=== PATIENT | female | born 1945 | race Caucasian/White ===

== ENCOUNTER 2019-12-12 15:01 | Emergency (ER) | payer MEDICARE, SELFPAY ==
--- NOTE | ~2019-12-12 | XR_ITS ---
EXAMINATION: XR chest 2V EXAM DATE: 12/12/2019 15:33 INDICATION: Cough and shortness of breath. TECHNIQUE: Frontal and lateral projections of the chest obtained and reviewed. Comparison is made to prior examination from 01/14/2016. FINDINGS: The lungs are clear. There are no pleural effusions. The cardiomediastinal silhouette is within normal limits. There is no pneumothorax suspected. The bones and soft tissues are unremarkab le. IMPRESSION: No acute cardiopulmonary findings. Reviewed, dictated and finalized at location A. ICIAN HELPER
--- NOTE | 2019-12-12 15:02 | ED.GENADULT ---
HPI - General Adult General Chief complaint: Upper Respiratory Infection Stated complaint: difficulty breathing Time Seen by Provider: 12/12/19 15:18 Source: patient Mode of arrival: ambulatory Limitations: no limitations History of Present Illness HPI narrative: 74-year-old female patient presents to the [facility] with complaints of shortness of breath that started today. Patient states that she has been sick for the last 3 weeks. Never ran a fever or had body aches or chills but states that she did have some nausea and vomiting. Patient states she has been feeling weak and tired. Patient thought she might of had the flu. Patient states she did get a flu shot this year. Patient denies taking anything for her symptoms. Patient states she presents today with complaints of shortness of breath that started today and a cough. Patient denies running any fevers. Patient states she has not followed up with her primary doctor since her symptoms began. Related Data Home Medications Medication Instructions Recorded Confirmed levothyroxine 50 mcg tablet 50 mcg PO DAILY 08/12/19 lithium carbonate 300 mg capsule 300 mg PO BID 08/12/19 lorazepam 1 mg tablet 1 mg PO DAILY PRN 08/12/19 omeprazole 40 mg capsule,delayed 40 mg PO DAILY 08/12/19 release trazodone 150 mg tablet 150 mg PO .COMPLEX tablet 08/12/19 Allergies Allergy/AdvReac Type Severity Reaction Status Date / Time carbamazepine Allergy Unknown Nausea Verified 11/23/19 11:41 codeine Allergy Unknown sensitive Verified 11/23/19 11:41 divalproex sodium [Depakote] Allergy Unknown manic Verified 11/23/19 11:41 gemfibrozil Allergy Unknown Nausea Verified 11/23/19 11:41 lovastatin Allergy Unknown Unknown Verified 11/23/19 11:41 morphine Allergy Unknown Unknown Verified 11/23/19 11:41 oxycodone Allergy Unknown Unknown Verified 11/23/19 11:41 phenazopyridine Allergy Unknown Nausea Verified 11/23/19 11:41 prednisone Allergy Unknown manic Verified 11/23/19 11:41 risperidone Allergy Unknown NOt right Verified 11/23/19 11:41 rosuvastatin Allergy Unknown Unknown Verified 11/23/19 11:41 Sulfa (Sulfonamide Allergy Unknown ITCHING Verified 11/23/19 11:41 Antibiotics) topiramate Allergy Unknown Nausea Verified 11/23/19 11:41 Review of Systems Review of Systems: Narrative: CONSTITUTIONAL: Denies fever, chills, or sweats. EYES: Denies visual changes, redness, or discharge. ENT: Denies rhinorrhea, congestion, sore throat, or otalgia. CARDIOVASCULAR: Denies chest pain, palpitations, or edema. RESPIRATORY: Positive cough with dyspnea. GASTROINTESTINAL: Denies abdominal pain, nausea, vomiting, or diarrhea. GENITOURINARY: Denies dysuria or hematuria. SKIN: Denies rash or itching. MUSCULOSKELETAL: Denies back pain, joint pain, or myalgia. NEUROLOGIC: Denies headache, numbness, or weakness. PSYCHIATRIC: Denies anxiety or depression. PMFSH Family History Family History Mother Family history of Alzheimer's disease Patient's mother is Father Patient's father is Other Depression Family history of cardiovascular disease Family history of malignant neoplasm of breast in first degree relative Social History Social History Smoking status: Former smoker Smoking end date: 10/07/75 Alcohol intake: never Comments At the time of my signature I agree with nursing past medical history, surgical, social, and family history. There is no relevant family history pertinent to the presenting complaint. Exam Narrative: Exam Narrative: GENERAL: Well-appearing, well-nourished, and in no acute distress. HEAD: Normocephalic, atraumatic. No tenderness noted to frontal and maxillary sinuses on palpation EYES: PERRLA and EOMI. ENT: Nares clear, no rhinorrhea or epistaxis. Mucous membranes moist. Posterior pharynx with no erythema, tonsil enlarge
[2019-12-12 15:03] VITALS: BP 125/69; PULSE 122; RESP 20; TEMP 36.5; O2SAT 98
--- NOTE | 2019-12-12 15:23 | ECG_ITS ---
Measurements Intervals [place] Rate: 106 P: 48 [place]: 152 QRS: 13 QRSD: 80 T: 64 QT: 326 QTc: 434 Interpretive Statements SINUS TACHYCARDIA INCOMPLETE RIGHT BUNDLE BRANCH BLOCK BASELINE ARTIFACT- I, III, AVL, V1 ABNORMAL ECG Electronically Signed On 12-16-2019 11:03:05 CDT by Seamus Ross D.O.
== END 2019-12-12 16:00 | disposition left against medical advice (07) ==
PROVIDERS: Emergency Provider Nurse Practitioner Family; PCP Family Medicine
DX: R06.02 Shortness of breath (principal); R00.0 Tachycardia, unspecified
CPT/HCPCS: 71046; 93005; 99213; G0463

== ENCOUNTER 2019-12-15 12:39 | Outpatient (CLI) | payer MEDICARE, SELFPAY ==
--- NOTE | ~2019-12-15 | CT_ITS ---
EXAMINATION: CTA chest PE protocol DATE: 12/15/2019 13:23 INDICATION: Dyspnea TECHNIQUE: Computed tomography angiography (CTA) of the chest was performed with 100 mL Omnipaque-350 intravenous contrast timed to evaluate the pulmonary arteries. Coronal maximum intensity projection 3D-reconstructions were created by the technologist. Automated exposure control and iterative reconst ruction technique were employed. Exam dose: 324.55 mGy-cm total exam DLP. COMPARISON: 12/11/2021 view chest FINDINGS: No CT evidence of pulmonary embolism; diagnostic contrast enhancement of the pulmonary adonay clark. No evidence of thoracic aortic aneurysm or dissection. No hilar or mediastinal mass lesion or lymphadenopathy. Normal heart size. No pericardial or pleural effusion. There is mild discoid atelectasis or scarring in the lower lobes. No pulmonary consolidation or suspi cious pulmonary mass lesion. Small sliding hiatal hernia. IMPRESSION: No evidence of pulmonary embolism Reviewed, dictated and finalized at [facility]. Reviewed, dictated and finalized at location B.
[2019-12-15 13:13] LABS: Estimated Glomerular Filt Rate > 60
== END 2019-12-15 12:40 | disposition home or self-care (01) ==
PROVIDERS: PCP Family Medicine; Visit Provider Family Medicine
DX: R06.00 Dyspnea, unspecified (principal); R07.9 Chest pain, unspecified
CPT/HCPCS: 36415; 71275; Q9967

== ENCOUNTER 2020-12-08 12:52 | Outpatient (CLI) | payer MEDICARE, SELFPAY ==
[2020-12-08 14:12] LABS: Lithium 0.7 mmol/L (0.6-1.2)
== END 2020-12-08 12:53 | disposition home or self-care (01) ==
PROVIDERS: Anesthesiology; PCP Family Medicine; Visit Provider Urology
DX: Z01.818 Encounter for other preprocedural examination (principal); F31.9 Bipolar disorder, unspecified
CPT/HCPCS: 36415; 80178

== ENCOUNTER 2020-12-09 15:34 | Outpatient (CLI) | payer MEDICARE, SELFPAY | END 2020-12-09 15:35 | disposition home or self-care (01) | LOC: ANHCOVIDVC 15:34 | PROVIDERS: PCP Family Medicine | DX: Z23 Encounter for immunization (principal) | CPT/HCPCS: 0001A; 91300 ==

== ENCOUNTER → 2020-12-13 02:15 | Outpatient (CLI) | payer MEDICARE, SELFPAY ==
[2020-12-13 22:46] LABS: SARS-CoV-2 RNA PCR Negative
== END ==
PROVIDERS: Family Provider Family Medicine; PCP Family Medicine; Visit Provider Urology
DX: Z01.812 Encounter for preprocedural laboratory examination (principal); Z20.822 Contact with and (suspected) exposure to COVID-19
CPT/HCPCS: C9803; U0003; U0005

== ENCOUNTER 2020-12-16 01:11 | Day surgery (SDC) | payer MEDICARE, SELFPAY ==
[2020-12-05 13:14] VITALS: BMI 30.9
--- NOTE | 2020-12-10 09:45 | PM.IMHP ---
H&P: HPI History of Present Illness Date/Time: 12/10/20 09:45 Chief Complaint: stress incontinence, cystocele Narrative: Rachelle Trinidad is a 75 year old female with stress incontinence and a cystocele Review of Systems Review of Systems: All systems reviewed & are unremarkable except as noted in HPI and below PMFSH Past Medical History Medical History (Updated 12/10/20 @ 09:49 by Barrington Claros MD) Obesity (BMI 30.0-34.9) Stress incontinence in female Family History Family History Mother Family history of Alzheimer's disease Patient's mother is Father Patient's father is Other Depression Family history of cardiovascular disease Family history of malignant neoplasm of breast in first degree relative Social History Social History Smoking packs per day: 1 Smoking cigarettes per day: 20.0 Years smoked: 5 Smoking pack-years: 5.00 Tobacco type: cigarettes Smoking end date: 10/07/75 Additional smoking assessment comments: QUIT 1976 Alcohol intake: never Substance use: never Substance use type: does not use Spiritual care concerns: No Meds Home Medications and Allergies Home Medications Medication Instructions Recorded Confirmed Type lorazepam 1 mg tablet 1 mg PO DAILY PRN 08/12/19 12/05/20 History omeprazole 40 mg capsule,delayed 40 mg PO DAILY #90 cap 12/14/19 12/05/20 Rx release lithium carbonate 300 mg capsule 300 mg PO BID #180 cap 05/02/20 12/05/20 Rx levothyroxine 50 mcg tablet See Rx Instructions .ROUTE 10/03/20 12/05/20 Rx .COMPLEX #90 tablet clonazepam 2 mg tablet 2 mg PO Q12H #180 tablet 11/04/20 12/05/20 Rx trazodone 150 mg tablet See Rx Instructions .ROUTE 11/07/20 12/05/20 Rx .COMPLEX #90 tablet valacyclovir [Valtrex] 1,000 mg PO DAILY 12/05/20 12/05/20 History duloxetine 60 mg capsule,delayed See Rx Instructions .ROUTE 12/09/20 Rx release .COMPLEX #180 capsule Allergies Allergy/AdvReac Type Severity Reaction Status Date / Time carbamazepine Allergy Unknown Nausea Verified 12/05/20 14:16 codeine Allergy Unknown sensitive Verified 12/05/20 14:16 divalproex sodium [Depakote] Allergy Unknown manic Verified 12/05/20 14:16 gemfibrozil Allergy Unknown Nausea Verified 12/05/20 14:16 lovastatin Allergy Unknown Joint Pain Verified 12/05/20 14:16 morphine Allergy Unknown Itching Verified 12/05/20 14:16 oxycodone Allergy Unknown Dizziness Verified 12/05/20 14:16 phenazopyridine Allergy Unknown Nausea Verified 12/05/20 14:16 prednisone Allergy Unknown manic Verified 12/05/20 14:16 risperidone Allergy Unknown NOt right Verified 12/05/20 14:16 rosuvastatin Allergy Unknown Joint Pain Verified 12/05/20 14:16 Sulfa (Sulfonamide Allergy Unknown ITCHING Verified 12/05/20 14:16 Antibiotics) topiramate Allergy Unknown Nausea Verified 12/05/20 14:16 Exam Const: General: cooperative and healthy appearing HENMT: Head: normal to inspection Ears: hearing grossly normal bilaterally Face and sinus: normal facial exam Eyes: General: appearance normal, both eyes and all related structures Resp: Effort & Inspection: normal respiratory effort and able to speak in complete sentences : Bimanual Exam- Adnexa, other: cystocele Back/Spine/Pelvis: Back: no CVA tenderness Skin: General skin exam: normal color Neuro: General: patient oriented x3 Extrem: General: normal to inspection Assessment and Plan Assessment and plan (1) JOELLE (stress urinary incontinence, female): Code(s): N39.3 - Stress incontinence (female) (male) Status: Acute Assessment and Plan: urethral sling (2) Cystocele: Qualifiers: Cystocele location: midline Qualified Code(s): N81.11 - Cystocele, midline Status: Acute Assessment and Plan: cystocele repair
[2020-12-16] VITALS (11 sets, daily range): BP systolic 93–128; BP diastolic 47–74; PULSE 75–84; RESP 12–18; TEMP 36.1–36.5; O2SAT 92–100
[2020-12-16] MEDS: LACTATED RINGERS 1,000 ML 30 ML IV CONT ×2 (07:00→09:13)
--- NOTE | 2020-12-16 07:17 | WPDHPUPDATE1 ---
History and Physical Update Update Date/Time: 12/16/20 07:17 History and Physical has been reviewed, including an updated exam of the patient. There are NO changes in the patient's condition. Risks, benefits, and alternatives have been discussed and questions answered. Patient agrees to proceed with procedure.
--- NOTE | 2020-12-16 07:23 | WPDANESEPPF ---
Anes - Initial Pre Proc Eval Procedure: Operation Date: 12/16/20 08:15 Proposed Procedures p Cystocele Repair - Barrington Claros MD s Urethral Sling - Barrington Claros MD Date/Time: 12/16/20 07:23 Surgeon: Barrington Claros MD Pre Op Diagnosis: cystocele, stress incontinence Patient Data Age: 75 Gender: F Height: 1.63 m Weight: 81.81 kg Allergies Allergy/AdvReac Type Severity Reaction Status Date / Time carbamazepine Allergy Unknown Nausea Verified 12/05/20 14:16 codeine Allergy Unknown sensitive Verified 12/05/20 14:16 divalproex sodium [Depakote] Allergy Unknown manic Verified 12/05/20 14:16 gemfibrozil Allergy Unknown Nausea Verified 12/05/20 14:16 lovastatin Allergy Unknown Joint Pain Verified 12/05/20 14:16 morphine Allergy Unknown Itching Verified 12/05/20 14:16 oxycodone Allergy Unknown Dizziness Verified 12/05/20 14:16 phenazopyridine Allergy Unknown Nausea Verified 12/05/20 14:16 prednisone Allergy Unknown manic Verified 12/05/20 14:16 risperidone Allergy Unknown NOt right Verified 12/05/20 14:16 rosuvastatin Allergy Unknown Joint Pain Verified 12/05/20 14:16 Sulfa (Sulfonamide Allergy Unknown ITCHING Verified 12/05/20 14:16 Antibiotics) topiramate Allergy Unknown Nausea Verified 12/05/20 14:16 Home Medications Medication Instructions Recorded Confirmed Type lorazepam 1 mg tablet 1 mg PO DAILY PRN 08/12/19 12/05/20 History omeprazole 40 mg capsule,delayed 40 mg PO DAILY #90 cap 12/14/19 12/05/20 Rx release lithium carbonate 300 mg capsule 300 mg PO BID #180 cap 05/02/20 12/05/20 Rx levothyroxine 50 mcg tablet See Rx Instructions .ROUTE 10/03/20 12/05/20 Rx .COMPLEX #90 tablet clonazepam 2 mg tablet 2 mg PO Q12H #180 tablet 11/04/20 12/05/20 Rx trazodone 150 mg tablet See Rx Instructions .ROUTE 11/07/20 12/05/20 Rx .COMPLEX #90 tablet valacyclovir [Valtrex] 1,000 mg PO DAILY 12/05/20 12/05/20 History duloxetine 60 mg capsule,delayed See Rx Instructions .ROUTE 12/09/20 Rx release .COMPLEX #180 capsule ECG: Date of Service: 12/12/19 Procedure(s): CA 12 lead EKG Accession Number(s): [id number] cc: ~ Measurements Intervals [place] Rate: 106 P: 48 [place]: 152 QRS: 13 QRSD: 80 T: 64 QT: 326 QTc: 434 Interpretive Statements SINUS TACHYCARDIA INCOMPLETE RIGHT BUNDLE BRANCH BLOCK BASELINE ARTIFACT- I, III, AVL, V1 ABNORMAL ECG Electronically Signed On 12-16-2019 11:03:05 CDT by Seamus Ross D.O. Dictated By: Seamus Ross DO 12/12/19 1525 Patient hx anesthesia problems: none Family hx anesthesia problems: none PMFSH Past Medical History Medical History (Updated 12/16/20 @ 07:26 by Edenilson Carroll MD) Bipolar disorder with psychotic features Hypertension Hypothyroidism (acquired) Obesity (BMI 30.0-34.9) Obsessive compulsive personality disorder Stress incontinence in female Family History Family History Mother Family history of Alzheimer's disease Patient's mother is Father Patient's father is Other Depression Family history of cardiovascular disease Family history of malignant neoplasm of breast in first degree relative Social History Social History Smoking packs per day: 1 Smoking cigarettes per day: 20.0 Years smoked: 5 Smoking pack-years: 5.00 Tobacco type: cigarettes Smoking end date: 10/07/75 Additional smoking assessment comments: QUIT 1975 Alcohol intake: never Substance use: never Substance use type: does not use Living arrangements: alone Spiritual care concerns: No An
[2020-12-16] MEDS: ceFAZolin 2 GM/D5W 50 ML 2 GM/50 ML BAG IVPB (08:18)
[2020-12-16] MEDS: BUPIVACAINE/EPINEPHRINE 0.25% 50 ML VIAL 10 ML INFILTRATE (08:44)
[2020-12-16] MEDS: KETOROLAC 15 MG/ML VIAL (*BKC) IV PUSH ×2 (08:52→21:04)
--- NOTE | 2020-12-16 09:10 | P.OP_ITS ---
Procedure Note - Detailed Date of procedure: 12/16/20 Pre-op diagnosis: cystocele, stress incontinence Cystocele Stress incontinence Post-op diagnosis: same Procedure performed: Cystocele repair/anterior colporrhaphy Urethral sling Cystoscopy Description of procedure: She understood the risks of bleeding, infection, damage to surrounding organs, dyspareunia, postoperative stress incontinence, and recurrence of prolapse, mesh exposure, obstructive voiding requiring secondary procedure. She agrees to proceed. She has correctly identified and informed consent was obtained and she was brought to the operating room. She was given general anesthesia. She was placed in the dorsal thigh position. She was prepped and draped in sterile fashion. Given appropriate perioperative antibiotics. A time-out was bright lzacano. I placed a Vital catheter. I placed a [place] retractor. I infiltrated the subcutaneous tissues of the anterior vaginal wall with local mixed with injectable saline. I made a midline vaginal incision. I dissected out laterally dissecting the mucosa off the underlying fascial structures. I dissected towards the vaginal apex as well. I then performed a standard cystocele repair with plicating sutures of 0 Vicryl. This reduced the cystocele. I then trimmed excess vaginal mucosa. I closed the vaginal closed with a running 2 0 Vicryl suture. I then marked on the inner thigh incisions. I anesthetized the skin and made those incisions. I anesthetized the anterior vaginal wall over the mid urethra. I made a 1 cm incision. I dissected out laterally. I took great care not to injure the urethra or the vaginal wall. I passed the trocars 1st on the left than on the right. I did this from the thigh incision towards the vaginal incision. The sling was connected to the trocars a nd brought out through the thigh incision. I tensioned the sling appropriately. I cut and and removed the plastic sheaths. I then closed the incision with 2 0 Vicryl. There was excellent hemostasis. I then performed cystoscopy. The bladder is examined. There is no surgical artifact or injury. Both ureteral orifices were seen to excrete clear yellow urine. At the conclusion she was awakened and transferred to the PACU in stable condition. Sponge count is correct x2. Implants: None Anesthesia: GETA Surgeon: Barrington Claros MD Drains: No Packing: No Pathology: none sent Complications: No immediate complications Condition: stable Disposition: PACU
--- NOTE | 2020-12-16 10:05 | SUR.PHASEI ---
1000 sbar faxed floor notified
[2020-12-16] MEDS: KCL 20 MEQ/D5/0.45% SOD CHL 1,000 ML 100 ML IV CONT (11:48)
[2020-12-16] MEDS: clonazePAM (*CRX) 0.5 MG TABLET 2 MG PO ×2 (11:51→21:54)
[2020-12-16] MEDS: DULoxetine HCL 60 MG CAPSULE.DR PO ×2 (11:52→21:54)
[2020-12-16] MEDS: DOCUSATE SODIUM 100 MG CAPSULE PO (11:52)
[2020-12-16] MEDS: PANTOPRAZOLE 40 MG TABLET PO (11:53)
[2020-12-16] MEDS: ACETAMINOPHEN 325 MG TABLET 650 MG PO ×3 (12:00→21:54)
--- NOTE | 2020-12-16 12:17 | PC.NURSE ---
1141 Called Pharmacy to send up Valtrex and [place] Carbonate. Stated it will be sent.
--- NOTE | 2020-12-16 12:18 | OBPPTRN ---
Patient transferred to post room #288 via bed @ 1047. Oriented to unit, room, information board, and security measures. Patient verbalizes understanding.
--- NOTE | 2020-12-16 12:57 | PC.NURSE ---
1255 left for Pharmacy to send up Valtrex and [place] Carbonate meds.
[2020-12-16] MEDS: LITHIUM CARBONATE 300 MG CAPSULE PO (16:13)
--- NOTE | 2020-12-16 16:20 | PC.NURSE ---
1535 Pharmacy only sent 1 500mg pill of Valtrex pt takes 2. Will hold till tomorrow.
[2020-12-16] MEDS: traZODone HCL 50 MG TABLET PO (21:54)
[2020-12-17 04:00] VITALS: BP 126/68; PULSE 91; RESP 16; TEMP 36.6; O2SAT 97
[2020-12-17] MEDS: ACETAMINOPHEN 325 MG TABLET 650 MG PO (05:11)
[2020-12-17] MEDS: LEVOTHYROXINE SODIUM 50 MCG TABLET PO (05:12)
[2020-12-17 08:00] VITALS: BP 120/67; PULSE 91; RESP 18; TEMP 36.7; O2SAT 100
[2020-12-17] MEDS: clonazePAM (*CRX) 0.5 MG TABLET 2 MG PO (09:16)
[2020-12-17] MEDS: valACYclovir HCL 500 MG TABLET 1000 MG PO (09:17)
[2020-12-17] MEDS: DULoxetine HCL 60 MG CAPSULE.DR PO (09:17)
[2020-12-17] MEDS: LITHIUM CARBONATE 300 MG CAPSULE PO (09:17)
[2020-12-17] MEDS: PANTOPRAZOLE 40 MG TABLET PO (09:17)
[2020-12-17] MEDS: DOCUSATE SODIUM 100 MG CAPSULE PO (09:17)
--- NOTE | 2020-12-17 09:55 | PC.NURSE ---
Patient states she drove herself here and will drive herself home. I advised against her driving herself home but she states she does not have anyone to come get her. I took her out to her car in a wheelchair, she stood up and was stable on her feet. She got in the car and drove off.
== END 2020-12-17 09:55 | disposition home or self-care (01) ==
LOC: ANHSURGERY 08:05 → ANHOB2 11:05
PROVIDERS: Family Provider Family Medicine; PCP Family Medicine; Visit Provider Urology
PROC: (CPT 57240; principal; 2020-12-16 08:15)
PROC: (CPT 57288; 2020-12-16 08:15)
DX: N81.11 Cystocele, midline (principal); N39.3 Stress incontinence (female) (male); F31.89 Other bipolar disorder; I10 Essential (primary) hypertension; E03.9 Hypothyroidism, unspecified; Z87.891 Personal history of nicotine dependence; E66.9 Obesity, unspecified; Z68.31 Body mass index [BMI] 31.0-31.9, adult
CPT/HCPCS: 57288; 57240; 99199; A9270; C1771; J0131; J0690; J1885; J2250; J2405; J2704; J3010; J3480; J7030; J7120

== ENCOUNTER 2020-12-30 15:27 | Outpatient (CLI) | payer MEDICARE, SELFPAY | END 2020-12-30 15:28 | disposition home or self-care (01) | LOC: ANHCOVIDVC 15:27 | PROVIDERS: PCP Family Medicine | DX: Z23 Encounter for immunization (principal) | CPT/HCPCS: 0002A; 91300 ==

== ENCOUNTER 2021-03-19 06:23 | Inpatient (IN) | payer MEDICARE, SELFPAY ==
[2021-03-19] VITALS (24 sets, daily range): BP systolic 122–171; BP diastolic 56–78; PULSE 64–112; RESP 17–30; TEMP 36.6–36.8; O2SAT 91–98; BMI 29.0
--- NOTE | ~2021-03-19 | CT_ITS ---
EXAMINATION: CT brain wo con EXAM DATE: 03/19/2021 07:58 INDICATION: Altered level of consciousness and confusion. TECHNIQUE: Spiral CT of the head was performed without contrast. Axial, coronal and sagittal images were reviewed. The dose-length product (DLP) for this examination was 605.33 mGy-cm. The exposure w as tailored according to patient size, and iterative reconstruction (ASIR) was used as additional dos e reduction technique. Comparison is made to prior examination from 01/23/2017. FINDINGS: Mild cerebral atrophy. There is no acute intraparenchymal hemorrhage. No evidence of intra parenchymal brain mass lesion. No evidence of acute infarction. There is no mass effect or midline shift. The ventricles are normal in size. There are no extra-axial collections. There are no acute calvarial fractures. Patient has had bilateral ocular lens surgery. Bilateral carotid siphon arteria l sclerosis. Soft tissue is unremarkable. The visualized sinuses and mastoid air cells are well aera gracie. IMPRESSION: 1. No acute intracranial findings. Reviewed, dictated and finalized at location A.
--- NOTE | ~2021-03-19 | US_ITS ---
US abdomen limited INDICATION: Elevated liver function tests PROCEDURE: Realtime right upper abdominal ultrasound. COMPARISON: No prior studies for comparison. FINDINGS: The pancreas is normal without focal mass or pancreatic ductal dilation. Liver echotexture is normal without focal mass or intrahepatic biliary dilatation. There is normal directional flow i n the portal vein. The gallbladder is normal without stones, gallbladder wall thickening or pericholecystic fluid. Comm on bile duct measures 6 mm. No sonographic Pfeiffer's sign. IMPRESSION: 1: Unremarkable limited abdominal ultrasound. Reviewed, dictated and finalized at location A.
--- NOTE | ~2021-03-19 | XR_ITS ---
EXAMINATION: XR chest 1V portable EXAM DATE: 03/19/2021 09:25 INDICATION: Altered mental status, bruising all over. TECHNIQUE: Portable AP frontal chest x-ray was obtained. Comparison is made to prior examination from 12/12/2019. FINDINGS: The lungs are clear. There are no pleural effusions. Cardiomediastinal silhouette is norm al. There is no pneumothorax suspected. The bones and soft tissues are unremarkable. IMPRESSION: No acute cardiopulmonary findings. Reviewed, dictated and finalized at location A.
--- NOTE | 2021-03-19 06:37 | ECG_ITS ---
Measurements Intervals [place] Rate: 100 P: 23 IN: 144 QRS: -12 QRSD: 102 T: 20 QT: 366 QTc: 472 Interpretive Statements SINUS TACHYCARDIA BASELINE ARTIFACT- I, III, AVR, AVL, AVF, V1-V6 BORDERLINE ECG Electronically Signed On 03-19-2021 7:36:06 CDT by Seamus Ross D.O.
[2021-03-19 06:58] LABS: Basophils Absolute Auto 0.1 K/mm3 (0.0-0.1); Basophils Percent Auto 0.7 % (0.2-1.2); Eosinophils Percent Auto 0.3 % (0-4.4); Hematocrit 40.4 % (37.0-47.0); Hemoglobin 13.1 g/dL (12.0-15.0); Immature Granulocyte Absolute 0.07 K/mm3 (0.00-0.031); Immature Granulocyte Percent A 0.5 % (0-0.5); Lymphocytes Absolute Auto 1.14 K/mm3 (0.9-3.2); Lymphocytes Percent Auto 8.4 % (18.3-44.2); Mean Corpuscular HGB Conc 32.4 g/dl (32-36); Mean Corpuscular Hemoglobin 29.6 pg (26-34); Mean Corpuscular Volume 91.4 fl (80-100); Mean Platelet Volume 9.2 fl (7.4-10.4); Monocytes Absolute Auto 1.1 K/mm3 (0.1-0.6); Neutrophils Absolute Auto 11.1 K/mm3 (1.3-6.7); Neutrophils Percent Auto 82.1 % (45.5-73.1); Platelet Count Result 300 k/mm3 (150-375); Red Blood Count 4.42 M/mm3 (4.2-5.4); Red Cell Distribution Width 14.2 % (11.5-14.5); White Blood Count 13.6 K/mm3 (4.5-10.0)
[2021-03-19 07:28] LABS: Add Urine Microscopic? YES; Appearance Urine Clear (Clear); Bacteria Urine Trace /hpf; Bilirubin Urine Negative (Negative); Blood Urine 3+ (Negative); Color Urine Amber (Yellow); Glucose Urine UA Negative (Negative); Ketones Urine Trace mg/dL (Negative); Leukocyte Esterase Ur Negative LEU/UL (Negative); Mucus Urine Few /lpf; Nitrate Urine Negative (Negative); Protein Urine 3+ mg/dL (Negative); Specific Grav Ur 1.026 (1.001-1.035); Squamous Epithelial Cell Urine Rare /hpf (Few); Urobilinogen Urine Negative mg/dL (<2.0)
[2021-03-19 07:29] LABS: Alanine Aminotransferase 165 U/L (4-35); Albumin Level 4.3 g/dL (3.5-5.1); Alkaline Phosphatase 111 U/L (38-126); Anion Gap 9 mmol/L (8-16); Bilirubin,Total 1.1 mg/dL (0.2-1.3); Blood Urea Nitrogen 20 mg/dL (7-17); Calcium 10.1 mg/dL (8.4-10.2); Carbon Dioxide 24 mmol/L (22-30); Chloride 107 mmol/L (98-107); Estimated CRCL calculation 263 ml/min; Estimated Glomerular Filt Rate > 60; Glucose 123 mg/dL (65-105); Potassium 3.8 mmol/L (3.4-5.0); Sodium 140 mmol/L (137-145)
[2021-03-19 07:34] LABS: Magnesium 2.2 mg/dL (1.6-2.3)
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
[2021-03-19 07:38] LABS: Partial Thromboplastin Time 27.9 SECONDS (22.3-36.8)
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
[2021-03-19] MEDS: SODIUM CHLORIDE 0.9% IV 1,000 ML 999 ML IV CONT (07:45)
[2021-03-19] MEDS: SODIUM CHLORIDE 0.9% IV 1,000 ML 999 ML (07:46)
[2021-03-19 07:48] LABS: Troponin I 0.071 ng/mL (0.000-0.034)
[2021-03-19 08:17] LABS: Creatine Kinase > 16000 U/L (30-135)
[2021-03-19 08:18] LABS: Aspartate Amino Transferase 756 U/L (14-36)
[2021-03-19 09:06] LABS: Lithium 0.8 mmol/L (0.6-1.2)
[2021-03-19] MEDS: SODIUM CHLORIDE 0.9% IV 1,000 ML 200 ML IV CONT (09:09)
[2021-03-19 10:52] LABS: Troponin I 0.068 ng/mL (0.000-0.034)
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
--- NOTE | 2021-03-19 13:46 | PC.NURSE ---
This patient, Rachelle Trinidad, was admitted to IMU Room 231-01 at 1155. Patient/family oriented to hospital policies and general routines including ID bracelet, bed and alarms, visiting hours, pain management, procedures, bathroom and other care routines, personal items, smoking policy, room service/diet, and visiting hours. Information on how to activate the Rapid Response Team has been discussed. Patient/Family are encouraged to report perceived risks to care and to ask questions if they do not understand what they are told or what they should do.
[2021-03-19 14:23] LABS: Troponin I 0.061 ng/mL (0.000-0.034)
--- NOTE | 2021-03-19 16:07 | ADMGEN ---
This patient, Rachelle Trinidad, was admitted to IMU Room 231-01. Patient/family oriented to hospital policies and general routines including ID bracelet, bed and alarms, visiting hours, pain management, procedures, bathroom and other care routines, personal items, smoking policy, room service/diet, and visiting hours. Information on how to activate the Rapid Response Team has been discussed. Patient/Family are encouraged to report perceived risks to care and to ask questions if they do not understand what they are told or what they should do.
[2021-03-19 16:28] LABS: Anion Gap 6 mmol/L (8-16); Blood Urea Nitrogen 14 mg/dL (7-17); Carbon Dioxide 22 mmol/L (22-30); Chloride 113 mmol/L (98-107); Estimated CRCL calculation 61 ml/min; Estimated Glomerular Filt Rate > 60; Glucose 110 mg/dL (65-105); Potassium 3.7 mmol/L (3.4-5.0); Sodium 141 mmol/L (137-145)
[2021-03-19 16:56] LABS: Creatine Kinase > 16000 U/L (30-135)
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
[2021-03-19] MEDS: ACETAMINOPHEN 325 MG TABLET 650 MG PO (20:43)
[2021-03-19] MEDS: LACTATED RINGERS 1,000 ML 125 ML IV CONT (20:43)
[2021-03-19] MEDS: clonazePAM (*CRX) 0.5 MG TABLET 2 MG PO (20:43)
[2021-03-19] MEDS: lamoTRIgine 100 MG TABLET PO (20:44)
[2021-03-19] MEDS: lamoTRIgine 25 MG TABLET 50 MG PO (20:44)
[2021-03-19] MEDS: traZODone HCL 50 MG TABLET 150 MG PO (20:45)
[2021-03-19] MEDS: DULoxetine HCL 60 MG CAPSULE.DR PO (20:46)
[2021-03-19] MEDS: LITHIUM CARBONATE 300 MG CAPSULE PO (20:46)
[2021-03-19] MEDS: PANTOPRAZOLE 40 MG TABLET PO (20:46)
[2021-03-19 21:46] LABS: Creatine Kinase > 16000 U/L (30-135)
[2021-03-20] VITALS (14 sets, daily range): BP systolic 111–164; BP diastolic 52–77; PULSE 53–101; RESP 16–20; TEMP 36.2–36.7; O2SAT 96–100
[2021-03-20] MEDS: LACTATED RINGERS 1,000 ML 125 ML IV CONT ×3 (04:30→20:11)
[2021-03-20 05:35] LABS: Hematocrit 37.6 % (37.0-47.0); Hemoglobin 11.5 g/dL (12.0-15.0); Mean Corpuscular HGB Conc 30.6 g/dl (32-36); Mean Corpuscular Hemoglobin 29.6 pg (26-34); Mean Corpuscular Volume 96.9 fl (80-100); Mean Platelet Volume 9.3 fl (7.4-10.4); Platelet Count Result 227 k/mm3 (150-375); Red Blood Count 3.88 M/mm3 (4.2-5.4); Red Cell Distribution Width 14.6 % (11.5-14.5); White Blood Count 8.4 K/mm3 (4.5-10.0)
[2021-03-20 05:56] LABS: Alanine Aminotransferase 186 U/L (4-35); Albumin Level 3.5 g/dL (3.5-5.1); Alkaline Phosphatase 83 U/L (38-126); Anion Gap 6 mmol/L (8-16); Bilirubin,Total 0.8 mg/dL (0.2-1.3); Blood Urea Nitrogen 8 mg/dL (7-17); Calcium 9.3 mg/dL (8.4-10.2); Carbon Dioxide 26 mmol/L (22-30); Chloride 112 mmol/L (98-107); Estimated CRCL calculation 61 ml/min; Estimated Glomerular Filt Rate > 60; Glucose 112 mg/dL (65-105); Magnesium 2.1 mg/dL (1.6-2.3); Potassium 3.4 mmol/L (3.4-5.0); Sodium 144 mmol/L (137-145)
[2021-03-20 06:20] LABS: Aspartate Amino Transferase 780 U/L (14-36)
[2021-03-20 06:24] LABS: Creatine Kinase > 16000 U/L (30-135)
[2021-03-20] MEDS: LEVOTHYROXINE SODIUM 50 MCG TABLET PO (06:28)
[2021-03-20] MEDS: lamoTRIgine 25 MG TABLET 50 MG PO ×2 (09:30→20:10)
[2021-03-20] MEDS: LITHIUM CARBONATE 300 MG CAPSULE PO ×2 (09:30→20:11)
[2021-03-20] MEDS: PANTOPRAZOLE 40 MG TABLET PO ×2 (09:30→20:10)
[2021-03-20] MEDS: lamoTRIgine 100 MG TABLET PO ×2 (09:30→20:11)
[2021-03-20] MEDS: valACYclovir HCL 500 MG TABLET 1000 MG PO (09:31)
[2021-03-20] MEDS: DULoxetine HCL 60 MG CAPSULE.DR PO ×2 (09:32→20:10)
[2021-03-20] MEDS: clonazePAM (*CRX) 0.5 MG TABLET 2 MG PO ×2 (09:35→20:10)
[2021-03-20 11:06] LABS: Creatine Kinase > 16000 U/L (30-135)
[2021-03-20 11:42] LABS: Hepatitis B Surface Antigen Negative (Negative)
[2021-03-20 11:48] LABS: HAV RESULT Negative (Negative); Hepatitis B Core IgM Result Negative (Negative)
[2021-03-20 12:00] LABS: Hepatitis C Virus Antibody Negative (Negative)
[2021-03-20] MEDS: TOLNAFTATE 1% POWDER 45 GM BTL 1 APPLIC TOPICAL ×2 (12:52→20:10)
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
[2021-03-20] MEDS: traZODone HCL 50 MG TABLET 150 MG PO (20:10)
--- NOTE | 2021-03-20 20:21 | PC.NURSE ---
When I entered pts room she was irrate with me saying that I called her an evil person when I said tim. During my assessment pt was paranoid and convinced we were talking about her w her preacher. She states he is in the hallway and she hears us talking to him. There is no visitors here and none were here when I arrived at work. Currently I was able calm pt down with Taya De León. She doesn't want a bath but she let us change her bed and get her something to eat. Her mood seems improved at the moment.
[2021-03-21] VITALS (17 sets, daily range): BP systolic 134–155; BP diastolic 57–89; PULSE 80–110; RESP 12–20; TEMP 36.4–36.6; O2SAT 95–100
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
--- NOTE | 2021-03-21 01:18 | PC.NURSE ---
Pt has been yelling when investigated further pt believes there are people in the room with her she is talking to
[2021-03-21 05:07] LABS: Hematocrit 32.9 % (37.0-47.0); Hemoglobin 10.5 g/dL (12.0-15.0); Mean Corpuscular HGB Conc 31.9 g/dl (32-36); Mean Corpuscular Hemoglobin 29.7 pg (26-34); Mean Corpuscular Volume 92.9 fl (80-100); Mean Platelet Volume 9.1 fl (7.4-10.4); Platelet Count Result 204 k/mm3 (150-375); Red Blood Count 3.54 M/mm3 (4.2-5.4); Red Cell Distribution Width 14.4 % (11.5-14.5); White Blood Count 5.7 K/mm3 (4.5-10.0)
[2021-03-21 05:21] LABS: Alanine Aminotransferase 174 U/L (4-35); Albumin Level 3.2 g/dL (3.5-5.1); Alkaline Phosphatase 75 U/L (38-126); Anion Gap 6 mmol/L (8-16); Aspartate Amino Transferase 568 U/L (14-36); Bilirubin,Total 0.5 mg/dL (0.2-1.3); Blood Urea Nitrogen 6 mg/dL (7-17); Calcium 9.1 mg/dL (8.4-10.2); Carbon Dioxide 27 mmol/L (22-30); Chloride 110 mmol/L (98-107); Estimated CRCL calculation 61 ml/min; Estimated Glomerular Filt Rate > 60; Glucose 117 mg/dL (65-105); Potassium 3.4 mmol/L (3.4-5.0); Sodium 143 mmol/L (137-145)
[2021-03-21] MEDS: LACTATED RINGERS 1,000 ML 125 ML IV CONT ×2 (06:02→14:51)
[2021-03-21] MEDS: LEVOTHYROXINE SODIUM 50 MCG TABLET PO (06:02)
[2021-03-21 06:39] LABS: Creatine Kinase > 16000 U/L (30-135)
[2021-03-21] MEDS: LITHIUM CARBONATE 300 MG CAPSULE PO ×2 (09:13→20:23)
[2021-03-21] MEDS: valACYclovir HCL 500 MG TABLET 1000 MG PO (09:13)
[2021-03-21] MEDS: lamoTRIgine 25 MG TABLET 50 MG PO ×2 (09:13→20:23)
[2021-03-21] MEDS: PANTOPRAZOLE 40 MG TABLET PO ×2 (09:14→20:23)
[2021-03-21] MEDS: DULoxetine HCL 60 MG CAPSULE.DR PO ×2 (09:14→20:25)
[2021-03-21] MEDS: lamoTRIgine 100 MG TABLET PO ×2 (09:14→20:23)
[2021-03-21] MEDS: clonazePAM (*CRX) 0.5 MG TABLET 2 MG PO ×2 (09:16→20:26)
[2021-03-21] MEDS: TOLNAFTATE 1% POWDER 45 GM BTL 1 APPLIC TOPICAL ×2 (11:11→20:22)
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
[2021-03-21 16:23] LABS: Amphetamine Screen Urine Negative (Negative); Barbiturate Screen Urine Negative (Negative); Benzodiazepines Screen Urine Negative (Negative); Cannabinoid Screen Urine Negative (Negative); Cocaine Screen Urine Negative (Negative); Methadone Screen Urine Negative (Negative); Opiate Screen Urine Negative (Negative); Phencyclidine Screen Urine Negative (Negative)
[2021-03-21] MEDS: SODIUM BICARBONATE 8.4% 150 MEQ in WATER, STERILE FOR INJECTION 950 ML IV CONT (16:35)
[2021-03-21] MEDS: traZODone HCL 50 MG TABLET 150 MG PO (20:23)
[2021-03-22] VITALS (12 sets, daily range): BP systolic 141–153; BP diastolic 68–100; PULSE 89–108; RESP 20–22; TEMP 36.4–36.9; O2SAT 93–97
[2021-03-22 05:09] LABS: Hematocrit 39.9 % (37.0-47.0); Hemoglobin 12.6 g/dL (12.0-15.0); Mean Corpuscular HGB Conc 31.6 g/dl (32-36); Mean Corpuscular Hemoglobin 30.4 pg (26-34); Mean Corpuscular Volume 96.4 fl (80-100); Mean Platelet Volume 9.1 fl (7.4-10.4); Platelet Count Result 249 k/mm3 (150-375); Red Blood Count 4.14 M/mm3 (4.2-5.4); Red Cell Distribution Width 14.7 % (11.5-14.5); White Blood Count 5.8 K/mm3 (4.5-10.0)
[2021-03-22 05:39] LABS: Alanine Aminotransferase 189 U/L (4-35); Albumin Level 3.9 g/dL (3.5-5.1); Alkaline Phosphatase 78 U/L (38-126); Anion Gap 8 mmol/L (8-16); Aspartate Amino Transferase 522 U/L (14-36); Bilirubin,Total 0.7 mg/dL (0.2-1.3); Blood Urea Nitrogen 5 mg/dL (7-17); Calcium 9.4 mg/dL (8.4-10.2); Carbon Dioxide 32 mmol/L (22-30); Chloride 104 mmol/L (98-107); Estimated CRCL calculation 70 ml/min; Estimated Glomerular Filt Rate > 60; Glucose 107 mg/dL (65-105); Potassium 3.7 mmol/L (3.4-5.0); Sodium 144 mmol/L (137-145)
[2021-03-22 06:10] LABS: Creatine Kinase 11410 U/L (30-135)
[2021-03-22] MEDS: SODIUM BICARBONATE 8.4% 150 MEQ in WATER, STERILE FOR INJECTION 950 ML IV CONT ×3 (06:13→18:15)
[2021-03-22] MEDS: LEVOTHYROXINE SODIUM 50 MCG TABLET PO (06:13)
--- NOTE | 2021-03-22 08:46 | PCPTNOTE ---
The patient treatment was not able to be completed on 03-22-2021 due to patient refused. Patient stated Because people are lying to me. Patient appears confused this date. Therapist encouraged patient for therapy participation however patient continued to refuse. Will plan to continue treatment per plan of care.
[2021-03-22 09:07] LABS: Glucose Point of Care 128 mg/dl (65-105)
[2021-03-22] MEDS: ENOXAPARIN 40 MG/0.4 ML SYRINGE SUB-Q (09:33)
[2021-03-22] MEDS: lamoTRIgine 100 MG TABLET PO ×2 (09:34→20:53)
[2021-03-22] MEDS: valACYclovir HCL 500 MG TABLET 1000 MG PO (09:34)
[2021-03-22] MEDS: PANTOPRAZOLE 40 MG TABLET PO ×2 (09:34→20:52)
[2021-03-22] MEDS: LITHIUM CARBONATE 300 MG CAPSULE PO ×2 (09:34→20:52)
[2021-03-22] MEDS: TOLNAFTATE 1% POWDER 45 GM BTL 1 APPLIC TOPICAL ×2 (09:34→20:52)
[2021-03-22] MEDS: DULoxetine HCL 60 MG CAPSULE.DR PO ×2 (09:34→20:53)
[2021-03-22] MEDS: lamoTRIgine 25 MG TABLET 50 MG PO ×2 (09:34→20:53)
[2021-03-22] MEDS: clonazePAM (*CRX) 0.5 MG TABLET 2 MG PO ×2 (09:47→20:51)
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
[2021-03-22 18:33] LABS: Glucose Point of Care 105 mg/dl (65-105)
[2021-03-22] MEDS: ACETAMINOPHEN 325 MG TABLET 650 MG PO (20:51)
[2021-03-22] MEDS: traZODone HCL 50 MG TABLET 150 MG PO (20:52)
[2021-03-23] VITALS (11 sets, daily range): BP systolic 132–179; BP diastolic 58–86; PULSE 83–107; RESP 12–20; TEMP 36.4–37.1; O2SAT 94–98
--- NOTE | 2021-03-23 02:23 | PC.NURSE ---
Pt mentation waxes and wanes. Can sometimes answer questions appropriately but most often not. Pt continues to call out intermittently for family members as well as parroting names she hears on the television. Pt began calling out for Biden after seeing a news segment. Pt confusion and agitaion worsens when she is retaining. Pt most often unable to use beside commode due to weakness and inability to follow commands. Pt does not seem to comprehend the bed boyle as an alternative.
[2021-03-23 05:09] LABS: Hematocrit 34.7 % (37.0-47.0); Hemoglobin 10.8 g/dL (12.0-15.0); Mean Corpuscular HGB Conc 31.1 g/dl (32-36); Mean Corpuscular Hemoglobin 29.7 pg (26-34); Mean Corpuscular Volume 95.3 fl (80-100); Mean Platelet Volume 8.7 fl (7.4-10.4); Platelet Count Result 202 k/mm3 (150-375); Red Blood Count 3.64 M/mm3 (4.2-5.4); Red Cell Distribution Width 14.7 % (11.5-14.5); White Blood Count 4.9 K/mm3 (4.5-10.0)
[2021-03-23 05:35] LABS: Alanine Aminotransferase 135 U/L (4-35); Albumin Level 3.1 g/dL (3.5-5.1); Alkaline Phosphatase 59 U/L (38-126); Anion Gap 3 mmol/L (8-16); Aspartate Amino Transferase 241 U/L (14-36); Bilirubin,Total 0.5 mg/dL (0.2-1.3); Blood Urea Nitrogen 5 mg/dL (7-17); Calcium 8.5 mg/dL (8.4-10.2); Carbon Dioxide 38 mmol/L (22-30); Chloride 100 mmol/L (98-107); Creatine Kinase 2881 U/L (30-135); Estimated CRCL calculation 70 ml/min; Estimated Glomerular Filt Rate > 60; Glucose 102 mg/dL (65-105); Sodium 141 mmol/L (137-145)
[2021-03-23] MEDS: SODIUM BICARBONATE 8.4% 150 MEQ in WATER, STERILE FOR INJECTION 950 ML IV CONT ×2 (06:01→08:24)
[2021-03-23] MEDS: LEVOTHYROXINE SODIUM 50 MCG TABLET PO (06:03)
[2021-03-23 07:52] LABS: Glucose Point of Care 105 mg/dl (65-105)
[2021-03-23] MEDS: ENOXAPARIN 40 MG/0.4 ML SYRINGE SUB-Q (08:26)
[2021-03-23] MEDS: TOLNAFTATE 1% POWDER 45 GM BTL 1 APPLIC TOPICAL (08:26)
[2021-03-23] MEDS: valACYclovir HCL 500 MG TABLET 1000 MG PO (08:26)
[2021-03-23] MEDS: SODIUM CHLORIDE 0.9% IV 1,000 ML 75 ML IV CONT (12:33)
--- NOTE | 2021-03-23 12:47 | PCPTNOTE ---
RN reports that pt is very aggressive and combative at this time. RN requests that PT hold therapy session until pt is more appropriate.
[2021-03-23] MEDS: OLANZapine 10 MG INJ VIAL 2.5 MG IM (13:09)
[2021-03-23] MEDS: WATER, STERILE FOR INJECTION 10 ML VIAL XX (13:09)
--- NOTE | 2021-03-23 13:13 | PCOTNOTE ---
Attempted to see patient twice this date, however RN advised not to see due to patient being combative. Pt given sedative this pm.
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
--- NOTE | 2021-03-23 22:06 | PC.NURSE ---
This patient, Rachelle Trinidad, was transferred to room 333 on 03/23/21 at 2132. Personal belongings sent with patient. Report given to KATI Conde. Appropriate documentation sent with patient.
[2021-03-24] VITALS (9 sets, daily range): BP systolic 114–139; BP diastolic 46–71; PULSE 55–104; RESP 14–24; TEMP 36.2–37.2; O2SAT 95–97
[2021-03-24] MEDS: OLANZapine 10 MG INJ VIAL 2.5 MG IM (05:02)
[2021-03-24] MEDS: OLANZapine 10 MG INJ VIAL 5 MG IM (06:48)
[2021-03-24 07:01] LABS: Hematocrit 36.9 % (37.0-47.0); Hemoglobin 11.9 g/dL (12.0-15.0); Mean Corpuscular HGB Conc 32.2 g/dl (32-36); Mean Corpuscular Hemoglobin 29.8 pg (26-34); Mean Corpuscular Volume 92.5 fl (80-100); Mean Platelet Volume 8.7 fl (7.4-10.4); Platelet Count Result 225 k/mm3 (150-375); Red Blood Count 3.99 M/mm3 (4.2-5.4); Red Cell Distribution Width 14.6 % (11.5-14.5); White Blood Count 7.3 K/mm3 (4.5-10.0)
[2021-03-24 07:10] LABS: Alanine Aminotransferase 133 U/L (4-35); Albumin Level 3.6 g/dL (3.5-5.1); Alkaline Phosphatase 86 U/L (38-126); Anion Gap 6 mmol/L (8-16); Aspartate Amino Transferase 180 U/L (14-36); Bilirubin,Total 0.6 mg/dL (0.2-1.3); Blood Urea Nitrogen 7 mg/dL (7-17); Calcium 9.1 mg/dL (8.4-10.2); Carbon Dioxide 30 mmol/L (22-30); Chloride 104 mmol/L (98-107); Estimated CRCL calculation 62 ml/min; Estimated Glomerular Filt Rate > 60; Glucose 113 mg/dL (65-105); Potassium 3.2 mmol/L (3.4-5.0); Sodium 140 mmol/L (137-145)
[2021-03-24 07:19] LABS: Creatine Kinase 2598 U/L (30-135)
[2021-03-24] MEDS: DULoxetine HCL 60 MG CAPSULE.DR PO ×2 (12:30→20:00)
[2021-03-24] MEDS: clonazePAM (*CRX) 0.5 MG TABLET 2 MG PO ×2 (12:31→19:58)
[2021-03-24] MEDS: lamoTRIgine 100 MG TABLET PO ×2 (12:31→19:59)
[2021-03-24] MEDS: LITHIUM CARBONATE 300 MG CAPSULE PO ×2 (12:31→20:16)
[2021-03-24] MEDS: lamoTRIgine 25 MG TABLET 50 MG PO ×2 (12:32→19:59)
[2021-03-24] MEDS: valACYclovir HCL 500 MG TABLET 1000 MG PO (12:32)
[2021-03-24] MEDS: PANTOPRAZOLE 40 MG TABLET PO ×2 (12:32→20:00)
[2021-03-24] MEDS: ENOXAPARIN 40 MG/0.4 ML SYRINGE SUB-Q (12:33)
[2021-03-24 13:18] LABS: Add Urine Microscopic? YES; Appearance Urine Cloudy (Clear); Bilirubin Urine Negative (Negative); Blood Urine 1+ (Negative); Color Urine Yellow (Yellow); Glucose Urine UA Negative (Negative); Ketones Urine Negative (Negative); Leukocyte Esterase Ur 3+ LEU/UL (Negative); Nitrate Urine Negative (Negative); Protein Urine 1+ mg/dL (Negative); RBC Urine 0-2 /hpf (0-2); Specific Grav Ur 1.006 (1.001-1.035); Squamous Epithelial Cell Urine Occasional /hpf (Few); Urobilinogen Urine Negative mg/dL (<2.0); WBC Urine >75 /hpf
[2021-03-24] MEDS: OLANZapine 2.5 MG TABLET PO (19:59)
[2021-03-24] MEDS: traZODone HCL 50 MG TABLET 150 MG PO (20:00)
[2021-03-24] MEDS: TOLNAFTATE 1% POWDER 45 GM BTL 1 APPLIC TOPICAL (20:38)
[2021-03-25] VITALS: BP 131/49; PULSE 93; PULSE 96; RESP 27; O2SAT 96
[2021-03-25 04:00] VITALS: BP 103/45; PULSE 85; PULSE 88; RESP 18; TEMP 37.5; O2SAT 96
[2021-03-25 04:27] LABS: Hematocrit 36.3 % (37.0-47.0); Hemoglobin 11.2 g/dL (12.0-15.0); Mean Corpuscular HGB Conc 30.9 g/dl (32-36); Mean Corpuscular Hemoglobin 29.6 pg (26-34); Mean Corpuscular Volume 95.8 fl (80-100); Mean Platelet Volume 8.7 fl (7.4-10.4); Platelet Count Result 189 k/mm3 (150-375); Red Blood Count 3.79 M/mm3 (4.2-5.4); White Blood Count 6.4 K/mm3 (4.5-10.0)
[2021-03-25 04:40] LABS: Alanine Aminotransferase 111 U/L (4-35); Albumin Level 3.2 g/dL (3.5-5.1); Alkaline Phosphatase 73 U/L (38-126); Anion Gap 6 mmol/L (8-16); Aspartate Amino Transferase 116 U/L (14-36); Bilirubin,Total 0.4 mg/dL (0.2-1.3); Blood Urea Nitrogen 8 mg/dL (7-17); Carbon Dioxide 26 mmol/L (22-30); Chloride 109 mmol/L (98-107); Creatine Kinase 991 U/L (30-135); Estimated CRCL calculation 60 ml/min; Estimated Glomerular Filt Rate > 60; Glucose 114 mg/dL (65-105); Potassium 3.6 mmol/L (3.4-5.0); Sodium 141 mmol/L (137-145)
[2021-03-25] MEDS: SODIUM CHLORIDE 0.9% IV 1,000 ML 75 ML IV CONT (06:40)
[2021-03-25] MEDS: LEVOTHYROXINE SODIUM 50 MCG TABLET PO (07:01)
[2021-03-25 08:00] VITALS: BP 92/44; PULSE 85; RESP 23; TEMP 36.6; O2SAT 93
--- NOTE | 2021-03-25 09:10 | PM.IMPN ---
Progress Note: A&P Assessment and Plan (1) Altered mental status: Code(s): R41.82 - Altered mental status, unspecified Status: Acute Assessment and Plan: toxic metabolic encephaolpathy likely due to dehydration, rhabdomyolysis, - Pt still confused. - not suicidal or homicidal at this time -continue lamotrigine, lithium, olanzapine, clonazepam, duloxetine (2) Rhabdomyolysis: Code(s): M62.82 - Rhabdomyolysis Status: Acute Assessment and Plan: Adequate urine output, renal function stable -will give additional IV fluids -CK levels trending down -urine output has been adequate -continue to monitor (3) Transaminitis: Code(s): R74.01 - Elevation of levels of liver transaminase levels Status: Acute Assessment and Plan: Improving -right upper quadrant ultrasound was unremarkable -hepatitis panel was negative (4) Bipolar disorder with psychotic features: Code(s): F31.9 - Bipolar disorder, unspecified Status: Acute Assessment and Plan: Continue medications as above (5) DVT prophylaxis: Code(s): Z29.9 - Encounter for prophylactic measures, unspecified Status: Acute Assessment and Plan: Enoxaparin (6) UTI (urinary tract infection): Code(s): N39.0 - Urinary tract infection, site not specified Status: Acute Assessment and Plan: UA reflective of UTI, patient on ceftriaxone -urine cultures pending Additional Plan Code status: Full code -will increase rate of IV fluids to 100 mL/hour Subjective Date/time seen: 03/25/21 09:10 Interval history: 03/25/2021: Pt seen and examined. Pt remains confused, does not know where she is or the year though She knew the President. Denies any chest pain, SOB, N/V. States she is not hungry. Does not know why she is here. Denies any suicidal or homicidal thoughts Review of Systems Review of Systems: All systems reviewed & are unremarkable except as noted in HPI and below ROS unobtainable: Yes unobtainable due to mental status Exam Const: General: comfortable and no acute distress HENMT: Mouth: Yes moist mucous membranes Eyes: Sclera: sclerae normal Pupils: Equal, round and reactive pupils present Neck: Neck: supple Resp: Effort & Inspection: normal respiratory effort Auscultation: clear to auscultation bilaterally Cardio: Rate: regular rate Rhythm: regular rhythm GI: Inspection: non-distended GI Palp: Yes Soft to palpation and No Tenderness to palpation present (GI) Auscultation: normal bowel sounds Urinary Catheter: Urinary Catheter: urine clear Skin: Other: multiple bruises on face, arm, shoulder Neuro: Other: awake, alert, oriented to only knowing the name of the President. Follows simple commands in all extremities Extrem: General: normal to inspection, no edema and no pedal edema Psych: Other: confused Objective Data Vital Signs Vital Signs: Vital Signs - 24 hr 03/24/21 12:00 03/24/21 13:00 03/24/21 14:00 Temperature 97.5 F L 97.1 F L Pulse Rate 96 55 L 100 Respiratory Rate 14 16 Blood Pressure 114/46 L 139/55 L Pulse Oximetry 95 97 03/24/21 16:00 03/24/21 20:00 03/24/21 20:45 Temperature 97.2 F L 98.9 F Pulse Rate 97 93 Respiratory Rate 24 H 24 H Blood Pressure 128/71 127/57 L Pulse Oximetry 96 97 96 03/25/21 00:00 03/25/21 04:00 Temperature 99.5 F Pulse Rate 96 88 Respiratory Rate 27 H 18 Blood Pressure 131/49 L 103/45 L Pulse Oximetry 96 96 Intake/Output Intake/Output: Intake & Output 03/22/21 03/23/21 03/24/21 03/25/21 23:59 23:59 23:59 23:59 Intake Total 2700 2700 1270 Output Total 6750 1800 1600 Balance -4050 900 1270 -1600 Meds/Results Medications: Active Medications Generic Name Dose Route Start Last Admin Trade Name Freq PRN Reason Stop Dose Admin Acetaminophen 650 mg 03/19/21 09:33 03/22/21 20:51 Acetaminophen 325 Mg Tablet PO 650 mg Q4H PRN Administration Mild Pain (1-
[2021-03-25] MEDS: clonazePAM (*CRX) 0.5 MG TABLET 2 MG PO ×2 (09:51→20:27)
[2021-03-25] MEDS: SODIUM CHLORIDE 0.9% IV 1,000 ML 999 ML IV CONT (09:51)
[2021-03-25] MEDS: lamoTRIgine 100 MG TABLET PO ×2 (09:52→20:28)
[2021-03-25] MEDS: lamoTRIgine 25 MG TABLET 50 MG PO ×2 (09:52→20:28)
[2021-03-25] MEDS: TOLNAFTATE 1% POWDER 45 GM BTL 1 APPLIC TOPICAL ×2 (09:52→20:29)
[2021-03-25] MEDS: ENOXAPARIN 40 MG/0.4 ML SYRINGE SUB-Q (09:52)
[2021-03-25] MEDS: valACYclovir HCL 500 MG TABLET 1000 MG PO (09:52)
[2021-03-25] MEDS: LITHIUM CARBONATE 300 MG CAPSULE PO ×2 (09:53→20:28)
[2021-03-25] MEDS: DULoxetine HCL 60 MG CAPSULE.DR PO ×2 (09:53→20:28)
[2021-03-25] MEDS: PANTOPRAZOLE 40 MG TABLET PO ×2 (09:53→20:28)
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
[2021-03-25 16:00] VITALS: BP 140/73; PULSE 113; RESP 22; TEMP 36.4; O2SAT 97
[2021-03-25] MEDS: OLANZapine 2.5 MG TABLET PO (20:27)
[2021-03-25] MEDS: traZODone HCL 50 MG TABLET 150 MG PO (20:28)
[2021-03-25 23:08] VITALS: O2SAT 96
[2021-03-25 23:40] VITALS: BP 142/53; PULSE 96; RESP 22; TEMP 36.6; O2SAT 95
[2021-03-25] MEDS: SODIUM CHLORIDE 0.9% IV 1,000 ML 100 ML IV CONT (23:43)
[2021-03-26 04:15] LABS: Hematocrit 37.7 % (37.0-47.0); Mean Corpuscular HGB Conc 29.2 g/dl (32-36); Mean Corpuscular Hemoglobin 29.8 pg (26-34); Mean Corpuscular Volume 102.2 fl (80-100); Mean Platelet Volume 9.1 fl (7.4-10.4); Platelet Count Result 145 k/mm3 (150-375); Red Blood Count 3.69 M/mm3 (4.2-5.4); Red Cell Distribution Width 15.3 % (11.5-14.5); White Blood Count 4.6 K/mm3 (4.5-10.0)
[2021-03-26 04:24] LABS: Alanine Aminotransferase 80 U/L (4-35); Albumin Level 3.3 g/dL (3.5-5.1); Alkaline Phosphatase 69 U/L (38-126); Anion Gap 6 mmol/L (8-16); Aspartate Amino Transferase 60 U/L (14-36); Bilirubin,Total 0.4 mg/dL (0.2-1.3); Blood Urea Nitrogen 9 mg/dL (7-17); Calcium 8.6 mg/dL (8.4-10.2); Carbon Dioxide 23 mmol/L (22-30); Chloride 109 mmol/L (98-107); Creatine Kinase 683 U/L (30-135); Estimated CRCL calculation 61 ml/min; Estimated Glomerular Filt Rate > 60; Glucose 99 mg/dL (65-105); Potassium 3.8 mmol/L (3.4-5.0); Sodium 138 mmol/L (137-145)
[2021-03-26] MEDS: LEVOTHYROXINE SODIUM 50 MCG TABLET PO (05:46)
[2021-03-26 07:37] VITALS: O2SAT 96
[2021-03-26 08:00] VITALS: BP 124/66; PULSE 100; RESP 22; TEMP 36.6; O2SAT 97
--- NOTE | 2021-03-26 08:28 | PM.IMPN ---
Progress Note: A&P Assessment and Plan (1) Altered mental status: Code(s): R41.82 - Altered mental status, unspecified Status: Acute Assessment and Plan: toxic metabolic encephaolpathy likely due to dehydration, rhabdomyolysis, UTI -more awake this morning and conversant but remains confused and disoriented - not suicidal or homicidal at this time, can discontinue suicidal precautions -continue lamotrigine, lithium, olanzapine, clonazepam, duloxetine (2) Rhabdomyolysis: Code(s): M62.82 - Rhabdomyolysis Status: Acute Assessment and Plan: Adequate urine output, renal function stable -CK levels trending down -urine output has been adequate -continue to monitor - decreased maintenance IV fluids to 75 mL/hour (3) Transaminitis: Code(s): R74.01 - Elevation of levels of liver transaminase levels Status: Acute Assessment and Plan: Improving -right upper quadrant ultrasound was unremarkable -hepatitis panel was negative (4) Bipolar disorder with psychotic features: Code(s): F31.9 - Bipolar disorder, unspecified Status: Acute Assessment and Plan: Continue medications as above (5) DVT prophylaxis: Code(s): Z29.9 - Encounter for prophylactic measures, unspecified Status: Acute Assessment and Plan: Enoxaparin (6) UTI (urinary tract infection): Code(s): N39.0 - Urinary tract infection, site not specified Status: Acute Assessment and Plan: UA reflective of UTI, patient on ceftriaxone -urine cultures pending Additional Plan Code status: Full code -discontinue suicide precautions -okay to transfer to medical floor Subjective Date/time seen: 03/26/21 08:28 Interval history: 03/26/2021: Pt seen and examined for the hospitalist group. Pt remains confused, does not know where she is or the year though She knew the President. Denies any chest pain, SOB, abdominal pain, N/V. States she is not hungry, she states she has phases when she is hungry and when she is not. Renal function is within normal limits, creatinine currently is trending down, LFTs improving. Patient more awake this morning. Denies any suicidal or homicidal thoughts. Review of Systems Review of Systems: All systems reviewed & are unremarkable except as noted in HPI and below ROS unobtainable: Yes unobtainable due to mental status Exam Const: General: comfortable and no acute distress HENMT: Mouth: Yes moist mucous membranes Eyes: Sclera: sclerae normal Pupils: Equal, round and reactive pupils present Neck: Neck: supple Resp: Effort & Inspection: normal respiratory effort Auscultation: clear to auscultation bilaterally Cardio: Rate: regular rate Rhythm: regular rhythm GI: Inspection: non-distended GI Palp: Yes Soft to palpation and No Tenderness to palpation present (GI) Auscultation: normal bowel sounds Urinary Catheter: Urinary Catheter: urine clear Skin: Other: multiple bruises on face, arm, shoulder Neuro: Cranial nerves: Yes Equal, round and reactive pupils present Other: awake, alert, oriented to only knowing the name of the President. Follows simple commands in all extremities Extrem: General: normal to inspection, no edema and no pedal edema Psych: Other: confused Objective Data Vital Signs Vital Signs: Vital Signs - 24 hr 03/25/21 16:00 03/25/21 23:08 03/25/21 23:40 Temperature 97.5 F L 98 F Pulse Rate 113 H 96 Respiratory Rate 22 H 22 H Blood Pressure 140/73 142/53 H Pulse Oximetry 97 96 95 03/26/21 07:37 Temperature Pulse Rate Respiratory Rate Blood Pressure Pulse Oximetry 96 Intake/Output Intake/Output: Intake & Output 03/23/21 03/24/21 03/25/21 03/26/21 23:59 23:59 23:59 23:59 Intake Total 2700 1270 2490 240 Output Total 1800 2200 Balance 900 1270 290 240 Meds/Results Medications: Active Medications Generic Name Dose Route Start Last Admin Trade Name Freq PRN Reason Sto
--- NOTE | 2021-03-26 09:29 | PCOTNOTE ---
Per RN, patient is ok to continue OT treatments at this time. Will complete re-assess today.
[2021-03-26 09:30] VITALS: BMI 10.0
[2021-03-26] MEDS: SODIUM CHLORIDE 0.9% IV 1,000 ML 100 ML IV CONT (09:59)
[2021-03-26] MEDS: valACYclovir HCL 500 MG TABLET 1000 MG PO (10:00)
[2021-03-26] MEDS: ENOXAPARIN 40 MG/0.4 ML SYRINGE SUB-Q (10:00)
[2021-03-26] MEDS: clonazePAM (*CRX) 0.5 MG TABLET 2 MG PO ×2 (10:01→20:10)
[2021-03-26] MEDS: lamoTRIgine 100 MG TABLET PO ×2 (10:04→20:21)
[2021-03-26] MEDS: DULoxetine HCL 60 MG CAPSULE.DR PO ×2 (10:04→20:21)
[2021-03-26] MEDS: lamoTRIgine 25 MG TABLET 50 MG PO ×2 (10:06→20:21)
[2021-03-26] MEDS: LITHIUM CARBONATE 300 MG CAPSULE PO ×2 (10:07→20:21)
[2021-03-26] MEDS: PANTOPRAZOLE 40 MG TABLET PO ×2 (10:07→20:22)
[2021-03-26] MEDS: TOLNAFTATE 1% POWDER 45 GM BTL 1 APPLIC TOPICAL ×2 (10:08→20:20)
[2021-03-26] MEDS: ACETAMINOPHEN 325 MG TABLET 650 MG PO (10:08)
[2021-03-26] MEDS: HALOPERIDOL LACTATE 5 MG/ML VIAL 2 MG IV PUSH (13:21)
[2021-03-26 16:00] VITALS: BP 126/45; PULSE 82; RESP 17; TEMP 36.4; O2SAT 97
[2021-03-26 20:00] VITALS: PULSE 87; RESP 16; O2SAT 96
[2021-03-26] MEDS: traZODone HCL 50 MG TABLET 150 MG PO (20:12)
[2021-03-26] MEDS: OLANZapine 2.5 MG TABLET PO (20:21)
[2021-03-27] VITALS: BP 140/61; PULSE 93; RESP 20; TEMP 36.6; O2SAT 94
[2021-03-27] MEDS: SODIUM CHLORIDE 0.9% IV 1,000 ML 75 ML IV CONT ×2 (01:03→13:07)
[2021-03-27 04:50] LABS: Hematocrit 34.7 % (37.0-47.0); Hemoglobin 11.1 g/dL (12.0-15.0); Mean Corpuscular Hemoglobin 30.2 pg (26-34); Mean Corpuscular Volume 94.3 fl (80-100); Mean Platelet Volume 8.8 fl (7.4-10.4); Platelet Count Result 168 k/mm3 (150-375); Red Blood Count 3.68 M/mm3 (4.2-5.4); Red Cell Distribution Width 14.8 % (11.5-14.5); White Blood Count 4.3 K/mm3 (4.5-10.0)
[2021-03-27 05:01] LABS: Alanine Aminotransferase 65 U/L (4-35); Albumin Level 3.5 g/dL (3.5-5.1); Alkaline Phosphatase 74 U/L (38-126); Anion Gap 7 mmol/L (8-16); Aspartate Amino Transferase 44 U/L (14-36); Bilirubin,Total 0.3 mg/dL (0.2-1.3); Blood Urea Nitrogen 10 mg/dL (7-17); Calcium 8.9 mg/dL (8.4-10.2); Carbon Dioxide 24 mmol/L (22-30); Chloride 110 mmol/L (98-107); Creatine Kinase 436 U/L (30-135); Estimated CRCL calculation 61 ml/min; Estimated Glomerular Filt Rate > 60; Glucose 116 mg/dL (65-105); Potassium 3.5 mmol/L (3.4-5.0); Sodium 141 mmol/L (137-145)
[2021-03-27] MEDS: LEVOTHYROXINE SODIUM 50 MCG TABLET PO (06:04)
[2021-03-27] MEDS: ENOXAPARIN 40 MG/0.4 ML SYRINGE SUB-Q (07:30)
[2021-03-27] MEDS: DULoxetine HCL 60 MG CAPSULE.DR PO ×2 (07:31→21:12)
[2021-03-27] MEDS: PANTOPRAZOLE 40 MG TABLET PO ×2 (07:31→21:13)
[2021-03-27] MEDS: TOLNAFTATE 1% POWDER 45 GM BTL 1 APPLIC TOPICAL ×2 (07:31→20:57)
[2021-03-27] MEDS: valACYclovir HCL 500 MG TABLET 1000 MG PO (07:31)
[2021-03-27] MEDS: lamoTRIgine 25 MG TABLET 50 MG PO ×2 (07:31→21:11)
[2021-03-27] MEDS: lamoTRIgine 100 MG TABLET PO ×2 (07:31→21:12)
[2021-03-27] MEDS: LITHIUM CARBONATE 300 MG CAPSULE PO ×2 (07:31→21:12)
[2021-03-27] MEDS: clonazePAM (*CRX) 0.5 MG TABLET 2 MG PO ×2 (07:52→20:55)
[2021-03-27 08:00] VITALS: BP 138/61; PULSE 96; RESP 18; TEMP 36.6; O2SAT 93
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
[2021-03-27 10:43] VITALS: BMI 29.1
[2021-03-27 16:00] VITALS: BP 136/59; PULSE 94; RESP 23; TEMP 36.9; O2SAT 94
[2021-03-27 20:00] VITALS: PULSE 94; RESP 26; O2SAT 95
[2021-03-27] MEDS: OLANZapine 2.5 MG TABLET PO (21:13)
[2021-03-27] MEDS: traZODone HCL 50 MG TABLET 150 MG PO (21:13)
[2021-03-28] VITALS: BP 149/77; PULSE 92; RESP 22; TEMP 37.2; O2SAT 94
[2021-03-28] MEDS: SODIUM CHLORIDE 0.9% IV 1,000 ML 75 ML IV CONT (03:22)
[2021-03-28 04:55] LABS: Hematocrit 35.6 % (37.0-47.0); Hemoglobin 11.3 g/dL (12.0-15.0); Mean Corpuscular HGB Conc 31.7 g/dl (32-36); Mean Corpuscular Hemoglobin 29.1 pg (26-34); Mean Corpuscular Volume 91.8 fl (80-100); Platelet Count Result 180 k/mm3 (150-375); Red Blood Count 3.88 M/mm3 (4.2-5.4); Red Cell Distribution Width 14.6 % (11.5-14.5); White Blood Count 5.2 K/mm3 (4.5-10.0)
[2021-03-28 05:07] LABS: Alanine Aminotransferase 48 U/L (4-35); Albumin Level 3.4 g/dL (3.5-5.1); Alkaline Phosphatase 75 U/L (38-126); Anion Gap 7 mmol/L (8-16); Aspartate Amino Transferase 33 U/L (14-36); Bilirubin,Total 0.4 mg/dL (0.2-1.3); Blood Urea Nitrogen 9 mg/dL (7-17); Carbon Dioxide 25 mmol/L (22-30); Chloride 106 mmol/L (98-107); Creatine Kinase 196 U/L (30-135); Estimated CRCL calculation 54 ml/min; Estimated Glomerular Filt Rate > 60; Glucose 109 mg/dL (65-105); Potassium 3.2 mmol/L (3.4-5.0); Sodium 138 mmol/L (137-145)
[2021-03-28 05:15] LABS: Lithium 0.3 mmol/L (0.6-1.2)
[2021-03-28] MEDS: LEVOTHYROXINE SODIUM 50 MCG TABLET PO (05:29)
[2021-03-28 08:00] VITALS: BP 109/50; PULSE 84; RESP 22; TEMP 36.8; O2SAT 93
[2021-03-28] MEDS: ENOXAPARIN 40 MG/0.4 ML SYRINGE SUB-Q (09:17)
[2021-03-28] MEDS: TOLNAFTATE 1% POWDER 45 GM BTL 1 APPLIC TOPICAL ×2 (09:17→21:18)
[2021-03-28] MEDS: clonazePAM (*CRX) 0.5 MG TABLET 2 MG PO ×2 (11:34→21:16)
[2021-03-28] MEDS: lamoTRIgine 100 MG TABLET PO ×2 (11:35→21:17)
[2021-03-28] MEDS: DULoxetine HCL 60 MG CAPSULE.DR PO ×2 (11:35→21:16)
[2021-03-28] MEDS: lamoTRIgine 25 MG TABLET 50 MG PO ×2 (11:35→21:16)
[2021-03-28] MEDS: LITHIUM CARBONATE 300 MG CAPSULE PO ×2 (11:36→21:17)
[2021-03-28] MEDS: PANTOPRAZOLE 40 MG TABLET PO ×2 (11:36→21:17)
[2021-03-28] MEDS: valACYclovir HCL 500 MG TABLET 1000 MG PO (11:36)
--- NOTE | 2021-03-28 13:00 | PM.IMPN ---
Progress Note: A&P Assessment and Plan (1) UTI (urinary tract infection): Code(s): N39.0 - Urinary tract infection, site not specified Status: Acute Assessment and Plan: IV Rocephin (2) Rhabdomyolysis: Code(s): M62.82 - Rhabdomyolysis Status: Acute Assessment and Plan: Physical therapy Monitor CK level Monitor renal function and electrolytes Replace potassium and check magnesium (3) Altered mental status: Code(s): R41.82 - Altered mental status, unspecified Status: Acute Assessment and Plan: Monitor mental status Subjective Date/time seen: 03/28/21 13:00 Patient still complains of generalized weakness, no pain, mild confusion. Exam Const: General: cooperative and no acute distress HENMT: Head: normal to inspection Eyes: General: appearance normal, both eyes and all related structures Neck: Neck: normal visual inspection Chest: Chest palpation & inspection: normal inspection of the chest Resp: Effort & Inspection: normal respiratory effort Cardio: Jugular venous distension: no JVD Rate: regular rate GI: Inspection: normal to inspection and non-distended Objective Data Vital Signs Vital Signs: Vital Signs - 24 hr 03/27/21 16:00 03/27/21 20:00 03/28/21 00:00 Temperature 98.5 F 99 F Pulse Rate 94 94 92 Respiratory Rate 23 H 26 H 22 H Blood Pressure 136/59 L 149/77 H Pulse Oximetry 94 95 94 03/28/21 08:00 Temperature 98.2 F Pulse Rate 84 Respiratory Rate 22 H Blood Pressure 109/50 L Pulse Oximetry 93 Intake/Output Intake/Output: Intake & Output 03/25/21 03/26/21 03/27/21 03/28/21 23:59 23:59 23:59 23:59 Intake Total 2490 2770 1200 1250 Output Total 2200 1800 1000 Balance 290 2770 -600 250 Meds/Results Medications: Active Medications Generic Name Dose Route Start Last Admin Trade Name Freq PRN Reason Stop Dose Admin Acetaminophen 650 mg 03/19/21 09:33 03/26/21 10:08 Acetaminophen 325 Mg Tablet PO 650 mg Q4H PRN Administration Mild Pain (1-3) or Fever Clonazepam 2 mg 03/19/21 20:00 03/28/21 11:34 Clonazepam (*Crx) 0.5 Mg Tablet PO 2 mg Q12HR QUITA Administration Duloxetine HCl 60 mg 03/19/21 21:00 03/28/21 11:35 Duloxetine Hcl 60 Mg Capsule.Dr PO 60 mg Q12HR QUITA Administration Enoxaparin Sodium 40 mg 03/22/21 09:00 03/28/21 09:17 Enoxaparin 40 Mg/0.4 Ml Syringe SUB-Q 40 mg DAILY QUITA Administration Sodium Chloride 1,000 mls @ 75 mls/hr 03/23/21 10:55 03/28/21 03:22 Normal Saline Iv IV CONT 75 mls/hr .[id number] QUITA Administration Ceftriaxone Sodium/Dextrose 1 gm in 50 mls @ 100 mls/hr 03/24/21 14:00 03/27/21 14:30 Rocephin 1 Gm/D5w 50 Ml IVPB Infused Q24H QUITA Infusion Lamotrigine 50 mg 03/19/21 21:00 03/28/21 11:35 Lamotrigine 25 Mg Tablet PO 50 mg Q12HR QUITA Administration Lamotrigine 100 mg 03/19/21 21:00 03/28/21 11:35 Lamotrigine 100 Mg Tablet PO 100 mg Q12HR QUITA Administration Levothyroxine Sodium 50 mcg 03/20/21 06:30 03/28/21 05:29 Levothyroxine Sodium 50 Mcg Tablet PO 50 mcg DAILY@0630 QUITA Administration [place] Carbonate 300 mg 03/19/21 21:00 03/28/21 11:36 [place] Carbonate 300 Mg Capsule PO 300 mg Q12HR QUITA Administration Olanzapine 2.5 mg 03/23/21 21:00 03/27/21 21:13 Olanzapine 2.5 Mg Tablet PO 2.5 mg HS QUITA Administration Pantoprazole Sodium 40 mg 03/19/21 21:00 03/28/21 11:36 Pantoprazole 40 Mg Tablet PO 40 mg Q12HR QUITA Administration Tolnaftate 1 applic 03/20/21 11:30 03/28/21 09:17 Tolnaftate 1% Powder 45 Gm Btl TOPICAL 1 applic Q12HR QUITA Administration Trazodone HCl 150 mg 03/19/21 21:00 03/27/21 21:13 Trazodone Hcl 50 Mg Tablet PO 150 mg HS QUITA Administration Valacyclovir HCl 1,000 mg 03/20/21 09:00 03/28/21 11:36 Valacyclovir Hcl 500 Mg Tablet PO 1,000 mg DAILY QUITA Administration Radiology Results: ITS Impression
[2021-03-28] MEDS: KCL 20 MEQ/D5/0.9% SOD CHL 1,000 ML 100 ML IV CONT (14:05)
[2021-03-28 16:00] VITALS: BP 110/46; PULSE 93; RESP 16; TEMP 37.3; O2SAT 93
[2021-03-28] MEDS: traZODone HCL 50 MG TABLET 150 MG PO (21:15)
[2021-03-28] MEDS: OLANZapine 2.5 MG TABLET PO (21:17)
[2021-03-29] VITALS: BP 142/57; PULSE 90; RESP 16; TEMP 36.9; O2SAT 94
[2021-03-29] MEDS: KCL 20 MEQ/D5/0.9% SOD CHL 1,000 ML 100 ML IV CONT (00:32)
[2021-03-29 04:30] LABS: Hematocrit 34.9 % (37.0-47.0); Mean Corpuscular HGB Conc 31.5 g/dl (32-36); Mean Corpuscular Hemoglobin 29.5 pg (26-34); Mean Corpuscular Volume 93.6 fl (80-100); Mean Platelet Volume 9.1 fl (7.4-10.4); Platelet Count Result 164 k/mm3 (150-375); Red Blood Count 3.73 M/mm3 (4.2-5.4); Red Cell Distribution Width 14.7 % (11.5-14.5); White Blood Count 4.3 K/mm3 (4.5-10.0)
[2021-03-29 04:41] LABS: INR 1.1; Prothrombin Time 14.3 Seconds (11.1-14.7)
[2021-03-29 04:42] LABS: Partial Thromboplastin Time 28.1 SECONDS (22.3-36.8)
[2021-03-29 04:44] LABS: Lactic Acid Reflex 1.2 mmol/L (0.7-2.1)
[2021-03-29 05:18] LABS: Alanine Aminotransferase 42 U/L (4-35); Albumin Level 3.3 g/dL (3.5-5.1); Alkaline Phosphatase 73 U/L (38-126); Anion Gap 7 mmol/L (8-16); Aspartate Amino Transferase 38 U/L (14-36); Bilirubin,Total 0.2 mg/dL (0.2-1.3); Blood Urea Nitrogen 7 mg/dL (7-17); Calcium 8.9 mg/dL (8.4-10.2); Carbon Dioxide 22 mmol/L (22-30); Chloride 112 mmol/L (98-107); Creatine Kinase 106 U/L (30-135); Estimated CRCL calculation 70 ml/min; Estimated Glomerular Filt Rate > 60; Glucose 124 mg/dL (65-105); Magnesium 2.1 mg/dL (1.6-2.3); Phosphorus 2.5 mg/dL (2.5-4.5); Potassium 3.7 mmol/L (3.4-5.0); Sodium 141 mmol/L (137-145)
[2021-03-29] MEDS: LEVOTHYROXINE SODIUM 50 MCG TABLET PO (06:03)
[2021-03-29 08:00] VITALS: BP 131/54; PULSE 95; RESP 26; TEMP 36.9; O2SAT 92
[2021-03-29] MEDS: valACYclovir HCL 500 MG TABLET 1000 MG PO (08:58)
[2021-03-29] MEDS: lamoTRIgine 25 MG TABLET 50 MG PO ×2 (08:58→19:43)
[2021-03-29] MEDS: TOLNAFTATE 1% POWDER 45 GM BTL 1 APPLIC TOPICAL ×2 (08:59→19:45)
[2021-03-29] MEDS: LITHIUM CARBONATE 300 MG CAPSULE PO ×2 (08:59→19:43)
[2021-03-29] MEDS: lamoTRIgine 100 MG TABLET PO ×2 (08:59→19:45)
[2021-03-29] MEDS: PANTOPRAZOLE 40 MG TABLET PO ×2 (08:59→19:44)
[2021-03-29] MEDS: ENOXAPARIN 40 MG/0.4 ML SYRINGE SUB-Q (08:59)
[2021-03-29] MEDS: DULoxetine HCL 60 MG CAPSULE.DR PO ×2 (08:59→19:45)
[2021-03-29] MEDS: clonazePAM (*CRX) 0.5 MG TABLET 2 MG PO ×2 (09:01→19:46)
--- NOTE | 2021-03-29 09:09 | PM.IMPN ---
Progress Note: A&P Assessment and Plan (1) Altered mental status: Code(s): R41.82 - Altered mental status, unspecified Status: Acute Assessment and Plan: toxic metabolic encephaolpathy likely due to dehydration, rhabdomyolysis, UTI -more awake this morning and conversant but remains confused and disoriented - not suicidal or homicidal at this time, -patient is medically stable, will have care coordination and crisis management evaluate the patient -continue lamotrigine, lithium, olanzapine, clonazepam, duloxetine (2) Rhabdomyolysis: Code(s): M62.82 - Rhabdomyolysis Status: Acute Assessment and Plan: RESOLVED Adequate urine output, renal function stable and within normal limits -CK levels normalized -urine output has been adequate -continue to monitor -decrease IV fluids to 50 mL/hour (3) Transaminitis: Code(s): R74.01 - Elevation of levels of liver transaminase levels Status: Acute Assessment and Plan: Improving -right upper quadrant ultrasound was unremarkable -hepatitis panel was negative (4) Bipolar disorder with psychotic features: Code(s): F31.9 - Bipolar disorder, unspecified Status: Acute Assessment and Plan: Continue medications as above (5) DVT prophylaxis: Code(s): Z29.9 - Encounter for prophylactic measures, unspecified Status: Acute Assessment and Plan: Enoxaparin (6) UTI (urinary tract infection): Code(s): N39.0 - Urinary tract infection, site not specified Status: Acute Assessment and Plan: UA reflective of UTI, patient on ceftriaxone -urine cultures growing coli, pansensitive, continue ceftriaxone (initiated on 03/24/2021) Additional Plan Code status: Full code -will have crisis management and care coordination evaluate the patient -patient is medically stable -if okay with crisis management patient may be able to go back to the medical floor Subjective Date/time seen: 03/29/21 09:09 Interval history: 03/29/2021: Pt seen and examined for the hospitalist group. Pt is awake, alert, confused, oriented only to the year, does not know where she is or who is the president. Patient denies any suicidal ideation/thoughts. Urine output has been adequate, patient is afebrile, hemodynamically stable. Complains of right lower extremity pain and abdominal pain, states she has irritable bowel syndrome. Patient's creatinine electrolytes are within normal limits, CK levels have normalized Review of Systems Review of Systems: All systems reviewed & are unremarkable except as noted in HPI and below Exam Const: General: comfortable and no acute distress HENMT: Mouth: Yes moist mucous membranes Eyes: Sclera: sclerae normal Pupils: Equal, round and reactive pupils present Neck: Neck: supple Resp: Effort & Inspection: normal respiratory effort Auscultation: clear to auscultation bilaterally Cardio: Rate: regular rate Rhythm: regular rhythm GI: Inspection: non-distended GI Palp: Yes Soft to palpation and No Tenderness to palpation present (GI) Auscultation: normal bowel sounds Urinary Catheter: Urinary Catheter: urine clear Skin: Other: multiple resolving bruises on face, arm, shoulder Neuro: Cranial nerves: Yes Equal, round and reactive pupils present Other: awake, alert, oriented only to the year. Otherwise she is confused Extrem: General: normal to inspection, no edema and no pedal edema Psych: Other: confused, withdrawn affect Objective Data Vital Signs Vital Signs: Vital Signs - 24 hr 03/28/21 16:00 03/29/21 00:00 03/29/21 08:00 Temperature 99.2 F 98.4 F 98.5 F Pulse Rate 93 90 95 Respiratory Rate 16 16 26 H Blood Pressure 110/46 L 142/57 H 131/54 L Pulse Oximetry 93 94 92 Intake/Output Intake/Output: Intake & Output 03/26/21 03/27/21 03/28/21 03/29/21 23:59 23:59 23:59 23:59 Intake Total 2770 1200 2170 1240 Output Total 1800 1500 Balance 2770 -600 670 12
[2021-03-29] MEDS: KCL 20 MEQ/D5/0.9% SOD CHL 1,000 ML 50 ML IV CONT (10:24)
--- NOTE | 2021-03-29 10:27 | PCDIET ---
Nutrition Follow-Up Complete: Nutrition Diagnosis: Inadequate oral intake related to poor appetite as evidenced by patient statements, documented 7% weight loss x 3-4 months and average intake of 30% of meals since admission. Nutrition Goal: Patient to consume 50% of meals/supplements or greater and maintain weight. Goal in progress. Overall intakes less than 50% since less review; however, patient did eat 50% of breakfast and took Ensure Enlive this morning. Patient reports appetite remains poor, but is trying to eat and does like the Ensure Enlive. Recommend continuing Enlive TID with meals. Could also consider change from heart healthy to regular diet to promote intake. Last recorded weight is 76.5 kg which is slightly down from last review. Bowel Motility: No documented BM as of yet. Labs Reviewed: RBC (4.3), Hgb (11.0), Hct (34.9), Glu (124), Cr (0.6), Alb (3.3), Cl (112) Meds Noted: Rocephin, Klonopin, Synthroid, Protonix, D5/NS with 20mEq KCl at 50mL/hr Additional Notes: Left elbow abrasion. Bruising above left eye. No other skin breakdown documented. Will continue to monitor with same goal. Nutrition Monitoring and Evaluation: Follow up every 3 days.
[2021-03-29 16:00] VITALS: BP 137/57; PULSE 99; RESP 26; TEMP 36.8; O2SAT 93
[2021-03-29] MEDS: OLANZapine 2.5 MG TABLET PO (19:44)
[2021-03-29] MEDS: traZODone HCL 50 MG TABLET 150 MG PO (19:44)
[2021-03-29 20:00] VITALS: O2SAT 95
[2021-03-30] VITALS: BP 140/76; PULSE 100; RESP 24; TEMP 37.1; O2SAT 95
[2021-03-30] MEDS: LEVOTHYROXINE SODIUM 50 MCG TABLET PO (05:36)
[2021-03-30] MEDS: KCL 20 MEQ/D5/0.9% SOD CHL 1,000 ML 50 ML IV CONT (05:36)
[2021-03-30 05:41] VITALS: BP 148/82
[2021-03-30 07:50] VITALS: BP 123/72; PULSE 85; RESP 12; TEMP 36.7; O2SAT 94
[2021-03-30] MEDS: valACYclovir HCL 500 MG TABLET 1000 MG PO (09:20)
[2021-03-30] MEDS: lamoTRIgine 25 MG TABLET 50 MG PO (09:20)
[2021-03-30] MEDS: TOLNAFTATE 1% POWDER 45 GM BTL 1 APPLIC TOPICAL (09:20)
[2021-03-30] MEDS: ENOXAPARIN 40 MG/0.4 ML SYRINGE SUB-Q (09:20)
[2021-03-30] MEDS: PANTOPRAZOLE 40 MG TABLET PO (09:20)
[2021-03-30] MEDS: DULoxetine HCL 60 MG CAPSULE.DR PO (09:20)
[2021-03-30] MEDS: lamoTRIgine 100 MG TABLET PO (09:21)
[2021-03-30] MEDS: LITHIUM CARBONATE 300 MG CAPSULE PO (09:21)
[2021-03-30] MEDS: clonazePAM (*CRX) 0.5 MG TABLET 2 MG PO (09:29)
--- NOTE | 2021-03-30 10:37 | PC.NURSE ---
Report called to KATI Reilly at [facility].
--- NOTE | 2021-03-30 11:30 | PC.NURSE ---
Patient agitated,straight cath x1.
--- NOTE | 2021-03-30 12:05 | PM.DS ---
DS: Admitting Diagnosis Admitting Diagnosis Admitting Diagnosis: Altered mental status Rhabdomyolysis DS: Discharge Diagnosis Discharge Diagnosis (1) UTI (urinary tract infection): Code(s): N39.0 - Urinary tract infection, site not specified Status: Acute (2) Rhabdomyolysis: Code(s): M62.82 - Rhabdomyolysis Status: Acute (3) Altered mental status: Code(s): R41.82 - Altered mental status, unspecified Status: Acute (4) Bipolar disorder with psychotic features: Code(s): F31.9 - Bipolar disorder, unspecified Status: Acute DS: Summary Hospital Course Reason for hospitalization: Altered mental status Hospital Course: This is a 75-year-old female who presented to the emergency department via EMS from home for evaluation of altered mental status. She was alert though she is not able to provide me with an accurate history and as such a majority of the following is obtained via a review of her electronic medical records as well as discussions with staff. According to the EMR, her medical history is significant for bipolar disorder with psychotic features, hypertension, and hypothyroidism. The patient was reportedly found lying outside of her apartment building, wearing only a T-shirt. On EMS arrival she was noted to have scattered bruising in different stages on her extremities and face. She tells a bizarre and sometimes contradictory story. Patient had elevated CK level, consistent with rhabdomyolysis, that improved with IV fluids. CT head was unremarkable Patient was treated with IV antibiotic for UTI during this hospitalization. Patient does not have any family available, wild animal caretaker discussed the case with her friends who are taking care of the patient, plan to discharge patient to residential facility and rehab, patient still have generalized weakness, no focal deficit. Patient is stable to be discharged to rehab today. Time Spent with Patient Time attestation: Total time spent providing and/or coordinating discharge services: Time spent: Greater than 30 minutes Discharge Plan Discharge Discharging Clinician: Sebastian Walker Patient Disposition: SNF Activity: as tolerated Diet: regular Stand Alone Forms: General Discharge Information Follow-up/Referrals: Rigo Severino MD [Primary Care Provider] - 1 Week Discharge Medications: New enoxaparin [Lovenox] 40 mg/0.4 mL Syringe 40 mg subcut DAILY 15 Days Qty: 6 RF: 0 tolnaftate 1 % Powder 1 applic topical Q12HR 7 Days RF: 0 Continued duloxetine 60 mg capsule,delayed release(DR/EC) 60 mg PO BID RF: 0 levothyroxine 50 mcg tablet 50 mcg PO DAILY RF: 0 trazodone 150 mg tablet 150 mg PO HS RF: 0 valacyclovir 1 gram tablet 1,000 mg PO DAILY RF: 0 omeprazole 40 mg capsule,delayed release(DR/EC) 40 mg PO DAILY Qty: 90 RF: 3 lithium carbonate 300 mg capsule 300 mg PO BID Qty: 180 RF: 3 clonazepam 2 mg tablet 2 mg PO Q12H Qty: 180 RF: 3 lamotrigine [Lamictal] 150 mg tablet 150 mg PO BID Qty: 180 RF: 0 Date of admission: 03/19/21 10:06 Primary Care Provider: Rigo Severino Admitting Provider: Herbert Padilla Attending physician on admission: Sebastian Walker Condition: Stable Quality VTE Prophylaxis VTE prophylaxis: mechanical ordered
--- NOTE | 2021-03-30 13:50 | PC.NURSE ---
Updated Sheree, INSOLE ROUNDER at SNF about discharge plsn. YESSENIA faxed to facility per die operator request.
== END 2021-03-30 14:36 | DRG 558 ==
LOC: ANHED 06:57 → ANHIMU 18:35 → ANHICU 03-28 07:23 → ANH3MEDSUR 03-31 15:03 → ANHICU 03-31 15:03 → ANHIMU 03-31 15:03
PROVIDERS: Emergency Medicine; Family Medicine; Internal Medicine; Admitting Provider Internal Medicine; Emergency Provider Emergency Medicine; PCP Family Medicine; Visit Provider Physician Assistant
DX: M62.82 Rhabdomyolysis (principal); N39.0 Urinary tract infection, site not specified; R41.82 Altered mental status, unspecified; R45.1 Restlessness and agitation; F31.9 Bipolar disorder, unspecified; F41.8 Other specified anxiety disorders; F60.5 Obsessive-compulsive personality disorder; I10 Essential (primary) hypertension; E03.9 Hypothyroidism, unspecified; K21.9 Gastro-esophageal reflux disease without esophagitis; R74.01 Elevation of levels of liver transaminase levels; R77.8 Other specified abnormalities of plasma proteins; Z79.899 Other long term (current) drug therapy; Z87.891 Personal history of nicotine dependence; Z98.49 Cataract extraction status, unspecified eye
CPT/HCPCS: 36415; 51701; 70450; 71045; 76705; 80048; 80053; 80074; 80178; 80307; 81001; 82550; 82948; 83605; 83735; 84100; 84443; 84484; 85025; 85027; 85610; 85730; 87077; 87086; 87088; 87186; 93005; 96360; 97110; 97161; 97165; 97530; 97535; 99285; A9270; G0378; J0696; J1630; J1650; J3480; J7030; J7120

== ENCOUNTER 2021-04-03 11:43 | Inpatient (IN) | payer MEDICARE, SELFPAY ==
[2021-04-03] VITALS (20 sets, daily range): BP systolic 120–149; BP diastolic 57–97; PULSE 66–118; RESP 10–27; TEMP 35.8–36.6; O2SAT 94–100
--- NOTE | ~2021-04-03 | CT_ITS ---
EXAMINATION: CT brain wo con INDICATION: Altered mental status, hallucinations COMPARISON: None TECHNIQUE: Standard unenhanced head CT. The dose-length product (DLP) was 605.33 mGy-cm. The mA was a djusted according to patient size. Iterative reconstruction technique was employed. FINDINGS: There is no acute intraparenchymal hemorrhage. No evidence of mass lesion. No evidence of a cute infarction. There is mild periventricular and subcortical hypodensity probably related to small vessel ischemic disease. There is mild prominence of the sulci and ventricles related to cerebral atr ophy. Intracranial calcified cerebral atherosclerosis is noted. There are no extra-axial collections. There is no mass effect or midline shift. Changes in the globes are likely from ocular lens surgery. The visualized sinuses and mastoid air cells are well aerated. IMPRESSION: 1. No acute intracranial abnormality. 2. Age related findings. Reviewed, dictated and finalized at location B.
[2021-04-03] MEDS: HALOPERIDOL LACTATE 5 MG/ML VIAL IM (13:06)
--- NOTE | 2021-04-03 13:45 | ED.AMS ---
HPI - Altered Mental Status General Chief Complaint: Altered Mental Status Stated Complaint: refusing meds, agitation Time Seen by Provider: 04/03/21 12:47 Source: EMS and RN notes reviewed Mode of arrival: EMS Limitations: dementia History of Present Illness HPI narrative: This is a 75 year old female with history of bipolar, dementia who presents for the assisted for evaluation of agitation. EMS reports patient was refusing medication and she was agitated so she was sent to ER. Patient was come initially on arrival to ER. She is now refusing to answer questions . Related Data Home Medications Medication Instructions Recorded Confirmed duloxetine 60 mg PO BID 03/19/21 04/03/21 levothyroxine 50 mcg PO DAILY 03/19/21 04/03/21 trazodone 150 mg PO HS 03/19/21 04/03/21 valacyclovir 1,000 mg PO DAILY 03/19/21 04/03/21 Allergies Allergy/AdvReac Type Severity Reaction Status Date / Time codeine Allergy Unknown sensitive Verified 04/03/21 18:54 lovastatin Allergy Unknown Joint Pain Verified 04/03/21 18:54 morphine Allergy Unknown Itching Verified 04/03/21 18:54 risperidone Allergy Unknown NOt right Verified 04/03/21 18:54 rosuvastatin Allergy Unknown Joint Pain Verified 04/03/21 18:54 Sulfa (Sulfonamide Allergy Unknown ITCHING Verified 04/03/21 18:54 Antibiotics) carbamazepine AdvReac Unknown Nausea Verified 04/03/21 18:54 divalproex sodium [Depakote] AdvReac Unknown manic Verified 04/03/21 18:54 gemfibrozil AdvReac Unknown Nausea Verified 04/03/21 18:54 oxycodone AdvReac Unknown Dizziness Verified 04/03/21 18:54 phenazopyridine AdvReac Unknown Nausea Verified 04/03/21 18:54 prednisone AdvReac Unknown manic Verified 04/03/21 18:54 topiramate AdvReac Unknown Nausea Verified 04/03/21 18:54 Review of Systems Review of Systems: ROS unobtainable: Yes unobtainable due to mental status PMFSH Past Medical History Medical History (Updated 04/03/21 @ 21:34 by Juanita Burton MD) Bipolar disorder with psychotic features Chronic anemia Depression with anxiety Gastroesophageal reflux disease Hypertension Hypothyroidism Obsessive compulsive personality disorder Single seizure Stress incontinence in female Surgical History Surgical History History of back surgery History of bunionectomy History of cataract extraction History of hysterectomy History of suburethral sling procedure History of tonsillectomy Family History Family History Mother Family history of Alzheimer's disease Patient's mother is Father Patient's father is Other Depression Family history of cardiovascular disease Family history of malignant neoplasm of breast in first degree relative Social History Social History (Updated 04/03/21 @ 19:50 by Delores Armstrong PA-C) Social History: Surrogate decision maker: ?The Mandaen? or friend Kelly Reich (a fellow synagogue member). Code status: Full code. Smoking packs per day: 1 Smoking cigarettes per day: 20.0 Years smoked: 5 Smoking pack-years: 5.00 Smoking status: Never smoker Tobacco type: cigarettes Second hand tobacco smoke exposure: No Smoking end date: 10/07/75 Alcohol intake: never Substance use: never Substance use type: does not use Additional living arrangements comments: The patient lives in an apartment in [place]. She has no children. 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 Sexual Orientation (if Verbalized by the Patient): . Exam Const: General: alert Other: yelling at staff HENMT: Head: normocephalic and other (old bruising to forehead) Face and sinus: face symmetric Eyes: Pupils: Equal, round and reactive pupils present EOM: EOMs intact bilaterally Resp: Effort & Inspection: normal respiratory effort and no retractions Aus
[2021-04-03 13:53] LABS: Basophils Absolute Auto 0.1 K/mm3 (0.0-0.1); Basophils Percent Auto 1.2 % (0.2-1.2); Eosinophils Absolute Auto 0.2 K/mm3 (0-0.3); Eosinophils Percent Auto 2.7 % (0-4.4); Hematocrit 34.4 % (37.0-47.0); Hemoglobin 11.3 g/dL (12.0-15.0); Immature Granulocyte Absolute 0.03 K/mm3 (0.00-0.031); Immature Granulocyte Percent A 0.5 % (0-0.5); Lymphocytes Absolute Auto 0.67 K/mm3 (0.9-3.2); Lymphocytes Percent Auto 10.1 % (18.3-44.2); Mean Corpuscular HGB Conc 32.8 g/dl (32-36); Mean Corpuscular Hemoglobin 29.3 pg (26-34); Mean Corpuscular Volume 89.1 fl (80-100); Mean Platelet Volume 8.8 fl (7.4-10.4); Monocytes Absolute Auto 0.7 K/mm3 (0.1-0.6); Monocytes Percent Auto 11.2 % (2.6-8.5); Neutrophils Absolute Auto 4.9 K/mm3 (1.3-6.7); Neutrophils Percent Auto 74.3 % (45.5-73.1); Platelet Count Result 409 k/mm3 (150-375); Red Blood Count 3.86 M/mm3 (4.2-5.4); Red Cell Distribution Width 14.6 % (11.5-14.5); White Blood Count 6.6 K/mm3 (4.5-10.0)
[2021-04-03 14:08] LABS: Alanine Aminotransferase 27 U/L (4-35); Albumin Level 4.1 g/dL (3.5-5.1); Alkaline Phosphatase 93 U/L (38-126); Anion Gap 11 mmol/L (8-16); Aspartate Amino Transferase 33 U/L (14-36); Bilirubin,Total 0.5 mg/dL (0.2-1.3); Blood Urea Nitrogen 20 mg/dL (7-17); Calcium 10.1 mg/dL (8.4-10.2); Carbon Dioxide 22 mmol/L (22-30); Chloride 105 mmol/L (98-107); Estimated CRCL calculation 37 ml/min; Estimated Glomerular Filt Rate 44; Glucose 127 mg/dL (65-105); Potassium 3.9 mmol/L (3.4-5.0); Sodium 138 mmol/L (137-145)
[2021-04-03 14:14] LABS: Add Urine Microscopic? YES; Appearance Urine Cloudy (Clear); Bacteria Urine Trace /hpf; Bilirubin Urine 1+ (Negative); Blood Urine Negative (Negative); Color Urine Amber (Yellow); Glucose Urine UA Negative (Negative); Ketones Urine Trace mg/dL (Negative); Leukocyte Esterase Ur 2+ LEU/UL (Negative); Mucus Urine Moderate /lpf; Nitrate Urine Positive (Negative); Protein Urine 2+ mg/dL (Negative); Specific Grav Ur 1.021 (1.001-1.035); Squamous Epithelial Cell Urine Few /hpf (Few); WBC Clumps Urine Present /HPF; WBC Urine >75 /hpf
[2021-04-03 14:35] LABS: Lithium 0.3 mmol/L (0.6-1.2)
[2021-04-03 14:53] LABS: Creatine Kinase 200 U/L (30-135)
[2021-04-03] MEDS: SODIUM CHLORIDE 0.9% IV 1,000 ML 999 ML IV CONT (15:08)
--- NOTE | 2021-04-03 18:45 | ADMGEN ---
This patient, Rachelle Trinidad, was admitted to [facility] Surg Room 333-01. Patient/family oriented to hospital policies and general routines including ID bracelet, bed and alarms, visiting hours, pain management, procedures, bathroom and other care routines, personal items, smoking policy, room service/diet, and visiting hours. Information on how to activate the Rapid Response Team has been discussed. Patient/Family are encouraged to report perceived risks to care and to ask questions if they do not understand what they are told or what they should do.
--- NOTE | 2021-04-03 19:00 | PM.IMHP ---
H&P: HPI History of Present Illness Date/Time: 04/03/21 19:00 Chief Complaint: Altered mental status. Narrative: This is a 75-year-old female with history bipolar disorder with psychotic features, hypertension, and hypothyroidism who presented to the emergency department earlier today via EMS from a local longterm facility for evaluation of altered mental status. The patient is not able to provide me with an accurate history as she is confused, confabulates, and is in fact quite agitated. As such a majority of the following is obtained via a review of her electronic medical records. The patient is known to myself and the hospitalist service with a recent admission on 03/19/2021 at which time she was brought in after she was found down in a confused state. She was admitted for treatment of rhabdomyolysis and it looks like she was treated for a urinary tract infection as well. She was discharged to [facility] for rehab on 03/30/2021. According to the triage note, the patient was agitated this morning and was refusing to take her medications and she was thus sent to the emergency department. It appears as though she once again has urinary tract infection however it is unclear if she is having symptoms though she does admit to some incontinence though that is a chronic finding for the patient. Looking back through her recent stay her urine did grow out E coli which was pansensitive for which she was treated with ceftriaxone for a total of 5 days. At the time my evaluation she tells me that she is fine and she wants to go home to her mother, who is 91 years old and is living alone although I am not certain this is true. She has no complaints aside from having to be in the hospital and she specifically denies fever, chills, sweats, headache, auditory and visual changes, focal weakness, paresthesias, chest pain, shortness of breath, cough, nausea, vomiting, and diarrhea. Review of Systems Review of Systems: Narrative: Twelve systems were reviewed with pertinent positives and negatives as per HPI. Somewhat limited as she is confused and agitated. Except as detailed in the HPI, all other systems were negative. [facility] Past Medical History Medical History (Updated 04/03/21 @ 20:01 by Delores Armstrong PA-C) Bipolar disorder with psychotic features Chronic anemia Depression with anxiety Gastroesophageal reflux disease Hypertension Hypothyroidism Obsessive compulsive personality disorder Single seizure Stress incontinence in female Surgical History Surgical History History of back surgery History of bunionectomy History of cataract extraction History of hysterectomy History of suburethral sling procedure History of tonsillectomy Family History Family History Mother Family history of Alzheimer's disease Patient's mother is Father Patient's father is Other Depression Family history of cardiovascular disease Family history of malignant neoplasm of breast in first degree relative Social History Social History (Updated 04/03/21 @ 19:50 by Delores Armstrong PA-C) Social History: Surrogate decision maker: ?The Religious? or friend Kelly Reich (a fellow cheondoism member). Code status: Full code. Smoking packs per day: 1 Smoking cigarettes per day: 20.0 Years smoked: 5 Smoking pack-years: 5.00 Smoking status: Never smoker Tobacco type: cigarettes Second hand tobacco smoke exposure: No Smoking end date: 10/07/75 Alcohol intake: never Substance use: never Substance use type: does not use Additional living arrangements comments: The patient lives in an apartment in [place]. She has no children. 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 Sexual Orientation (if Verbalized by the Patient): . Meds Ho
[2021-04-03] MEDS: clonazePAM (*CRX) 0.5 MG TABLET 2 MG PO (21:44)
[2021-04-03] MEDS: traZODone HCL 50 MG TABLET 150 MG PO (21:45)
[2021-04-03] MEDS: SODIUM CHLORIDE 0.9% IV 1,000 ML 75 ML IV CONT (22:28)
[2021-04-04] VITALS (9 sets, daily range): BP systolic 130–145; BP diastolic 50–60; PULSE 75–100; RESP 16–18; TEMP 35.9–36.8; O2SAT 94–98
[2021-04-04 06:22] LABS: Basophils Absolute Auto 0.1 K/mm3 (0.0-0.1); Basophils Percent Auto 1.3 % (0.2-1.2); Eosinophils Absolute Auto 0.3 K/mm3 (0-0.3); Eosinophils Percent Auto 5.5 % (0-4.4); Hematocrit 35.4 % (37.0-47.0); Hemoglobin 10.9 g/dL (12.0-15.0); Immature Granulocyte Absolute 0.02 K/mm3 (0.00-0.031); Immature Granulocyte Percent A 0.4 % (0-0.5); Lymphocytes Percent Auto 17.1 % (18.3-44.2); Mean Corpuscular HGB Conc 30.8 g/dl (32-36); Mean Corpuscular Hemoglobin 28.5 pg (26-34); Mean Corpuscular Volume 92.4 fl (80-100); Mean Platelet Volume 8.9 fl (7.4-10.4); Monocytes Absolute Auto 0.6 K/mm3 (0.1-0.6); Monocytes Percent Auto 11.7 % (2.6-8.5); Platelet Count Result 367 k/mm3 (150-375); Red Blood Count 3.83 M/mm3 (4.2-5.4); Red Cell Distribution Width 15.1 % (11.5-14.5); White Blood Count 4.7 K/mm3 (4.5-10.0)
[2021-04-04 06:42] LABS: Anion Gap 7 mmol/L (8-16); Blood Urea Nitrogen 12 mg/dL (7-17); Calcium 9.1 mg/dL (8.4-10.2); Carbon Dioxide 24 mmol/L (22-30); Chloride 111 mmol/L (98-107); Estimated CRCL calculation 69 ml/min; Estimated Glomerular Filt Rate > 60; Glucose 110 mg/dL (65-105); Magnesium 2.2 mg/dL (1.6-2.3); Potassium 3.5 mmol/L (3.4-5.0); Sodium 142 mmol/L (137-145)
[2021-04-04 08:42] LABS: Lithium < 0.2 mmol/L (0.6-1.2)
[2021-04-04] MEDS: clonazePAM (*CRX) 0.5 MG TABLET 2 MG PO (10:02)
[2021-04-04] MEDS: TOLNAFTATE 1% POWDER 45 GM BTL 1 APPLIC TOPICAL ×2 (10:03→22:02)
[2021-04-04] MEDS: valACYclovir HCL 500 MG TABLET 1000 MG PO (10:04)
[2021-04-04] MEDS: DULoxetine HCL 60 MG CAPSULE.DR PO ×2 (10:04→17:10)
[2021-04-04] MEDS: lamoTRIgine 100 MG, lamoTRIgine 50 MG 150 MG PO ×2 (10:04→22:01)
[2021-04-04] MEDS: PANTOPRAZOLE 40 MG TABLET PO ×2 (10:05→22:01)
[2021-04-04] MEDS: LITHIUM CARBONATE 300 MG CAPSULE PO ×2 (10:05→17:10)
[2021-04-04] MEDS: SODIUM CHLORIDE 0.9% IV 1,000 ML 75 ML IV CONT (10:33)
--- NOTE | 2021-04-04 12:01 | PM.IMPN ---
Progress Note: A&P Assessment and Plan (1) Altered mental status: Code(s): R41.82 - Altered mental status, unspecified Status: Acute Assessment and Plan: will continue with IV antibiotics and monitor culture. (2) Bipolar disorder with psychotic features: Code(s): F31.9 - Bipolar disorder, unspecified Status: Acute Assessment and Plan: As detailed above I think we should look at transferring to a facility where a geriatric psychiatrist can evaluate her. Check Lamictal and lithium levels. (3) Abnormal urinalysis: Code(s): R82.90 - Unspecified abnormal findings in urine Status: Acute Assessment and Plan: While the patient did receive a 5 day course of IV ceftriaxone with her recent hospitalization, perhaps she needs a bit longer treatment thus will start ceftriaxone again, pending urine culture. It is noted that she did have a Vital catheter in place with her recent hospitalization due to urine retention thus will bladder scan to ensure she is not having issues with this again. (4) Dehydration: Code(s): E86.0 - Dehydration Status: Acute Assessment and Plan: The patient will be hydrated overnight with repeat labs in a.m. (creatinine is a bit elevated from baseline). (5) Chronic anemia: Code(s): D64.9 - Anemia, unspecified Status: Acute Assessment and Plan: Hemoglobin and hematocrit are stable on review of previous labs. (6) Hypothyroidism: Code(s): E03.9 - Hypothyroidism, unspecified Status: Acute Assessment and Plan: TSH done earlier this month was within normal limits. Continue levothyroxine.. Additional Plan Will continue current plan of care and treatment. Check cultures. Subjective Date/time seen: 04/04/21 12:01 Patient was seen during morning rounds today. Patient is feeling slightly better. Slightly more awake. No shortness of breath or chest pain. No abdominal pain, no nausea, no vomiting. Mood stable. Review of Systems Review of Systems: All systems reviewed & are unremarkable except as noted in HPI and below ( the history and physical exam.) Exam Narrative: Exam Narrative: General: Elderly female in the semi-Pat position in bed. Weight: 73.3 kg. BMI: 27.7. HEENT: Nearly healed bruise about the left eye. PERRL, EOMI. Sclerae anicteric. Conjunctiva mildly injected. Tacky mucous membranes. Neck: Supple. No midline vertebral tenderness. No JVD. Respiratory: Lung sounds are diminished due to poor effort. She is speaking in full sentences and respirations are nonlabored. Cardiovascular: Regular rate and rhythm with S1-S2. Gastrointestinal: Abdomen is soft, nontender, and nondistended with positive bowel sounds. Skin: Warm and dry. Scattered bruises and skin tears from fall several weeks ago in various stages of healing. Extremities: No cyanosis or clubbing. Trace laila ankle edema bilaterally. Negative Roseanne sign bilaterally. Neurological: Alert to name, age, and date of . She cannot give me the name of the current president or the current year. not oriented to situation, patient tells me she was at work prior to being brought to the hospital. Cranial nerves 2-12 are grossly intact. Speech is clear. No facial asymmetry. Noted to move upper and lower extremities. She did not participate in the rest of the neurologic exam as she got agitated. Psychiatric: Initially cooperative however she became increasingly agitated with my questions. She is confused and confabulates. Objective Data Vital Signs Vital Signs: Vital Signs - 24 hr 04/03/21 12:49 04/03/21 13:31 04/03/21 14:01 Temperature 35.9 C L Pulse Rate 118 H 105 H 102 H Respiratory Rate 17 16 20 Blood Pressure 139/97 H 120/76 135/68 Pulse Oximetry 98 98 98 04/03/21 14:16 04/03/21 14:31 04/03/21 14:46 Temperature Pulse Rate 102 H 101 H 98 Respiratory Rate 16 25 H 24 H Blood Pres
--- NOTE | 2021-04-04 17:02 | WPDURCON ---
Assessment and Plan Assessment and plan (1) UTI (urinary tract infection): Code(s): N39.0 - Urinary tract infection, site not specified Status: Acute Assessment and Plan: Continue antibiotics, tailor to culture results. (2) Urinary retention: Code(s): R33.9 - Retention of urine, unspecified Status: Acute Assessment and Plan: Keep sutton catheter in place, spoke with Dr. Claros, she will need to follow up in the office to repeat Urodynamics and futher evaluate. Ok to discharge whenever medically stable. No further evaluation needed at this time. Dr. Claros is suspcious that her urethral sling may be too tight causing her retention. Urology Consult Note HPI Date Seen: 04/04/21 Requesting Physician: Sebastian Walker MD Primary Care Provider: Luigi Hernandez MD Consult Narrative Narrative: Rachelle Trinidad is a 75 year old female who presented to the ER by EMS for refusing to take medications, altered mental status and confusion/lethargy from the [place]. WBC is 4.7, creatinine is 0.60, UA is positive for infection and patient is in retention with a sutton catheter in place. It is unknown as to how much urine was noted on return when her sutton was placed. She is known to our group by Dr. Claros who performed a cystoscope, urethral sling, cystocele repair anterior colporrhapy in 12/2020. She had urodynamics in 10/2020 which didn't show an atonic bladder, she was having detrusor contractions at that time. She states her symptoms of UTI's and difficulty urinating started after her surgery. She is alert and oriented x 2, but thinks she lives at home and her mother is still alive ( who is ). She had a hospitalization here two weeks ago and had a urine culture then which showed growth of E-Coli, which she was treated for and discharged to the [place]. She had an abdominal US on 03/20/2021 which was normal. Review of Systems Cardiovascular: Cardiovascular: Denies chest pain Respiratory: Respiratory: Reports no additional respiratory complaints Gastrointestinal: Gastrointestinal: Denies abdominal pain, Denies nausea and Denies vomiting Genitourinary: Genitourinary: Denies hematuria, Denies nocturia and Reports urinary incontinence [facility] Past Medical History Medical History Bipolar disorder with psychotic features Chronic anemia Depression with anxiety Gastroesophageal reflux disease Hypertension Hypothyroidism Obsessive compulsive personality disorder Single seizure Stress incontinence in female Surgical History Surgical History History of back surgery History of bunionectomy History of cataract extraction History of hysterectomy History of suburethral sling procedure History of tonsillectomy Family History Family History Mother Family history of Alzheimer's disease Patient's mother is Father Patient's father is Other Depression Family history of cardiovascular disease Family history of malignant neoplasm of breast in first degree relative Social History Social History Social History: Surrogate decision maker: ?The Muslim? or friend Blakekatja Marcoer (a fellow amish member). Code status: Full code. Smoking packs per day: 1 Smoking cigarettes per day: 20.0 Years smoked: 5 Smoking pack-years: 5.00 Smoking status: Never smoker Tobacco type: cigarettes Second hand tobacco smoke exposure: No Smoking end date: 10/07/75 Alcohol intake: never Substance use: never Substance use type: does not use Additional living arrangements comments: The patient lives in an apartment in [place]. She has no children. 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 Sexual Orientatio
[2021-04-04] MEDS: HEPARIN SODIUM 5,000 UNITS/ML VIAL 5000 UNITS SUB-Q (22:02)
[2021-04-05] VITALS (7 sets, daily range): BP systolic 102–148; BP diastolic 56–69; PULSE 94–110; RESP 18–24; TEMP 36.4–37.2; O2SAT 93–100
[2021-04-05] MEDS: LEVOTHYROXINE SODIUM 50 MCG TABLET PO (05:51)
[2021-04-05 06:23] LABS: Ammonia < 9 umol/L (9-30)
[2021-04-05] MEDS: valACYclovir HCL 500 MG TABLET 1000 MG PO (09:14)
[2021-04-05] MEDS: lamoTRIgine 100 MG, lamoTRIgine 50 MG 150 MG PO ×2 (09:14→20:18)
[2021-04-05] MEDS: HEPARIN SODIUM 5,000 UNITS/ML VIAL 5000 UNITS SUB-Q ×2 (09:15→20:18)
[2021-04-05] MEDS: TOLNAFTATE 1% POWDER 45 GM BTL 1 APPLIC TOPICAL ×2 (09:15→20:22)
[2021-04-05] MEDS: DULoxetine HCL 60 MG CAPSULE.DR PO ×2 (09:15→17:27)
[2021-04-05] MEDS: PANTOPRAZOLE 40 MG TABLET PO ×2 (09:15→20:20)
[2021-04-05] MEDS: LITHIUM CARBONATE 300 MG CAPSULE PO ×2 (09:15→17:27)
[2021-04-05] MEDS: clonazePAM (*CRX) 0.5 MG TABLET 2 MG PO ×2 (09:28→20:20)
--- NOTE | 2021-04-05 10:37 | PM.IMPN ---
Progress Note: A&P Assessment and Plan (1) Altered mental status: Code(s): R41.82 - Altered mental status, unspecified Status: Acute Assessment and Plan: will continue with IV antibiotics and monitor culture. (2) Bipolar disorder with psychotic features: Code(s): F31.9 - Bipolar disorder, unspecified Status: Acute Assessment and Plan: As detailed above I think we should look at transferring to a facility where a geriatric psychiatrist can evaluate her. Check Lamictal and lithium levels. (3) Abnormal urinalysis: Code(s): R82.90 - Unspecified abnormal findings in urine Status: Acute Assessment and Plan: While the patient did receive a 5 day course of IV ceftriaxone with her recent hospitalization, perhaps she needs a bit longer treatment thus will start ceftriaxone again, pending urine culture. It is noted that she did have a Vital catheter in place with her recent hospitalization due to urine retention thus will bladder scan to ensure she is not having issues with this again. (4) Dehydration: Code(s): E86.0 - Dehydration Status: Acute Assessment and Plan: The patient will be hydrated overnight with repeat labs in a.m. (creatinine is a bit elevated from baseline). (5) Chronic anemia: Code(s): D64.9 - Anemia, unspecified Status: Acute Assessment and Plan: Hemoglobin and hematocrit are stable on review of previous labs. (6) Hypothyroidism: Code(s): E03.9 - Hypothyroidism, unspecified Status: Acute Assessment and Plan: TSH done earlier this month was within normal limits. Continue levothyroxine.. Additional Plan Will continue current plan of care and treatment. Check cultures. 04/05/2021: Patient is more awake and alert. Will continue current treatment and monitor culture. WBC and electrolytes are normal. Start physical therapy. Possible discharge in the morning. Subjective Date/time seen: 04/05/21 10:37 Patient was seen during the morning rounds today. Patient is more awake and alert. Patient feeling better. Patient denies any shortness of breath or chest pain. No abdominal pain, no nausea no vomiting. Mood stable. Review of Systems Review of Systems: All systems reviewed & are unremarkable except as noted in HPI and below ( the history and physical exam.) Exam Narrative: Exam Narrative: General: Elderly female in the semi-Pat position in bed. Weight: 73.3 kg. BMI: 27.7. HEENT: Nearly healed bruise about the left eye. PERRL, EOMI. Sclerae anicteric. Conjunctiva mildly injected. Tacky mucous membranes. Neck: Supple. No midline vertebral tenderness. No JVD. Respiratory: Lung sounds are diminished due to poor effort. She is speaking in full sentences and respirations are nonlabored. Cardiovascular: Regular rate and rhythm with S1-S2. Gastrointestinal: Abdomen is soft, nontender, and nondistended with positive bowel sounds. Skin: Warm and dry. Scattered bruises and skin tears from fall several weeks ago in various stages of healing. Extremities: No cyanosis or clubbing. Trace laila ankle edema bilaterally. Negative Roseanne sign bilaterally. Neurological: Alert to name, age, and date of . She cannot give me the name of the current president or the current year. not oriented to situation, patient tells me she was at work prior to being brought to the hospital. Cranial nerves 2-12 are grossly intact. Speech is clear. No facial asymmetry. Noted to move upper and lower extremities. She did not participate in the rest of the neurologic exam as she got agitated. Psychiatric: Initially cooperative however she became increasingly agitated with my questions. She is confused and confabulates. Objective Data Vital Signs Vital Signs: Vital Signs - 24 hr 04/04/21 12:00 04/04/21 14:00 04/04/21 16:00 Temperature 36.6 C Pulse Rate 95 100 96 Respiratory Rate 1
--- NOTE | 2021-04-05 16:01 | PC.NURSE ---
Patient has been having hallucinations all day. Patient is alert and oriented X 3. Patient is taking to Humera and Symone who are not in the room. She is also talking to her Mom who a few years ago. Patient is staring at the window watching people on the other side. When looking out window you see the roof.
[2021-04-05] MEDS: traZODone HCL 50 MG TABLET 150 MG PO (20:20)
[2021-04-06 06:00] VITALS: BP 138/64; PULSE 93; RESP 16; TEMP 36.2; O2SAT 94
[2021-04-06] MEDS: LEVOTHYROXINE SODIUM 50 MCG TABLET PO (06:53)
[2021-04-06] MEDS: HEPARIN SODIUM 5,000 UNITS/ML VIAL 5000 UNITS SUB-Q (09:02)
[2021-04-06] MEDS: PANTOPRAZOLE 40 MG TABLET PO (09:03)
[2021-04-06] MEDS: clonazePAM (*CRX) 0.5 MG TABLET 2 MG PO (09:03)
[2021-04-06] MEDS: DULoxetine HCL 60 MG CAPSULE.DR PO (09:04)
[2021-04-06] MEDS: lamoTRIgine 100 MG, lamoTRIgine 50 MG 150 MG PO (09:04)
[2021-04-06] MEDS: valACYclovir HCL 500 MG TABLET 1000 MG PO (09:04)
[2021-04-06] MEDS: LITHIUM CARBONATE 300 MG CAPSULE PO (09:04)
[2021-04-06] MEDS: TOLNAFTATE 1% POWDER 45 GM BTL 1 APPLIC TOPICAL (09:04)
[2021-04-06 14:00] VITALS: BP 113/57; PULSE 93; RESP 12; TEMP 35.9; O2SAT 98
--- NOTE | 2021-04-06 17:23 | PM.IMPN ---
Progress Note: A&P Assessment and Plan (1) Altered mental status: Code(s): R41.82 - Altered mental status, unspecified Status: Acute Assessment and Plan: will continue with IV antibiotics Await cultures. (2) Bipolar disorder with psychotic features: Code(s): F31.9 - Bipolar disorder, unspecified Status: Acute Assessment and Plan: As detailed above I think we should look at transferring to a facility where a geriatric psychiatrist can evaluate her. Check Lamictal and lithium levels. (3) Abnormal urinalysis: Code(s): R82.90 - Unspecified abnormal findings in urine Status: Acute Assessment and Plan: urinalysis culture is growing Enterococcus sent is sensitive to ampicillin and vanc continue Rocephin continue to monitor While the patient did receive a 5 day course of IV ceftriaxone with her recent hospitalization, perhaps she needs a bit longer treatment thus will start ceftriaxone again, pending urine culture. It is noted that she did have a Vital catheter in place with her recent hospitalization due to urine retention thus will bladder scan to ensure she is not having issues with this again. (4) Dehydration: Code(s): E86.0 - Dehydration Status: Acute Assessment and Plan: The patient will be hydrated overnight with repeat labs in a.m. (creatinine is a bit elevated from baseline). (5) Chronic anemia: Code(s): D64.9 - Anemia, unspecified Status: Acute Assessment and Plan: Hemoglobin and hematocrit are stable on review of previous labs. (6) Hypothyroidism: Code(s): E03.9 - Hypothyroidism, unspecified Status: Acute Assessment and Plan: TSH done earlier this month was within normal limits. Continue levothyroxine.. Additional Plan Will continue current plan of care and treatment. Check cultures. 04/05/2021: Patient is more awake and alert. Will continue current treatment and monitor culture. WBC and electrolytes are normal. Start physical therapy. Possible discharge in the morning. Subjective Date/time seen: 04/06/21 17:23 I FEEL MUCH BETTER TO THE Review of Systems Review of Systems: All systems reviewed & are unremarkable except as noted in HPI and below ( the history and physical exam.) Exam Narrative: Exam Narrative: SITTING IN BED Const: General: comfortable, no acute distress, well developed, alert and awake Nutritional Appearance: average body habitus Orientation/consciousness: patient oriented x3 HENMT: Head: normal to inspection, normocephalic and atraumatic Ears: hearing grossly normal bilaterally Face and sinus: normal facial exam Eyes: General: appearance normal, both eyes and all related structures Pupils: Equal, round and reactive pupils present EOM: EOMs intact bilaterally Neck: Neck: full ROM, no lymphadenopathy and no JVD Thyroid: thyroid normal Lymphatic: no lymphadenopathy noted Resp: Effort & Inspection: normal respiratory effort and able to speak in complete sentences Auscultation: clear to auscultation bilaterally Cardio: Jugular venous distension: no JVD Rate: regular rate Rhythm: regular rhythm Heart sounds: S1 normal heart sound present and S2 normal heart sound present GI: GI Palp: Yes Soft to palpation and Yes No hepatosplenomegaly present : General: Yes deferred Skin: Rashes: no rashes Wounds: no wounds Neuro: General: patient oriented x3 and CN's II-XI intact bilaterally Cranial nerves: Yes CN's II-XII intact bilaterally and Yes Equal, round and reactive pupils present Cognition (Neuro): normal cognition Speech: normal speech Gait exam (Neuro): Normal gait present Motor exam (neuro): 5/5 motor strength present throughout Extrem: General: normal to inspection, full ROM, no joint enlargement and no pedal edema Objective Data Vital Signs Vital Signs: Vital Signs - 24 hr 04/05/21 22:00 04/06/21 06:00 Temperur
[2021-04-06] MEDS: HALOPERIDOL LACTATE 5 MG/ML VIAL IM (17:41)
[2021-04-06 21:54] VITALS: BP 126/50; PULSE 97; RESP 18; TEMP 36.6; O2SAT 96
[2021-04-06 23:59] LABS: Lamotrigine Lamictal 5.8 mcg/mL (4.0-18.0)
[2021-04-07] MEDS: LORazepam INJ (*CRX) 2 MG/ML VIAL 1 MG IV PUSH (02:15)
[2021-04-07] MEDS: HALOPERIDOL LACTATE 5 MG/ML VIAL 10 MG IM ×2 (02:55→09:06)
[2021-04-07 06:00] VITALS: BP 122/100; PULSE 88
--- NOTE | 2021-04-07 06:20 | WPDCDIQUERY2 ---
CDI Query Clarification Request -UTI documented by EDP -Abnormal urinalysis and urinalysis culture is growing Enterococcus documented by hositalists -04/03 urine culture growing Enterococcus species and coag neg staph -04/04 urine culture growing Enterococcus -Pt is on Ceftriaxone Please clarify if UTI has been ruled in or ruled out. <Latisha Jimenez RN - Last Filed: 04/07/21 06:23> Clarified Diagnosis (1) UTI (urinary tract infection): Code(s): N39.0 - Urinary tract infection, site not specified <Latisha Jimenez RN - Last Filed: 04/07/21 06:23> Status: Acute <Latisha Jimenez RN - Last Filed: 04/07/21 06:23> Assessment and Plan: UA cx growing enterococcus CFU>100,000 <Reynold Mitchell MD - Last Filed: 04/07/21 07:12>
[2021-04-07 08:00] VITALS: BP 127/71
[2021-04-07] MEDS: clonazePAM (*CRX) 0.5 MG TABLET 2 MG PO (08:55)
[2021-04-07] MEDS: NITROFURANTOIN MONOHYD MACROCR 100 MG CAP PO (08:56)
[2021-04-07] MEDS: HEPARIN SODIUM 5,000 UNITS/ML VIAL 5000 UNITS SUB-Q (08:56)
[2021-04-07] MEDS: valACYclovir HCL 500 MG TABLET 1000 MG PO (08:56)
[2021-04-07] MEDS: DULoxetine HCL 60 MG CAPSULE.DR PO (08:56)
[2021-04-07] MEDS: LITHIUM CARBONATE 300 MG CAPSULE PO (08:57)
[2021-04-07] MEDS: lamoTRIgine 100 MG, lamoTRIgine 50 MG 150 MG PO (08:57)
[2021-04-07] MEDS: PANTOPRAZOLE 40 MG TABLET PO (08:57)
--- NOTE | 2021-04-07 09:50 | WPDUROPN2 ---
Progress Note: A&P Assessment and Plan (1) UTI (urinary tract infection): Code(s): N39.0 - Urinary tract infection, site not specified Status: Acute Assessment and Plan: Urine culture is growing out Enterococcus. Would treat with culture specific antibiotics for 1 week total. (2) Urinary retention: Code(s): R33.9 - Retention of urine, unspecified Status: Acute Assessment and Plan: Difficult to discern the etiology. She did have a pelvic surgery and December. Was seen in the office twice post surgery and was having no voiding issues and no urinary retention. Etiology of retention could be her delirium. Could be Anticholinergic side effects of her medications for her psychiatric disorder. Could Also be secondary to infection. I think a voiding trial is appropriate once her mental status clears. I suspect she will be able to empty her bladder. Subjective Subjective Date/Time Seen: 04/07/21 09:50 patient having active psychiatric issues. They are currently giving her Haldol. Urine culture is growing out Enterococcus. Exam Const: General: awake, Physically active, combative and confusion; No cooperative or acute distress Nutritional Appearance: average body habitus HENMT: Head: normal to inspection Mouth: Yes Normal oral and palatal mucosa present Eyes: General: appearance normal, both eyes and all related structures Neck: Neck: normal visual inspection Urinary Catheter: Urinary Catheter: patent and draining Skin: General skin exam: normal color Neuro: General: No patient oriented x3 Objective Data Vital Signs Vital Signs: Vital Signs - 24 hr 04/06/21 14:00 04/06/21 21:54 04/07/21 06:00 Temperature 96.7 F L 97.8 F Pulse Rate 93 97 88 Respiratory Rate 12 18 Blood Pressure 113/57 L 126/50 L 122/100 H Pulse Oximetry 98 96 04/07/21 08:00 Temperature Pulse Rate Respiratory Rate Blood Pressure 127/71 Pulse Oximetry Intake/Output Intake/Output: Intake & Output 04/04/21 04/05/21 04/06/21 04/07/21 23:59 23:59 23:59 23:59 Intake Total 1330 1820 750 500 Output Total 1425 1410 1200 750 Balance -95 410 -450 -250 Meds/Results Medications: Active Medications Generic Name Dose Route Start Last Admin Trade Name Freq PRN Reason Stop Dose Admin Clonazepam 2 mg 04/03/21 21:00 04/07/21 08:55 Clonazepam (*Crx) 0.5 Mg Tablet PO 2 mg Q12HR QUITA Administration Duloxetine HCl 60 mg 04/03/21 20:05 04/07/21 08:56 Duloxetine Hcl 60 Mg Capsule.Dr PO 60 mg BID QUITA Administration Heparin Sodium (Porcine) 5,000 units 04/04/21 21:00 04/07/21 08:56 Heparin Sodium 5,000 Units/Ml Vial SUB-Q 5,000 units Q12HR QUITA Administration Lamotrigine 100 mg/ 150 mg 04/03/21 21:00 04/07/21 08:57 Lamotrigine 50 mg PO 150 mg Q12HR QUITA Administration Levothyroxine Sodium 50 mcg 04/04/21 06:30 04/07/21 06:02 Levothyroxine Sodium 50 Mcg Tablet PO Not Given DAILY@0630 QUITA [place] Carbonate 300 mg 04/03/21 20:05 04/07/21 08:57 [place] Carbonate 300 Mg Capsule PO 300 mg BID QUITA Administration Nitrofurantoin Macrocrystals 100 mg 04/07/21 08:00 04/07/21 08:56 Nitrofurantoin Monohyd Macrocr 100 Mg Cap PO 04/11/21 17:01 100 mg BIDWM QUITA Administration Pantoprazole Sodium 40 mg 04/04/21 09:00 04/07/21 08:57 Pantoprazole 40 Mg Tablet PO 40 mg Q12HR QUITA Administration Tolnaftate 1 applic 04/04/21 09:00 04/07/21 01:41 Tolnaftate 1% Powder 45 Gm Btl TOPICAL Not Given Q12HR [facility] Trazodone HCl 150 mg 04/03/21 21:00 04/07/21 01:39 Trazodone Hcl 50 Mg Tablet PO Not Given HS [facility] Valacyclovir HCl 1,000 mg 04/04/21 09:00 04/07/21 08:56 Valacyclovir Hcl 500 Mg Tablet PO 1,000 mg DAILY QUITA Administration Labs Labs: Laboratory Results - last 24 hr 04/03/21 20:16 Lamotrigine 5.8 Quality VTE Prophylaxis VTE prophylaxis: mechanical ordered
--- NOTE | 2021-04-07 13:47 | PCOTNOTE ---
Attempted to see patient, patient refusing to participate in OT. Assisted [employer] ADJUSTER and RN with bed mobility due to patient uncooperative and delusional. Will continue plan of care tomorrow, 04/08/21.
[2021-04-07 14:00] VITALS: BP 138/72; PULSE 92; RESP 18; O2SAT 93
--- NOTE | 2021-04-07 16:50 | PCPTNOTE ---
Addendum entered by Terrence Kimble, [employer] 04/07/21 16:52: PT was attempted at 11:30 today. Original Note: Patient refused treatment this session. Patient agitated and stated get out of here! PT will continue to follow per plan of care.
--- NOTE | 2021-04-07 18:47 | PC.NURSE ---
Patient has had hallucinations through out the day and evening. Patient refuses meals and water. Only will drink Pepsi. Patient leaning to the right in bed refuses to get out of bed. Patient would not answer orientation questions for place and time for 1200 and 1600. Patient yelling out names and talking to them. Patient refused evening medication.
[2021-04-07 20:54] VITALS: BP 120/61; PULSE 92; RESP 18; TEMP 36.6; O2SAT 97
--- NOTE | 2021-04-08 00:27 | PC.NURSE ---
Patient refused 1700 medications left over from day shift, she has continued to refuse all 2100 medications additionally. She is most concerned with getting her mother Clarita in and out of the rain. She threw her entire water pitcher against the wall, I have since moved things out of her reach. Will continue to attempt to pass 2100 meds as the night goes on. Patient is currently safe and in bed and still calling out for her mom. She states she is in no pain and feels well.. She was concerned I would be hit by the bomb outside and kindly asked me to leave the room
--- NOTE | 2021-04-08 02:37 | PC.NURSE ---
Patient pulled out IV, stated robbers are in her room because she is badly infected I asked if I could get her medications for the infection and she stated she refused. Will continue to attempt to pass 2100 medications. Patient stated she is comfortable and not in pain Iv site not actively bleeding, refused bandaid. -AEW RN
[2021-04-08 06:00] VITALS: BP 145/62; PULSE 85; RESP 16; TEMP 36.7; O2SAT 94
[2021-04-08] MEDS: LEVOTHYROXINE SODIUM 50 MCG TABLET PO (06:03)
--- NOTE | 2021-04-08 06:11 | PC.NURSE ---
patient woke up in a completely different state, pleasant and not yelling, agreed to take her thyroid pill but nothing else. Refused snack or drink, said it was laced .. Said she is feeling fine, no pain or stomach upset. Very sleepy. Still no IV access at this time. -AEW RN
[2021-04-08] MEDS: NITROFURANTOIN MONOHYD MACROCR 100 MG CAP PO (09:09)
[2021-04-08] MEDS: clonazePAM (*CRX) 0.5 MG TABLET 2 MG PO (09:09)
[2021-04-08] MEDS: HEPARIN SODIUM 5,000 UNITS/ML VIAL 5000 UNITS SUB-Q (09:09)
[2021-04-08] MEDS: DULoxetine HCL 60 MG CAPSULE.DR PO (09:09)
[2021-04-08] MEDS: lamoTRIgine 100 MG, lamoTRIgine 50 MG 150 MG PO (09:10)
[2021-04-08] MEDS: PANTOPRAZOLE 40 MG TABLET PO (09:10)
[2021-04-08] MEDS: LITHIUM CARBONATE 300 MG CAPSULE PO (09:11)
[2021-04-08] MEDS: valACYclovir HCL 500 MG TABLET 1000 MG PO (09:11)
[2021-04-08] MEDS: TOLNAFTATE 1% POWDER 45 GM BTL 1 APPLIC TOPICAL (09:11)
--- NOTE | 2021-04-08 13:18 | PM.DS ---
DS: Admitting Diagnosis Admitting Diagnosis Admitting Diagnosis: (1) Altered mental status: Code(s): R41.82 - Altered mental status, unspecified Status: Acute Assessment and Plan: will continue with IV antibiotics and monitor culture. (2) Bipolar disorder with psychotic features: Code(s): F31.9 - Bipolar disorder, unspecified Status: Acute Assessment and Plan: As detailed above I think we should look at transferring to a facility where a geriatric psychiatrist can evaluate her. Check Lamictal and lithium levels. (3) Abnormal urinalysis: Code(s): R82.90 - Unspecified abnormal findings in urine Status: Acute Assessment and Plan: While the patient did receive a 5 day course of IV ceftriaxone with her recent hospitalization, perhaps she needs a bit longer treatment thus will start ceftriaxone again, pending urine culture. It is noted that she did have a Unger catheter in place with her recent hospitalization due to urine retention thus will bladder scan to ensure she is not having issues with this again. (4) Dehydration: Code(s): E86.0 - Dehydration Status: Acute Assessment and Plan: The patient will be hydrated overnight with repeat labs in a.m. (creatinine is a bit elevated from baseline). (5) Chronic anemia: Code(s): D64.9 - Anemia, unspecified Status: Acute Assessment and Plan: Hemoglobin and hematocrit are stable on review of previous labs. (6) Hypothyroidism: Code(s): E03.9 - Hypothyroidism, unspecified Status: Acute Assessment and Plan: TSH done earlier this month was within normal limits. Continue levothyroxine.. DS: Discharge Diagnosis Discharge Diagnosis (1) UTI (urinary tract infection): Code(s): N39.0 - Urinary tract infection, site not specified Status: Acute Assessment and Plan: UA cx growing enterococcus CFU>100,000 DS: Summary Hospital Course Reason for hospitalization: altered mental status Hospital Course: Rachelle Trinidad is a 75 year old female who presented to the ER by EMS for refusing to take medications, altered mental status and confusion/lethargy from the SD. WBC is 4.7, creatinine is 0.60, UA is positive for infection and patient is in retention with a unger catheter in place. It is unknown as to how much urine was noted on return when her unger was placed. She is known to our group by Dr. Claros who performed a cystoscope, urethral sling, cystocele repair anterior colporrhapy in 12/2020. She had urodynamics in 10/2020 which didn't show an atonic bladder, she was having detrusor contractions at that time. She states her symptoms of UTI's and difficulty urinating started after her surgery. She is alert and oriented x 2, but thinks she lives at home and her mother is still alive ( who is ). She had a hospitalization here two weeks ago and had a urine culture then which showed growth of E-Coli, which she was treated for and discharged to the SD. She had an abdominal US on 03/20/2021 which was normal. UNGER CATHETER WAS PLACED IN WILL LIVE IN AND IN THE OUTPATIENT SETTING PATIENT WILL HAVE URODYNAMIC STUDIES PERFORMED AT UROLOGY OFFICE. PATIENT WAS TREATED FOR URINARY TRACT INFECTION AND URINARY RETENTION. HOSPITAL STAY WAS SIGNIFICANT FOR PATIENT'S DECOMPENSATION OF HER PSYCHIATRIC ILLNESS BUT ONCE PATIENT WAS PLACED BACK ON HER USUAL MEDICATION SHE WAS BETTER CONSULTS OBTAINED: UROLOGY PROCEDURES PERFORMED: NO PROCEDURES Status at Discharge Cognitive/behavioral status at discharge: AAOX3 Functional status at discharge: independent ambulation Overall status at discharge: patient is back to baseline Time Spent with Patient Time attestation: Total time spent providing and/or coordinating discharge services: Exam Narrative: Exam Narrative: SITTING IN BED Const: General: comfortable, no acute distress, well developed, alert and awake Nutritiona
[2021-04-08 14:00] VITALS: BP 126/62; PULSE 102; RESP 20; TEMP 36.6; O2SAT 98
--- NOTE | 2021-04-25 19:21 | PM.IMPN ---
Progress Note: A&P Assessment and Plan (1) UTI (urinary tract infection): Code(s): N39.0 - Urinary tract infection, site not specified Status: Acute Assessment and Plan: UA cx growing enterococcus CFU>100,000 Additional Plan Will continue current plan of care and treatment. Check cultures. 04/05/2021: Patient is more awake and alert. Will continue current treatment and monitor culture. WBC and electrolytes are normal. Start physical therapy. Possible discharge in the morning. Subjective Date/time seen: 04/25/21 19:21 I feel better Review of Systems Review of Systems: All systems reviewed & are unremarkable except as noted in HPI and below ( the history and physical exam.) ROS unobtainable: Yes unobtainable due to mental status Cardiovascular: Cardiovascular: Denies chest pain Respiratory: Respiratory: Reports no additional respiratory complaints Gastrointestinal: Gastrointestinal: Denies abdominal pain, Denies nausea and Denies vomiting Genitourinary: Genitourinary: Denies hematuria, Denies nocturia and Reports urinary incontinence Neurologic: Reports confusion Psychiatric: Psychiatric: Reports confusion Exam Narrative: Exam Narrative: SITTING IN BED Const: General: comfortable, no acute distress, well developed, alert and awake Nutritional Appearance: average body habitus Orientation/consciousness: patient oriented x3 HENMT: Head: normal to inspection, normocephalic and atraumatic Ears: hearing grossly normal bilaterally Face and sinus: normal facial exam Eyes: General: appearance normal, both eyes and all related structures Pupils: Equal, round and reactive pupils present EOM: EOMs intact bilaterally Neck: Neck: full ROM, no lymphadenopathy and no JVD Thyroid: thyroid normal Lymphatic: no lymphadenopathy noted Resp: Effort & Inspection: normal respiratory effort and able to speak in complete sentences Auscultation: clear to auscultation bilaterally Cardio: Jugular venous distension: no JVD Rate: regular rate Rhythm: regular rhythm Heart sounds: S1 normal heart sound present and S2 normal heart sound present : General: Yes deferred Skin: Rashes: no rashes Wounds: no wounds Neuro: General: patient oriented x3 and CN's II-XI intact bilaterally Cranial nerves: Yes CN's II-XII intact bilaterally and Yes Equal, round and reactive pupils present Cognition (Neuro): normal cognition Speech: normal speech Gait exam (Neuro): Normal gait present Motor exam (neuro): 5/5 motor strength present throughout Extrem: General: normal to inspection, full ROM, no joint enlargement and no pedal edema Objective Data Meds/Results Radiology Results: ITS Impressions Head CT 04/07/21 10:44 IMPRESSION: 1. No acute intracranial abnormality. 2. Age related findings. Quality VTE Prophylaxis VTE prophylaxis: mechanical ordered
== END 2021-04-08 16:45 | DRG 690 ==
LOC: ANHED 13:35 → ANH3MEDSUR 15:40
PROVIDERS: Internal Medicine; Physician Assistant; Admitting Provider Emergency Medicine; Emergency Provider General Practice; PCP Family Medicine; Visit Provider Internal Medicine
DX: N39.0 Urinary tract infection, site not specified (principal); E86.0 Dehydration; K21.9 Gastro-esophageal reflux disease without esophagitis; F42.9 Obsessive-compulsive disorder, unspecified; I10 Essential (primary) hypertension; F31.9 Bipolar disorder, unspecified; E03.9 Hypothyroidism, unspecified; B96.20 Unspecified Escherichia coli [E. coli] as the cause of diseases classified elsewhere; R33.9 Retention of urine, unspecified; D64.9 Anemia, unspecified
CPT/HCPCS: 36415; 70450; 80048; 80053; 80175; 80178; 81001; 82140; 82550; 83735; 85025; 87040; 87077; 87086; 87088; 87186; 96361; 96365; 96372; 97110; 97161; 97166; 97530; 97535; 99285; A9270; G0378; J0696; J1630; J1644; J2060; J7030

== ENCOUNTER 2021-04-08 22:20 | Emergency (ER) | payer MEDICARE, SELFPAY ==
[2021-04-08 22:27] VITALS: BP 142/60; PULSE 102; RESP 18; TEMP 36.7; O2SAT 93
[2021-04-08 23:21] LABS: Basophils Absolute Auto 0.1 K/mm3 (0.0-0.1); Basophils Percent Auto 1.9 % (0.2-1.2); Eosinophils Absolute Auto 0.2 K/mm3 (0-0.3); Hematocrit 36.5 % (37.0-47.0); Hemoglobin 11.4 g/dL (12.0-15.0); Immature Granulocyte Absolute 0.04 K/mm3 (0.00-0.031); Immature Granulocyte Percent A 0.7 % (0-0.5); Lymphocytes Absolute Auto 0.77 K/mm3 (0.9-3.2); Lymphocytes Percent Auto 13.3 % (18.3-44.2); Mean Corpuscular HGB Conc 31.2 g/dl (32-36); Mean Corpuscular Hemoglobin 28.6 pg (26-34); Mean Corpuscular Volume 91.5 fl (80-100); Mean Platelet Volume 8.4 fl (7.4-10.4); Monocytes Absolute Auto 0.5 K/mm3 (0.1-0.6); Monocytes Percent Auto 9.3 % (2.6-8.5); Neutrophils Absolute Auto 4.1 K/mm3 (1.3-6.7); Neutrophils Percent Auto 70.8 % (45.5-73.1); Platelet Count Result 390 k/mm3 (150-375); Red Blood Count 3.99 M/mm3 (4.2-5.4); Red Cell Distribution Width 14.8 % (11.5-14.5); White Blood Count 5.8 K/mm3 (4.5-10.0)
[2021-04-08 23:36] LABS: Anion Gap 7 mmol/L (8-16); Blood Urea Nitrogen 12 mg/dL (7-17); Calcium 9.4 mg/dL (8.4-10.2); Carbon Dioxide 26 mmol/L (22-30); Chloride 107 mmol/L (98-107); Estimated CRCL calculation 52 ml/min; Estimated Glomerular Filt Rate > 60; Glucose 116 mg/dL (65-105); Potassium 3.4 mmol/L (3.4-5.0); Sodium 140 mmol/L (137-145)
[2021-04-09 00:36] VITALS: BP 137/60; PULSE 95; RESP 18; O2SAT 97
[2021-04-09 01:15] VITALS: BP 145/58; PULSE 87; RESP 18; O2SAT 100
--- NOTE | 2021-04-09 01:41 | ED.GENADULT ---
HPI - General Adult General Chief complaint: Unspecified Stated complaint: hallucinations Time Seen by Provider: 04/08/21 22:32 History of Present Illness HPI narrative: Patient is a 75-year-old female who presents the ER for concern for hallucinations by her [place] [facility]. Patient was discharged 3 hours prior to arrival from the same hospital. She had been treated here for UTI as well as urinary retention and decompensation of her mental illness. She was discharged with a Vital in place for urinary retention and has follow-up scheduled for 04/[address] Claros. Patient pulled her own Vital catheter because she was unaware that she had follow-up with Dr. Claros. She does not endorse any visual or auditory hallucinations. Related Data Home Medications Medication Instructions Recorded Confirmed duloxetine 60 mg PO BID 03/19/21 04/03/21 levothyroxine 50 mcg PO DAILY 03/19/21 04/03/21 trazodone 150 mg PO HS 03/19/21 04/03/21 valacyclovir 1,000 mg PO DAILY 03/19/21 04/03/21 Allergies Allergy/AdvReac Type Severity Reaction Status Date / Time codeine Allergy Unknown sensitive Verified 04/03/21 18:54 lovastatin Allergy Unknown Joint Pain Verified 04/03/21 18:54 morphine Allergy Unknown Itching Verified 04/03/21 18:54 risperidone Allergy Unknown NOt right Verified 04/03/21 18:54 rosuvastatin Allergy Unknown Joint Pain Verified 04/03/21 18:54 Sulfa (Sulfonamide Allergy Unknown ITCHING Verified 04/03/21 18:54 Antibiotics) carbamazepine AdvReac Unknown Nausea Verified 04/03/21 18:54 divalproex sodium [Depakote] AdvReac Unknown manic Verified 04/03/21 18:54 gemfibrozil AdvReac Unknown Nausea Verified 04/03/21 18:54 oxycodone AdvReac Unknown Dizziness Verified 04/03/21 18:54 phenazopyridine AdvReac Unknown Nausea Verified 04/03/21 18:54 prednisone AdvReac Unknown manic Verified 04/03/21 18:54 topiramate AdvReac Unknown Nausea Verified 04/03/21 18:54 Review of Systems Review of Systems: All systems reviewed & are unremarkable except as noted in HPI and below Constitutional: Constitutional: Denies chills and Denies fever(s) Gastrointestinal: Gastrointestinal: Denies abdominal pain, Denies belching, Denies nausea and Denies vomiting Genitourinary: Genitourinary: Denies dysuria, Denies flank pain and Denies urinary incontinence Psychiatric: Psychiatric: Denies anxiety, Denies depression and Denies paranoia [facility] Past Medical History Medical History Bipolar disorder with psychotic features Chronic anemia Depression with anxiety Gastroesophageal reflux disease Hypertension Hypothyroidism Obsessive compulsive personality disorder Single seizure Stress incontinence in female Surgical History Surgical History History of back surgery History of bunionectomy History of cataract extraction History of hysterectomy History of suburethral sling procedure History of tonsillectomy Family History Family History Mother Family history of Alzheimer's disease Patient's mother is Father Patient's father is Other Depression Family history of cardiovascular disease Family history of malignant neoplasm of breast in first degree relative Social History Social History Social History: Surrogate decision maker: ?[employer]? or friend Kelly Reich (a fellow [employer] member). Code status: Full code. Smoking packs per day: 1 Smoking cigarettes per day: 20.0 Years smoked: 5 Smoking pack-years: 5.00 Smoking status: Never smoker Tobacco type: cigarettes Second hand tobacco smoke exposure: No Smoking end date: 10/07/75 Alcohol intake: never Substance use: never Substance use type: does not use Additional living arrangements comments: [facility]
--- NOTE | 2021-04-09 02:10 | PC.NURSE ---
called [facility] to request transport. ETA [id number] [facility], [facility] and [facility] not available tonight.
[2021-04-09 02:15] VITALS: BP 142/61; PULSE 93; RESP 18; O2SAT 100
[2021-04-09 03:15] VITALS: BP 146/56; PULSE 89; RESP 16; O2SAT 95
[2021-04-09 04:15] VITALS: BP 150/55; PULSE 90; RESP 15; O2SAT 99
--- NOTE | 2021-04-09 04:51 | PC.NURSE ---
awaiting ems for transport.
--- NOTE | 2021-04-09 05:19 | PC.NURSE ---
called [facility] for ETA update. ETA [id number]
[2021-04-09 05:20] VITALS: BP 166/84; PULSE 99; RESP 20; O2SAT 95
--- NOTE | 2021-04-09 06:48 | PC.NURSE ---
called [facility] for ETA update. ETA [id number]
--- NOTE | 2021-04-09 07:22 | PC.NURSE ---
[facility] has arrived and is aware of where pt is being transferred to
--- NOTE | 2021-04-09 07:32 | PC.NURSE ---
[facility] ARRIVD TO TRANSPORT PT [facility]. REPORT GIVEN. DISCHARGE PACKET GIVEN TO EMS. ALL QUESTIONS ANSWERED. PT RESTING IN BED ALERT WITH UNGER IN PLACE. NO S/S OD DISTRESS
== END 2021-04-09 07:33 ==
PROVIDERS: Emergency Provider Emergency Medicine; PCP Family Medicine
DX: T83.021A Displacement of indwelling urethral catheter, initial encounter (principal); F31.9 Bipolar disorder, unspecified; D64.9 Anemia, unspecified; F41.9 Anxiety disorder, unspecified; K21.9 Gastro-esophageal reflux disease without esophagitis; I10 Essential (primary) hypertension; E03.9 Hypothyroidism, unspecified
CPT/HCPCS: 36415; 80048; 80307; 82040; 83036; 85025; 86850; 86900; 86901; 87070; 99283

== ENCOUNTER 2021-05-03 22:11 | Emergency (ER) | payer MEDICARE, SELFPAY ==
--- NOTE | ~2021-05-03 | CT_ITS ---
EXAMINATION: CT brain wo con INDICATION: Head injury COMPARISON: 04/07/2021 TECHNIQUE: Standard unenhanced head CT. The dose-length product (DLP) was 605.33 mGy-cm. The mA was a djusted according to patient size. Iterative reconstruction technique was employed. FINDINGS: There is right periorbital soft tissue swelling. There is no acute intraparenchymal hemorrh age. No evidence of mass lesion. No evidence of acute infarction. There is mild periventricular and s ubcortical hypodensity probably related to small vessel ischemic disease. There is mild prominence of the sulci and ventricles related to cerebral atrophy. Intracranial calcified cerebral atherosclerosi s is noted. There are no extra-axial collections. There is no mass effect or midline shift. Changes i n the globes are likely from ocular lens surgery. The visualized sinuses and mastoid air cells are we ll aerated. IMPRESSION: 1. Right periorbital hematoma without acute intracranial abnormality. 2. Age related findings. Reviewed, dictated and finalized at location A.
--- NOTE | ~2021-05-03 | CT_ITS ---
EXAMINATION: CT cervical spine wo con DATE: 05/03/2021 22:38 INDICATION: Neck pain, head injury TECHNIQUE: Computed tomography (CT) of the cervical spine was performed without intravenous contrast. The dose-length product (DLP) was 605.33 mGy-cm. Automated exposure control and iterative reconstruc tion technique were employed. COMPARISON: None FINDINGS: There is no fracture. There are 2 mm of anterolisthesis of C4 on C5 and 1 mm of retrolisthe sis of C5 on C6. The odontoid is intact. The vertebral body heights are maintained. There is severe l oss of intervertebral disc space height at C4-5 and C5-6. There is moderate multilevel facet and unco vertebral joint osteoarthritis. The prevertebral soft tissues are normal. There is a moderate amount of ingested material in the visualized portion of the upper esophagus. IMPRESSION: 1. Severe cervical spondylosis at C4-5 and C5-6 without acute findings. Reviewed, dictated and finalized at location A.
--- NOTE | ~2021-05-03 | XR_ITS ---
EXAMINATION: XR chest 1V portable INDICATION: Chest pain after fall TECHNIQUE: Portable AP chest at 2237 hours COMPARISON: 03/19/2021 FINDINGS: The lungs are free of acute opacities. There is no pleural effusion or pneumothorax. The ca rdiomediastinal silhouette is normal. IMPRESSION: 1. No acute cardiopulmonary abnormality. Reviewed, dictated and finalized at location A.
[2021-05-03 22:13] VITALS: BP 142/70; PULSE 95; RESP 20; TEMP 36.4; O2SAT 98
--- NOTE | 2021-05-03 22:14 | ED.FALL ---
HPI - Fall General Chief Complaint: Fall <Arcenio Regalado DO - Last Filed: 05/03/21 22:56> Stated Complaint: fall out of wheelchair <Arcenio eRgalado DO - Last Filed: 05/03/21 22:56> Time Seen by Provider: 05/03/21 22:13 <Arcenio Regalado DO - Last Filed: 05/03/21 22:56> Source: RN notes reviewed <Arcenio Regalado DO - Last Filed: 05/03/21 22:56> History of Present Illness HPI Narrative: Patient presents to emergency department from [facility] for a fall. Patient states that she was trying to get out of her wheelchair to go to the bathroom with assistance from staff member and that she began to move too fast and fell forward striking her head patient has swelling and ecchymosis over the right eyebrow she denies loss of consciousness she denies any other trauma or injury denies any other pain at this time per EMS the fall was witnessed <Arcenio Regalado DO - Last Filed: 05/03/21 22:56> Related Data Home Medications: Home Medications Medication Instructions Recorded Confirmed duloxetine 60 mg PO BID 03/19/21 05/03/21 levothyroxine 50 mcg PO DAILY 03/19/21 05/03/21 trazodone 150 mg PO HS 03/19/21 04/03/21 valacyclovir 1,000 mg PO DAILY 03/19/21 04/03/21 <Arcenio Regalado DO - Last Filed: 05/03/21 22:56> Allergies/Adverse Reactions: Allergies Allergy/AdvReac Type Severity Reaction Status Date / Time codeine Allergy Unknown sensitive Verified 05/03/21 22:19 lovastatin Allergy Unknown Joint Pain Verified 05/03/21 22:19 morphine Allergy Unknown Itching Verified 05/03/21 22:19 risperidone Allergy Unknown NOt right Verified 05/03/21 22:19 rosuvastatin Allergy Unknown Joint Pain Verified 05/03/21 22:19 Sulfa (Sulfonamide Allergy Unknown ITCHING Verified 05/03/21 22:19 Antibiotics) carbamazepine AdvReac Unknown Nausea Verified 05/03/21 22:19 divalproex sodium [Depakote] AdvReac Unknown manic Verified 04/03/21 18:54 gemfibrozil AdvReac Unknown Nausea Verified 05/03/21 22:19 oxycodone AdvReac Unknown Dizziness Verified 05/03/21 22:19 phenazopyridine AdvReac Unknown Nausea Verified 04/03/21 18:54 prednisone AdvReac Unknown manic Verified 04/03/21 18:54 topiramate AdvReac Unknown Nausea Verified 04/03/21 18:54 <Arcenio Regalado DO - Last Filed: 05/03/21 22:56> Review of Systems Review of Systems: Gen.: Denies fevers or chills Eyes: Denies eye pain or visual change ENT: Reports facial pain Respiratory: Denies shortness of breath CV: Denies chest pain GI: Denies abdominal pain nausea, emesis Musculoskeletal: Denies back pain or muscle pain Neuro: Reports headache denies loss of consciousness Skin: Denies rash Except as documented, all other systems reviewed and negative <Arceino Regalado DO - Last Filed: 05/03/21 22:56> [facility] Past Medical History Medical History: Medical History Bipolar disorder with psychotic features Chronic anemia Depression with anxiety Gastroesophageal reflux disease Hypertension Hypothyroidism Obsessive compulsive personality disorder Single seizure Stress incontinence in female <Arcenio Regalado DO - Last Filed: 05/03/21 22:56> Surgical History Surgical History: Surgical History History of back surgery History of bunionectomy History of cataract extraction History of hysterectomy History of suburethral sling procedure History of tonsillectomy <Arcenio Regalado DO - Last Filed: 05/03/21 22:56> Family History Family History: Family History Mother Family history of Alzheimer's disease Patient's mother is Father Patient's father is Other Depression Family history of cardiovascular disease Family history of malignant neoplasm of breast in first degree relative <DO Bucky Stiles
--- NOTE | 2021-05-03 23:28 | PC.NURSE ---
Report called to Carly at [facility].
[2021-05-03 23:36] VITALS: BP 123/67; PULSE 92; RESP 16; O2SAT 97
[2021-05-04 01:26] VITALS: BP 146/64; PULSE 91; RESP 16; O2SAT 96
== END 2021-05-04 01:42 | disposition home or self-care (01) ==
PROVIDERS: Emergency Provider Emergency Medicine; PCP Family Medicine
DX: S00.83XA Contusion of other part of head, initial encounter (principal); F31.9 Bipolar disorder, unspecified; D64.9 Anemia, unspecified; K21.9 Gastro-esophageal reflux disease without esophagitis; I10 Essential (primary) hypertension; E03.9 Hypothyroidism, unspecified; W05.0XXA Fall from non-moving wheelchair, initial encounter
CPT/HCPCS: 70450; 71045; 72125; 99284

== ENCOUNTER 2021-05-08 01:43 | Emergency (ER) | payer MEDICARE, SELFPAY ==
--- NOTE | ~2021-05-08 | CT_ITS ---
EXAMINATION: CT facial bones wo con DATE: 05/08/2021 02:14 INDICATION: Fall. Nose pain. Patient on anticoagulant therapy. TECHNIQUE: Computed tomography (CT) of the facial bones and maxillofacial region was performed withou t intravenous contrast. Automated exposure control and iterative reconstruction technique were employ ed. Exam dose: 310.88 mGy-cm total exam DLP. COMPARISON: None. FINDINGS: Bilateral nasal plate fractures, minimally displaced, of undetermined age. There is soft tissue swelling and subcutaneous fat soft tissue infiltration consistent with hematoma in the right periorbital and maxillary areas. The frontozygomatic sutures and zygomatic arches and maxillary bones are intact. No orbital floor or wall fracture is evident. No other facial fracture is identified. The paranasal sinuses and mastoid air cells are normally developed and aerated. Incidental finding of mildly severe degenerative disc disease and mild anterolisthesis at C4-5 and se otilio degenerative disc disease and minimal retrolisthesis at C5-6. Prominent degenerative change at t he apophyseal joints throughout the cervical spine. Uncovertebral joint spurring at C4-5 and particul [place] C5-6. IMPRESSION: Bilateral nasal plate fractures of undetermined age; no other facial fracture Prominent degenerative changes of the cervical spine Reviewed, dictated and finalized at Location [facility]. Reviewed, dictated and finalized at location B. IMPRESSION: Bilateral nasal plate fractures of undetermined age; no other faci al fracture Prominent degenerative changes of the cervical spine
--- NOTE | ~2021-05-08 | CT_ITS ---
EXAMINATION: CT brain wo con DATE: 05/08/2021 02:14 INDICATION: Fall. Headache. Patient on anticoagulant therapy. TECHNIQUE: Computed tomography (CT) of the head was performed without intravenous contrast. The mA wa s adjusted according to patient size. Iterative reconstruction technique was employed. Exam dose: 60 5.33 mGy-cm total exam DLP. COMPARISON: 04/25/2021 CT brain FINDINGS: No intracranial mass lesion or hemorrhage or cerebrovascular accident. No midline shift or mass effect. No subdural or epidural hematoma. There is nonspecific diminished attenuation of the cerebral white matter, likely due to chronic small vessel ischemic change. Bilateral carotid siphon internal carotid artery calcifications are noted. No fracture or bone destruction of the cranial vault. Included paranasal sinuses and mastoid air cell s are normally developed and aerated. IMPRESSION: Cerebral atherosclerosis and chronic small vessel ischemic changes of the cerebral white matter No acute intracranial finding Reviewed, dictated and finalized at Location [facility]. Reviewed, dictated and finalized at location B.
--- NOTE | ~2021-05-08 | XR_ITS ---
EXAMINATION: XR knee RT 3V DATE: 05/08/2021 03:28 INDICATION: Right knee pain TECHNIQUE: Three views of the right knee were obtained. COMPARISON: 02/26/2018 FINDINGS: Alignment is normal. No fracture or osteochondral lesion. There is mild tricompartmental os teoarthritis characterized by tiny marginal osteophytes. No joint effusion/synovitis. There is mild anterior soft tissue swelling of the knee. IMPRESSION: 1. No acute osseous abnormality. Reviewed, dictated and finalized at location A.
[2021-05-08 01:46] VITALS: BP 130/98; PULSE 86; RESP 18; TEMP 35.8; O2SAT 98
[2021-05-08 04:05] VITALS: BP 104/53; PULSE 76; RESP 16; O2SAT 99
--- NOTE | 2021-05-08 04:41 | ED.GENADULT ---
HPI - General Adult General Chief complaint: Fall Stated complaint: fall out of bed Time Seen by Provider: 05/08/21 03:01 History of Present Illness HPI narrative: Is a 76-year-old female presents the emergency department chief complaint of fall and head injury. Patient is a resident of a local nursing facility and reports that she fell out of her bed. Patient denies loss of consciousness reports that she feels little tired and reports that she has pain on her right knee. Patient states that it is worse with movement and improved with rest patient is on a anticoagulant. Related Data Home Medications Medication Instructions Recorded Confirmed duloxetine 60 mg PO BID 03/19/21 05/03/21 levothyroxine 50 mcg PO DAILY 03/19/21 05/03/21 trazodone 150 mg PO HS 03/19/21 04/03/21 valacyclovir 1,000 mg PO DAILY 03/19/21 04/03/21 Allergies Allergy/AdvReac Type Severity Reaction Status Date / Time codeine Allergy Unknown sensitive Verified 05/03/21 22:19 lovastatin Allergy Unknown Joint Pain Verified 05/03/21 22:19 morphine Allergy Unknown Itching Verified 05/03/21 22:19 risperidone Allergy Unknown NOt right Verified 05/03/21 22:19 rosuvastatin Allergy Unknown Joint Pain Verified 05/03/21 22:19 Sulfa (Sulfonamide Allergy Unknown ITCHING Verified 05/03/21 22:19 Antibiotics) carbamazepine AdvReac Unknown Nausea Verified 05/03/21 22:19 divalproex sodium [Depakote] AdvReac Unknown manic Verified 04/03/21 18:54 gemfibrozil AdvReac Unknown Nausea Verified 05/03/21 22:19 oxycodone AdvReac Unknown Dizziness Verified 05/03/21 22:19 phenazopyridine AdvReac Unknown Nausea Verified 04/03/21 18:54 prednisone AdvReac Unknown manic Verified 04/03/21 18:54 topiramate AdvReac Unknown Nausea Verified 04/03/21 18:54 Review of Systems Review of Systems: A 10 system review of systems was completed on the patient and is negative except for what is stated in the HPI. Nursing and ancillary documentation was reviewed. [facility] Past Medical History Medical History Bipolar disorder with psychotic features Chronic anemia Depression with anxiety Gastroesophageal reflux disease Hypertension Hypothyroidism Obsessive compulsive personality disorder Single seizure Stress incontinence in female Surgical History Surgical History History of back surgery History of bunionectomy History of cataract extraction History of hysterectomy History of suburethral sling procedure History of tonsillectomy Family History Family History Mother Family history of Alzheimer's disease Patient's mother is Father Patient's father is Other Depression Family history of cardiovascular disease Family history of malignant neoplasm of breast in first degree relative Social History Social History Social History: Surrogate decision maker: ?[employer]? or friend Kelly Reich (a fellow taoist member). Code status: Full code. Smoking packs per day: 1 Smoking cigarettes per day: 20.0 Years smoked: 5 Smoking pack-years: 5.00 Smoking status: Never smoker Tobacco type: cigarettes Second hand tobacco smoke exposure: No Smoking end date: 10/07/75 Alcohol intake: never Substance use: never Substance use type: does not use Additional living arrangements comments: The patient lives in an apartment in [place]. She has no children. 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 Exam Narrative: GENERAL: Well-appearing, well-nourished, and in no acute distress. HEAD: Normocephalic, atraumatic. EYES: PERRLA and EOMI. there is bruising around the right orbit ENT: Nares clear, no rhinorrhea or epistaxis. Mucous membranes moist. NE
[2021-05-08 04:58] VITALS: BP 125/67; PULSE 80; RESP 13; O2SAT 100
--- NOTE | 2021-05-08 05:25 | PC.NURSE ---
called [facility] to request transport. ETA [phone]
--- NOTE | 2021-05-08 06:50 | PC.NURSE ---
[facility] here.
== END 2021-05-08 06:56 ==
PROVIDERS: Emergency Provider Emergency Medicine; PCP Family Medicine
DX: S05.11XA Contusion of eyeball and orbital tissues, right eye, initial encounter (principal); S80.01XA Contusion of right knee, initial encounter; S09.90XA Unspecified injury of head, initial encounter; F31.9 Bipolar disorder, unspecified; D64.9 Anemia, unspecified; F41.8 Other specified anxiety disorders; K21.9 Gastro-esophageal reflux disease without esophagitis; I10 Essential (primary) hypertension; E03.9 Hypothyroidism, unspecified; F42.9 Obsessive-compulsive disorder, unspecified; Z98.49 Cataract extraction status, unspecified eye; Z87.891 Personal history of nicotine dependence; Z79.02 Long term (current) use of antithrombotics/antiplatelets; I67.2 Cerebral atherosclerosis; N39.3 Stress incontinence (female) (male); W06.XXXA Fall from bed, initial encounter
CPT/HCPCS: 70450; 70486; 73562; 99284

== ENCOUNTER 2021-06-13 00:02 | Inpatient (IN) | payer MEDICARE, SELFPAY ==
[2021-06-13] VITALS (23 sets, daily range): BP systolic 119–157; BP diastolic 55–86; PULSE 54–99; RESP 16–20; TEMP 35.9–37.2; O2SAT 94–100; BMI 26.8
--- NOTE | ~2021-06-13 | XR_ITS ---
EXAMINATION: XR chest 1V DATE: 06/13/2021 00:40 INDICATION: Transient alteration of awareness. TECHNIQUE: A single frontal view of the chest was obtained. COMPARISON: Chest single view 05/03/2021, chest CT 12/15/2019 FINDINGS: There is mild atelectasis in the lower lung zones. No pleural effusion or pneumothorax. The heart size is normal. IMPRESSION: 1. Mild atelectasis in the lower lung zones. Reviewed, dictated and finalized at location A.
--- NOTE | ~2021-06-13 | CT_ITS ---
EXAMINATION: CT brain wo con DATE: 06/13/2021 00:38 INDICATION: Confusion. TECHNIQUE: Computed tomography (CT) of the head was performed without intravenous contrast. The mA wa s adjusted according to patient size. Iterative reconstruction technique was employed. The dose-lengt h product was 605.33 mGy-cm. COMPARISON: Head CT 05/08/2021, brain MRI 09/02/2019 FINDINGS: There are scattered areas of low attenuation in the cerebral white matter. There is no intr acranial hemorrhage, acute infarction, or abnormal intracranial mass lesion. The ventricles are mario l in size. There are likely changes of ocular lens replacement surgeries. There is mild mucosal thick ening in the ethmoid sinuses. The mastoid air cells are normal. IMPRESSION: 1. Stable mild nonspecific cerebral white matter disease, which likely represents chronic small vesse l ischemic disease. Reviewed, dictated and finalized at location A. IMPRESSION: 1. Stable mild nonspecific cerebral white matter disease, which likely represen ts chronic small vessel ischemic disease.
--- NOTE | 2021-06-13 00:12 | ECG_ITS ---
Measurements Intervals [place] Rate: 91 P: 39 MO: 168 QRS: -9 QRSD: 91 T: 59 QT: 376 QTc: 464 Interpretive Statements SINUS RHYTHM EARLY PRECORDIAL R/S TRANSITION BASELINE ARTIFACT- I, II, III, AVR, AVL BORDERLINE ECG Electronically Signed On 06-13-2021 5:24:00 CDT by Seamus Ross D.O.
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
[2021-06-13 01:03] LABS: Basophils Absolute Auto 0.1 K/mm3 (0.0-0.1); Basophils Percent Auto 0.7 % (0.2-1.2); Eosinophils Absolute Auto 0.3 K/mm3 (0-0.3); Eosinophils Percent Auto 3.9 % (0-4.4); Hematocrit 42.4 % (37.0-47.0); Hemoglobin 12.9 g/dL (12.0-15.0); Immature Granulocyte Absolute 0.02 K/mm3 (0.00-0.031); Immature Granulocyte Percent A 0.2 % (0-0.5); Immature Platelet Fraction Pct 3.2 % (0.9-11.2); Lymphocytes Absolute Auto 1.49 K/mm3 (0.9-3.2); Lymphocytes Percent Auto 16.9 % (18.3-44.2); Mean Corpuscular HGB Conc 30.4 g/dl (32-36); Mean Corpuscular Hemoglobin 28.2 pg (26-34); Mean Corpuscular Volume 92.8 fl (80-100); Mean Platelet Volume 9.5 fl (7.4-10.4); Monocytes Absolute Auto 0.7 K/mm3 (0.1-0.6); Monocytes Percent Auto 8.2 % (2.6-8.5); Neutrophils Absolute Auto 6.2 K/mm3 (1.3-6.7); Neutrophils Percent Auto 70.1 % (45.5-73.1); Platelet Count Result 323 k/mm3 (150-375); Red Blood Count 4.57 M/mm3 (4.2-5.4); Red Cell Distribution Width 14.7 % (11.5-14.5); White Blood Count 8.8 K/mm3 (4.5-10.0)
[2021-06-13 01:11] LABS: INR 0.9; Prothrombin Time 12.2 Seconds (11.1-14.7)
[2021-06-13 01:12] LABS: Alanine Aminotransferase 15 U/L (4-35); Albumin Level 4.5 g/dL (3.5-5.1); Alkaline Phosphatase 99 U/L (38-126); Anion Gap 12 mmol/L (8-16); Aspartate Amino Transferase 23 U/L (14-36); Bilirubin,Total 0.3 mg/dL (0.2-1.3); Blood Urea Nitrogen 17 mg/dL (7-17); Calcium 9.8 mg/dL (8.4-10.2); Carbon Dioxide 25 mmol/L (22-30); Chloride 104 mmol/L (98-107); Estimated CRCL calculation 53 ml/min; Estimated Glomerular Filt Rate > 60; Glucose 122 mg/dL (65-110); Partial Thromboplastin Time 24.3 SECONDS (22.3-36.8); Potassium 4.1 mmol/L (3.4-5.0); Sodium 141 mmol/L (137-145)
[2021-06-13 01:20] LABS: Lithium 0.5 mmol/L (0.6-1.2)
[2021-06-13 03:44] LABS: Add Urine Microscopic? YES; Appearance Urine Clear (Clear); Bilirubin Urine Negative (Negative); Color Urine Yellow (Yellow); Glucose Urine UA Negative (Negative); Ketones Urine Negative (Negative); Leukocyte Esterase Ur 1+ LEU/UL (Negative); Mucus Urine Rare /lpf; Nitrate Urine Positive (Negative); Protein Urine Negative (Negative); Specific Grav Ur 1.016 (1.001-1.035); Urobilinogen Urine Negative mg/dL (<2.0); WBC Urine 31-50 /hpf
[2021-06-13 04:05] LABS: Blood Urine Negative (Negative)
[2021-06-13 05:32] LABS: Lactic Acid Reflex 1.9 mmol/L (0.7-2.1)
--- NOTE | 2021-06-13 06:13 | ADMGEN ---
This patient, Rachelle Trinidad, was admitted to 2 Medical Room 257-01. Patient/family oriented to hospital policies and general routines including ID bracelet, bed and alarms, visiting hours, pain management, procedures, bathroom and other care routines, personal items, smoking policy, room service/diet, and visiting hours. Information on how to activate the Rapid Response Team has been discussed. Patient/Family are encouraged to report perceived risks to care and to ask questions if they do not understand what they are told or what they should do.
[2021-06-13] MEDS: ENOXAPARIN 40 MG/0.4 ML SYRINGE SUB-Q (09:54)
--- NOTE | 2021-06-13 14:47 | PM.IMHP ---
H&P: HPI History of Present Illness Date/Time: 06/13/21 14:47 Chief Complaint: Polyuria Narrative: patient is a 76-year-old lady with history of depression, thyroid disease, insomnia presenting with altered mentation from [facility] -although she disputes this. Per [facility] staff, patient was disorderly in the halls and behaving erratically, and so they called to have her sent to the hospital. According to patient, this was a misunderstanding, related to a charge nurse, who she has had problems with in the past. At the time of the interview, patient is alert and oriented x4, and has no cognitive impairment. She does endorse polyuria, and urinating several times in an hour. There is no dysuria, hematuria, lower abdominal pain, fever or chills. There is no nausea or vomiting. No systemic signs to indicate sepsis or pyelonephritis. Past medical history: Insomnia, depression, thyroid disease Allergies: Several, including morphine and codeine Medications: [place], thyroid medication, trazodone Social history: Denies any drug alcohol or tobacco use Surgeries: August of last year, had urology procedure on bladder, sling? ER course: CT head, chest x-ray unremarkable; some left axis deviation but otherwise unremarkable EKG, some nonspecific ST changes in inferior leads; 1+ leukocyte esterase and urine; hemoglobin 11.4 Review of Systems Review of Systems: All systems reviewed & are unremarkable except as noted in HPI and below PMFSH Past Medical History Medical History Bipolar disorder with psychotic features Chronic anemia Depression with anxiety Gastroesophageal reflux disease Hypertension Hypothyroidism Obsessive compulsive personality disorder Single seizure Stress incontinence in female Surgical History Surgical History History of back surgery History of bunionectomy History of cataract extraction History of hysterectomy History of suburethral sling procedure History of tonsillectomy Family History Family History Mother Family history of Alzheimer's disease Patient's mother is Father Patient's father is Other Depression Family history of cardiovascular disease Family history of malignant neoplasm of breast in first degree relative Social History Social History Social History: Surrogate decision maker: ?[employer]? or friend Kelly Reich (a fellow islam member). Code status: Full code. Smoking packs per day: 1 Smoking cigarettes per day: 20.0 Years smoked: 5 Smoking pack-years: 5.00 Smoking status: Never smoker Tobacco type: cigarettes Smoking end date: 10/07/75 Additional smoking assessment comments: QUIT 1975 Alcohol intake: never Substance use: never Substance use type: does not use Additional living arrangements comments: The patient lives in an apartment in [place]. She has no children. 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 Sexual Orientation (if Verbalized by the Patient): . Spiritual care concerns: No Meds Home Medications and Allergies Home Medications Medication Instructions Recorded Confirmed Type omeprazole 40 mg capsule,delayed 40 mg PO DAILY #90 cap 12/14/19 06/13/21 Rx release lithium carbonate 300 mg capsule 300 mg PO BID #180 cap 05/02/20 06/13/21 Rx clonazepam 2 mg tablet 2 mg PO Q12H #180 tablet 11/04/20 06/13/21 Rx lamotrigine 150 mg tablet 150 mg PO BID #180 tablet 03/16/21 06/13/21 Rx duloxetine 60 mg PO BID 03/19/21 06/13/21 History levothyroxine 50 mcg PO DAILY 03/19/21 06/13/21 History trazodone 150 mg PO HS 03/19/21 06/13/21 History valacyclovir 1,000 mg PO DAILY 03/19/21 06/13/21 History Allergies
[2021-06-13] MEDS: lamoTRIgine 25 MG TABLET 50 MG PO (16:45)
[2021-06-13] MEDS: LITHIUM CARBONATE 300 MG CAPSULE PO (16:45)
[2021-06-13] MEDS: lamoTRIgine 100 MG TABLET PO (16:45)
[2021-06-13] MEDS: clonazePAM (*CRX) 0.5 MG TABLET 2 MG PO (20:45)
[2021-06-13] MEDS: DULoxetine HCL 60 MG CAPSULE.DR PO (20:45)
[2021-06-13] MEDS: traZODone HCL 50 MG TABLET 150 MG PO (20:45)
[2021-06-14] MEDS: LEVOTHYROXINE SODIUM 50 MCG TABLET PO (05:26)
[2021-06-14 05:57] LABS: Basophils Absolute Auto 0.1 K/mm3 (0.0-0.1); Eosinophils Absolute Auto 0.3 K/mm3 (0-0.3); Eosinophils Percent Auto 4.4 % (0-4.4); Hematocrit 40.9 % (37.0-47.0); Hemoglobin 12.4 g/dL (12.0-15.0); Immature Granulocyte Absolute 0.01 K/mm3 (0.00-0.031); Immature Granulocyte Percent A 0.2 % (0-0.5); Lymphocytes Percent Auto 21.4 % (18.3-44.2); Mean Corpuscular HGB Conc 30.3 g/dl (32-36); Mean Corpuscular Hemoglobin 27.7 pg (26-34); Mean Corpuscular Volume 91.5 fl (80-100); Mean Platelet Volume 8.8 fl (7.4-10.4); Monocytes Absolute Auto 0.6 K/mm3 (0.1-0.6); Monocytes Percent Auto 9.9 % (2.6-8.5); Neutrophils Absolute Auto 3.8 K/mm3 (1.3-6.7); Neutrophils Percent Auto 63.1 % (45.5-73.1); Platelet Count Result 296 k/mm3 (150-375); Red Blood Count 4.47 M/mm3 (4.2-5.4); Red Cell Distribution Width 14.6 % (11.5-14.5); White Blood Count 6.1 K/mm3 (4.5-10.0)
[2021-06-14 06:00] VITALS: BP 124/72; PULSE 88; RESP 18; TEMP 36.3; O2SAT 96
[2021-06-14 06:02] LABS: Alanine Aminotransferase 14 U/L (4-35); Albumin Level 3.9 g/dL (3.5-5.1); Alkaline Phosphatase 100 U/L (38-126); Anion Gap 8 mmol/L (8-16); Aspartate Amino Transferase 21 U/L (14-36); Bilirubin,Total 0.4 mg/dL (0.2-1.3); Blood Urea Nitrogen 13 mg/dL (7-17); Calcium 9.7 mg/dL (8.4-10.2); Carbon Dioxide 26 mmol/L (22-30); Chloride 109 mmol/L (98-107); Estimated CRCL calculation 46 ml/min; Estimated Glomerular Filt Rate > 60; Glucose 112 mg/dL (65-110); Magnesium 2.4 mg/dL (1.6-2.3); Phosphorus 4.1 mg/dL (2.5-4.5); Potassium 3.8 mmol/L (3.4-5.0); Sodium 143 mmol/L (137-145)
[2021-06-14] MEDS: clonazePAM (*CRX) 0.5 MG TABLET 2 MG PO ×2 (09:19→21:07)
[2021-06-14] MEDS: LITHIUM CARBONATE 300 MG CAPSULE PO ×2 (09:19→17:00)
[2021-06-14] MEDS: lamoTRIgine 25 MG TABLET 50 MG PO ×2 (09:19→17:00)
[2021-06-14] MEDS: DULoxetine HCL 60 MG CAPSULE.DR PO ×2 (09:19→21:06)
[2021-06-14] MEDS: ENOXAPARIN 40 MG/0.4 ML SYRINGE SUB-Q (09:19)
[2021-06-14] MEDS: lamoTRIgine 100 MG TABLET PO ×2 (09:20→17:00)
--- NOTE | 2021-06-14 10:45 | PC.NURSE ---
Patient states she has not been able to void since last night. States she has tried several times this morning without success. Patient feels the urge to void but cannot. Bladder scanned patient and noted 600-700 ml urine in bladder per bladder scanner. Notified Dr. Robert of same. Orders received to insert sutton catheter.
--- NOTE | 2021-06-14 12:38 | PM.IMPN ---
Progress Note: A&P Assessment and Plan (1) Acute UTI: Code(s): N39.0 - Urinary tract infection, site not specified Status: Acute Assessment and Plan: 1+ leukocyte esterase in urinalysis Consistent with symptoms of polyuria Enterobacter cloacae growing in urine, susceptibilities pending-will narrow from ceftriaxone to p.o. antibiotics based on sensitivity results Monitor for systemic symptoms-at this time pyelonephritis or sepsis seem unlikely (2) Bipolar disorder: Code(s): F31.9 - Bipolar disorder, unspecified Status: Acute Assessment and Plan: continue lamotrigine and lithium (3) Altered mental status: Code(s): R41.82 - Altered mental status, unspecified Status: Acute Assessment and Plan: patient has some sort of paranoid disorder, although she is alert and oriented x4 and aware of medical condition, she is under the delusion that she may be being held hostage at her half-way, and that the people running at our wanted by the [employer] government. Also believes that she is going to stay at the home of her primary care provider. Head CT showing chronic changes above is likely related to dementia continue current psychiatric medications, and close follow-up as an outpatient. (4) Anxiety: Code(s): F41.9 - Anxiety disorder, unspecified Status: Acute Assessment and Plan: will continue clonazepam for now, as do not want to stop abruptly However as discussed with patient, would ideally taper, as it is not ideal for her to be on a benzodiazepine in her age group (5) Depression: Code(s): F32.9 - Major depressive disorder, single episode, unspecified Status: Acute Assessment and Plan: no thoughts of self-harm, feels at baseline Continue duloxetine and trazodone (6) Hypothyroid: Code(s): E03.9 - Hypothyroidism, unspecified Status: Acute Assessment and Plan: continue levothyroxine from home Additional Plan Patient's cystitis improving, and symptoms are close to baseline. However she continues to suffer from paranoid delusion that she is being held hostage at half-way, and that administrators of sed half-way are wanted by the [employer]. Likely related to some sort of dementia. She is on several psychiatric medications which we will continue, but she would benefit from formal evaluation by psychiatrist again when she is back at half-way. Care coordination involved to see if they would be willing to take her, and to discuss with her other options regarding placement. Time Spent With Patient Time with patient: less than 15 minutes Subjective Date/time seen: 06/14/21 12:38 patient improves essential resolution of abdominal pain, no significant breathing difficulties or chest pain. Review of Systems Review of Systems: All systems reviewed & are unremarkable except as noted in HPI and below Exam Const: General: no acute distress Neck: Neck: no JVD Resp: Effort & Inspection: normal respiratory effort Auscultation: clear to auscultation bilaterally Cardio: Rate: regular rate Rhythm: regular rhythm GI: GI Palp: Yes Soft to palpation and No Tenderness to palpation present (GI) Objective Data Vital Signs Vital Signs: Vital Signs - 24 hr 06/13/21 14:00 06/13/21 22:00 06/14/21 06:00 Temperature 98.1 F 97.0 F L 97.4 F L Pulse Rate 97 93 88 Respiratory Rate 18 16 18 Blood Pressure 139/72 119/55 L 124/72 Pulse Oximetry 95 94 96 Intake/Output Intake/Output: Intake & Output 06/11/21 06/12/21 06/13/21 06/14/21 23:59 23:59 23:59 23:59 Intake Total 490 1050 Output Total 700 Balance 490 350 Meds/Results Medications: Active Medications Generic Name Dose Route Start Last Admin Trade Name Freq PRN Reason Stop Dose Admin Clonazepam 2 mg 06/13/21 21:00 06/14/21 09:19 Clonazepam (*Crx) 0.5 Mg Tablet PO 2 mg Q12HR QUITA Administration Duloxetine
[2021-06-14 14:58] VITALS: BP 116/50; PULSE 96; RESP 16; TEMP 36.7; O2SAT 95
[2021-06-14] MEDS: traZODone HCL 50 MG TABLET 150 MG PO (21:06)
[2021-06-14 21:42] VITALS: BP 124/49; PULSE 94; RESP 16; TEMP 37.5; O2SAT 94
[2021-06-15 05:34] VITALS: BP 121/62; PULSE 80; RESP 16; TEMP 36.3; O2SAT 96
[2021-06-15 06:18] LABS: Basophils Percent Auto 0.6 % (0.2-1.2); Eosinophils Absolute Auto 0.4 K/mm3 (0-0.3); Eosinophils Percent Auto 6.6 % (0-4.4); Hematocrit 38.7 % (37.0-47.0); Hemoglobin 11.6 g/dL (12.0-15.0); Immature Granulocyte Absolute 0.01 K/mm3 (0.00-0.031); Immature Granulocyte Percent A 0.2 % (0-0.5); Lymphocytes Absolute Auto 1.34 K/mm3 (0.9-3.2); Lymphocytes Percent Auto 25.2 % (18.3-44.2); Mean Corpuscular Hemoglobin 27.4 pg (26-34); Mean Corpuscular Volume 91.3 fl (80-100); Mean Platelet Volume 8.9 fl (7.4-10.4); Monocytes Absolute Auto 0.6 K/mm3 (0.1-0.6); Monocytes Percent Auto 10.4 % (2.6-8.5); Platelet Count Result 293 k/mm3 (150-375); Red Blood Count 4.24 M/mm3 (4.2-5.4); Red Cell Distribution Width 14.4 % (11.5-14.5); White Blood Count 5.3 K/mm3 (4.5-10.0)
[2021-06-15 06:58] LABS: Alanine Aminotransferase 13 U/L (4-35); Albumin Level 3.7 g/dL (3.5-5.1); Alkaline Phosphatase 82 U/L (38-126); Anion Gap 8 mmol/L (8-16); Aspartate Amino Transferase 18 U/L (14-36); Bilirubin,Total 0.3 mg/dL (0.2-1.3); Blood Urea Nitrogen 14 mg/dL (7-17); Calcium 9.1 mg/dL (8.4-10.2); Carbon Dioxide 23 mmol/L (22-30); Chloride 107 mmol/L (98-107); Estimated CRCL calculation 46 ml/min; Estimated Glomerular Filt Rate > 60; Glucose 97 mg/dL (65-110); Magnesium 2.3 mg/dL (1.6-2.3); Phosphorus 4.1 mg/dL (2.5-4.5); Potassium 3.7 mmol/L (3.4-5.0); Sodium 138 mmol/L (137-145)
[2021-06-15] MEDS: LEVOTHYROXINE SODIUM 50 MCG TABLET PO (07:41)
[2021-06-15] MEDS: clonazePAM (*CRX) 0.5 MG TABLET 2 MG PO ×2 (09:18→20:20)
[2021-06-15] MEDS: DULoxetine HCL 60 MG CAPSULE.DR PO ×2 (09:18→20:20)
[2021-06-15] MEDS: lamoTRIgine 100 MG TABLET PO ×2 (09:18→16:00)
[2021-06-15] MEDS: ENOXAPARIN 40 MG/0.4 ML SYRINGE SUB-Q (09:18)
[2021-06-15] MEDS: lamoTRIgine 25 MG TABLET 50 MG PO ×2 (09:18→16:00)
[2021-06-15] MEDS: LITHIUM CARBONATE 300 MG CAPSULE PO ×2 (09:18→16:00)
--- NOTE | 2021-06-15 12:34 | PM.DS ---
DS: Admitting Diagnosis Discharge Date 06/15 Admitting Diagnosis Altered mentation DS: Discharge Diagnosis Discharge Diagnosis (1) Acute UTI: Code(s): N39.0 - Urinary tract infection, site not specified Status: Acute (2) Depression with anxiety: Code(s): F41.8 - Other specified anxiety disorders Status: Chronic (3) Dementia: Code(s): F03.90 - Unspecified dementia without behavioral disturbance Status: Acute DS: Summary Hospital Course Reason for hospitalization: erratic behavior long term Hospital Course: patient is a 76-year-old lady with history of bipolar disorder, depression, dementia presenting to [facility] for retic behavior at long term, where she is a long-term resident. Per long term staff there she was being loud and unruly in the hallway. Upon arrival, worked up for causes of altered mentation including but not limited to CT head, which did not show any acute etiology, although did show worsening chronic changes including small vessel ischemic disease. Potential cause of altered behavior may have been a UTI, which was treated with IV antibiotics which were transition to p.o. prior to discharge. Patient has waxing and waning dementia, although she is lucid, does occasionally become fixated on certain delusions, like that she plans to go to her physicians home and live with his family, Or that she is living in a facility where she is being held hostage. Will continue her psychiatric medications including Lamotrigine and trazodone on discharge. Would recommend taper of Klonopin, as may be associated with adverse outcomes in her age group. Mentation appears to be at baseline. Vital a stable, labs unremarkable. Physical exam benign. Care coordination has spoken with the facility and they are willing to accept her, and has also spoken with patient's power of prosecuting attorney, who informed team that plan is to send patient back to the facility that she came from, Which is where we will send her. Status at Discharge Functional status at discharge: uses cane/walker Overall status at discharge: patient is back to baseline Time Spent with Patient Time attestation: Total time spent providing and/or coordinating discharge services: Time spent: Less than 30 minutes Exam Const: General: no acute distress Neck: Neck: no JVD Resp: Effort & Inspection: normal respiratory effort Auscultation: clear to auscultation bilaterally Cardio: Rate: regular rate Rhythm: regular rhythm GI: GI Palp: Yes Soft to palpation and No Tenderness to palpation present (GI) DS: Data Data Completed and Pending Labs on day of discharge: Labs from last 24 hours 06/15/21 06/15/21 05:53 05:53 WBC 5.3 RBC 4.24 Hgb 11.6 L Hct 38.7 MCV 91.3 MCH 27.4 MCHC 30.0 L RDW 14.4 Plt Count 293 MPV 8.9 Immature Gran % (Auto) 0.2 Neut % (Auto) 57.0 Lymph % (Auto) 25.2 [place] % (Auto) 10.4 H Eos % (Auto) 6.6 H Baso % (Auto) 0.6 Lymph # (Auto) 1.34 [place] # (Auto) 0.6 Eos # (Auto) 0.4 H Baso # (Auto) 0.0 Abs Immat Gran (auto) 0.01 Absolute Neuts (auto) 3.0 Absolute Nucleated RBC 0.0 Nucleated RBC % 0.0 Sodium 138 Potassium 3.7 Chloride 107 Carbon Dioxide 23 Anion Gap 8 BUN 14 Creatinine 0.80 Estim Creat Clear Calc 46 Estimated GFR > 60 Glucose 97 Calcium 9.1 Phosphorus 4.1 Magnesium 2.3 Total Bilirubin 0.3 AST 18 ALT 13 Alkaline Phosphatase 82 Total Protein 6.0 L Albumin 3.7 Preliminary micro results at discharge 06/13/21 05:01 Blood Culture - Preliminary Blood 06/13/21 05:01 Blood Culture - Preliminary Blood Discharge Plan Discharge Attending physician on discharge: Yanna Robert Discharging Clinician: aYnna Robert Anticipated Discharge Date/Time: 06/15/21 12:33 Patient Disposition: SNF Activity: no straining, no driving, as tolerated and follow weight bearing statu
[2021-06-15 14:00] VITALS: BP 99/48; PULSE 91; RESP 16; TEMP 36.8; O2SAT 97
[2021-06-15 19:35] VITALS: BP 115/57; PULSE 94; RESP 17; TEMP 36.7; O2SAT 96
[2021-06-15] MEDS: traZODone HCL 50 MG TABLET 150 MG PO (20:21)
[2021-06-16 03:48] VITALS: BP 114/56; PULSE 82; RESP 17; TEMP 36.4; O2SAT 96
[2021-06-16] MEDS: LEVOTHYROXINE SODIUM 50 MCG TABLET PO (05:52)
[2021-06-16] MEDS: levoFLOXacin 250 MG TABLET PO (09:23)
[2021-06-16] MEDS: lamoTRIgine 25 MG TABLET 50 MG PO ×2 (09:23→17:34)
[2021-06-16] MEDS: lamoTRIgine 100 MG TABLET PO ×2 (09:23→17:34)
[2021-06-16] MEDS: DULoxetine HCL 60 MG CAPSULE.DR PO ×2 (09:23→20:23)
[2021-06-16] MEDS: LITHIUM CARBONATE 300 MG CAPSULE PO ×2 (09:23→17:34)
[2021-06-16] MEDS: ENOXAPARIN 40 MG/0.4 ML SYRINGE SUB-Q (09:26)
[2021-06-16] MEDS: clonazePAM (*CRX) 0.5 MG TABLET 2 MG PO ×2 (09:26→20:23)
[2021-06-16 14:00] VITALS: BP 104/60; PULSE 92; RESP 18; TEMP 36.8; O2SAT 94
--- NOTE | 2021-06-16 15:33 | PM.IMPN ---
Progress Note: A&P Assessment and Plan (1) Acute UTI: Code(s): N39.0 - Urinary tract infection, site not specified Status: Acute (2) Depression with anxiety: Code(s): F41.8 - Other specified anxiety disorders Status: Chronic (3) Dementia: Code(s): F03.90 - Unspecified dementia without behavioral disturbance Status: Acute (4) Urinary retention: Code(s): R33.9 - Retention of urine, unspecified Status: Acute (5) Bipolar disorder with psychotic features: Code(s): F31.9 - Bipolar disorder, unspecified Status: Acute (6) Hypothyroidism: Code(s): E03.9 - Hypothyroidism, unspecified Status: Acute Additional Plan Patient with altered mental status related to UTI and her underlying dementia. Continue Levaquin. TSH was normal in March. Continue levothyroxine. Continue mood stabilizing medications with lithium and Lamictal. [place] level was 0.5 on admission. Continue her antidepressant medications with Cymbalta, trazodone and Klonopin. Urine retention may be related to her prolonged bed rest. Increase activity today. Awaiting placement. Continue Lovenox for DVT prophylaxis. Subjective Date/time seen: 06/16/21 15:33 Interval history: 76yo female with bipolar disorder here for altered mental status. Assuming care. Chart reviewed. She had uriine retention of 600mL last night requiring In/out cath. No Cp or SOB. no cough. No n/v. She was not discharged yesterday b/c NH refused to take her back. Exam Narrative: AF 98.2 104/60 92 18 94% ra Gen - NARD Chest - CTA bilaterally, nml RR CV - RRR S1/S2 Abd - Soft, NT/ND, Positive BS Ext - No pedal edema Psych - Nml mood and affect Skin - Warm and dry Objective Data Vital Signs Vital Signs: Vital Signs - 24 hr 06/15/21 19:35 06/16/21 03:48 06/16/21 14:00 Temperature 98.1 F 97.6 F 98.2 F Pulse Rate 94 82 92 Respiratory Rate 17 17 18 Blood Pressure 115/57 L 114/56 L 104/60 Pulse Oximetry 96 96 94 Intake/Output Intake/Output: Intake & Output 06/13/21 06/14/21 06/15/21 06/16/21 23:59 23:59 23:59 23:59 Intake Total 490 1590 1030 890 Output Total 2702 5810 1300 Balance 490 50 -257 -564 Meds/Results Medications: Active Medications Generic Name Dose Route Start Last Admin Trade Name Adrian PRN Reason Stop Dose Admin Clonazepam 2 mg 06/13/21 21:00 06/16/21 09:26 Clonazepam (*Crx) 0.5 Mg Tablet PO 2 mg Q12HR QUITA Administration Duloxetine HCl 60 mg 06/13/21 21:00 06/16/21 09:23 Duloxetine Hcl 60 Mg Capsule.Dr PO 60 mg Q12HR QUITA Administration Enoxaparin Sodium 40 mg 06/13/21 09:00 06/16/21 09:26 Enoxaparin 40 Mg/0.4 Ml Syringe SUB-Q 40 mg DAILY QUITA Administration Lamotrigine 50 mg 06/13/21 17:00 06/16/21 09:23 Lamotrigine 25 Mg Tablet PO 07/13/21 16:59 50 mg BID QUITA Administration Lamotrigine 100 mg 06/13/21 17:00 06/16/21 09:23 Lamotrigine 100 Mg Tablet PO 07/13/21 16:59 100 mg BID QUITA Administration Levofloxacin 250 mg 06/16/21 09:00 06/16/21 09:23 Levofloxacin 250 Mg Tablet PO 06/18/21 08:59 250 mg DAILY QUITA Administration Levothyroxine Sodium 50 mcg 06/14/21 06:30 06/16/21 05:52 Levothyroxine Sodium 50 Mcg Tablet PO 50 mcg DAILY@0630 QUITA Administration [place] Carbonate 300 mg 06/13/21 17:00 06/16/21 09:23 [place] Carbonate 300 Mg Capsule PO 300 mg BIDWM QUITA Administration Trazodone HCl 150 mg 06/13/21 21:00 06/15/21 20:21 Trazodone Hcl 50 Mg Tablet PO 150 mg HS QUITA Administration Radiology Results: ITS Impressions Head CT 06/13/21 06:38 IMPRESSION: 1. Stable mild nonspecific cerebral white matter disease, which likely represents chronic small vessel ischemic disease. Chest X-Ray 06/13/21 07:05 IMPRESSION: 1. Mild atelectasis in the lower lung zones.
[2021-06-16] MEDS: traZODone HCL 50 MG TABLET 150 MG PO (20:23)
[2021-06-16 21:43] VITALS: BP 141/71; PULSE 99; RESP 18; TEMP 36.7; O2SAT 98
[2021-06-17 05:57] VITALS: BP 109/51; PULSE 77; RESP 18; TEMP 36.8; O2SAT 95
[2021-06-17] MEDS: LEVOTHYROXINE SODIUM 50 MCG TABLET PO (06:20)
[2021-06-17] MEDS: lamoTRIgine 25 MG TABLET 50 MG PO ×2 (09:28→17:01)
[2021-06-17] MEDS: lamoTRIgine 100 MG TABLET PO ×2 (09:28→17:01)
[2021-06-17] MEDS: LITHIUM CARBONATE 300 MG CAPSULE PO ×2 (09:28→17:02)
[2021-06-17] MEDS: clonazePAM (*CRX) 0.5 MG TABLET 2 MG PO ×2 (09:28→20:54)
[2021-06-17] MEDS: levoFLOXacin 250 MG TABLET PO (09:28)
[2021-06-17] MEDS: DULoxetine HCL 60 MG CAPSULE.DR PO ×2 (09:28→20:54)
[2021-06-17] MEDS: ENOXAPARIN 40 MG/0.4 ML SYRINGE SUB-Q (09:28)
--- NOTE | 2021-06-17 11:04 | PM.IMPN ---
Progress Note: A&P Assessment and Plan (1) Acute UTI: Code(s): N39.0 - Urinary tract infection, site not specified Status: Acute Assessment and Plan: Pt is being treated for Acute UTIinfection Enterobacter cloacae growing in urine, Pt is currently on levaquin was previously on rocephin. Rpt UA tomorrow. (2) Depression with anxiety: Code(s): F41.8 - Other specified anxiety disorders Status: Chronic Assessment and Plan: Continue pts own mood stabilizing medications with lithium and Lamictal. Continue pt own antidepressant medications with Cymbalta, trazodone and Klonopin (3) Dementia: Code(s): F03.90 - Unspecified dementia without behavioral disturbance Status: Acute Assessment and Plan: Continue pts own mood stabilizing medications with lithium and Lamictal. Continue pt own antidepressant medications with Cymbalta, trazodone and Klonopin (4) Urinary retention: Code(s): R33.9 - Retention of urine, unspecified Status: Acute Assessment and Plan: Pt to participate in PT (5) Bipolar disorder with psychotic features: Code(s): F31.9 - Bipolar disorder, unspecified Status: Acute Assessment and Plan: Continue pts own mood stabilizing medications with lithium and Lamictal. Continue pt own antidepressant medications with Cymbalta, trazodone and Klonopin. Pt is awaiting placement. (6) Hypothyroidism: Code(s): E03.9 - Hypothyroidism, unspecified Status: Acute Assessment and Plan: Continue patients own levothyroxine. Subjective Date/time seen: 06/17/21 11:04 Interval history: 76yo female with bipolar disorder here for altered mental status early dementia or psychosis. Pt here for UTI. Awaiting placement. Today pt is calm and relaxed in hospital, talkative, eager to be discharged. Review of Systems Review of Systems: All systems reviewed & are unremarkable except as noted in HPI and below Exam Const: General: cooperative and healthy appearing; No in distress Nutritional Appearance: overweight Orientation/consciousness: oriented to person HENMT: Head: normal to inspection Resp: Effort & Inspection: no respiratory distress Auscultation: no rhonchi and no wheezes Cardio: Rate: regular rate Rhythm: regular rhythm GI: Inspection: normal to inspection GI Palp: No abdominal tenderness, No Guarding due to palpation present (GI) and No Hepatomegaly present Auscultation: normal bowel sounds Neuro: General: oriented to person Objective Data Vital Signs Vital Signs: Vital Signs - 24 hr 06/16/21 14:00 06/16/21 21:43 06/17/21 05:57 Temperature 36.8 C 36.7 C 36.8 C Pulse Rate 92 99 77 Respiratory Rate 18 18 18 Blood Pressure 104/60 141/71 H 109/51 L Pulse Oximetry 94 98 95 Intake/Output Intake/Output: Intake & Output 06/14/21 06/15/21 06/16/21 06/17/21 23:59 23:59 23:59 23:59 Intake Total 1590 1030 890 740 Output Total 1575 1850 1800 350 Balance 15 -857 -319 390 Meds/Results Medications: Active Medications Generic Name Dose Route Start Last Admin Trade Name Freq PRN Reason Stop Dose Admin Clonazepam 2 mg 06/13/21 21:00 06/17/21 09:28 Clonazepam (*Crx) 0.5 Mg Tablet PO 2 mg Q12HR QUITA Administration Duloxetine HCl 60 mg 06/13/21 21:00 06/17/21 09:28 Duloxetine Hcl 60 Mg Capsule.Dr PO 60 mg Q12HR QUITA Administration Enoxaparin Sodium 40 mg 06/13/21 09:00 06/17/21 09:28 Enoxaparin 40 Mg/0.4 Ml Syringe SUB-Q 40 mg DAILY QUITA Administration Lamotrigine 50 mg 06/13/21 17:00 06/17/21 09:28 Lamotrigine 25 Mg Tablet PO 07/13/21 16:59 50 mg BID QUITA Administration Lamotrigine 100 mg 06/13/21 17:00 06/17/21 09:28 Lamotrigine 100 Mg Tablet PO 07/13/21 16:59 100 mg BID QUITA Administration Levofloxacin 250 mg 06/16/21 09:00 06/17/21 09:28 Levofloxacin 250 Mg Tablet PO 06/18/21 08:59 250 mg DAILY QUITA Administration Levothyroxine Sodium
[2021-06-17 14:15] VITALS: BP 110/75; PULSE 81; RESP 16; TEMP 36.1; O2SAT 100
[2021-06-17] MEDS: traZODone HCL 50 MG TABLET 150 MG PO (20:54)
[2021-06-17 21:32] VITALS: BP 121/51; PULSE 84; RESP 16; TEMP 36.6; O2SAT 96
[2021-06-17 23:25] LABS: Add Urine Microscopic? NO; Appearance Urine Clear (Clear); Bilirubin Urine Negative (Negative); Blood Urine Negative (Negative); Color Urine Straw (Yellow); Glucose Urine UA Negative (Negative); Ketones Urine Negative (Negative); Leukocyte Esterase Ur Negative LEU/UL (Negative); Nitrate Urine Negative (Negative); Protein Urine Negative (Negative); Specific Grav Ur 1.009 (1.001-1.035); Urobilinogen Urine Negative mg/dL (<2.0)
[2021-06-18 06:00] VITALS: BP 112/52; PULSE 80; RESP 18; TEMP 36.4; O2SAT 93
[2021-06-18] MEDS: LEVOTHYROXINE SODIUM 50 MCG TABLET PO (06:28)
[2021-06-18] MEDS: lamoTRIgine 25 MG TABLET 50 MG PO ×2 (08:49→16:35)
[2021-06-18] MEDS: lamoTRIgine 100 MG TABLET PO ×2 (08:49→16:35)
[2021-06-18] MEDS: DULoxetine HCL 60 MG CAPSULE.DR PO ×2 (08:49→21:25)
[2021-06-18] MEDS: LITHIUM CARBONATE 300 MG CAPSULE PO ×2 (08:49→16:35)
[2021-06-18] MEDS: ENOXAPARIN 40 MG/0.4 ML SYRINGE SUB-Q (08:49)
[2021-06-18] MEDS: clonazePAM (*CRX) 0.5 MG TABLET 2 MG PO ×2 (08:50→21:25)
--- NOTE | 2021-06-18 10:01 | PM.IMPN ---
Progress Note: A&P Assessment and Plan (1) Acute UTI: Code(s): N39.0 - Urinary tract infection, site not specified Status: Acute Assessment and Plan: Pt is being treated for Acute UTIinfection Enterobacter cloacae growing in urine, Pt is currently on levaquin was previously on rocephin. Rpt UA pending, WCC is Nl, BC is negative. Hopeful DC tomorrow to placement. (2) Depression with anxiety: Code(s): F41.8 - Other specified anxiety disorders Status: Chronic Assessment and Plan: Pt is on the own mood stabilizing medications with lithium and Lamictal. Pt is on her own antidepressant medications with Cymbalta, trazodone and Klonopin (3) Dementia: Code(s): F03.90 - Unspecified dementia without behavioral disturbance Status: Acute Assessment and Plan: Pt is on the own mood stabilizing medications with lithium and Lamictal. Pt is on her own antidepressant medications with Cymbalta, trazodone and Klonopin (4) Urinary retention: Code(s): R33.9 - Retention of urine, unspecified Status: Resolved Assessment and Plan: Pt ordered (5) Bipolar disorder with psychotic features: Code(s): F31.9 - Bipolar disorder, unspecified Status: Acute Assessment and Plan: Pt is on the own mood stabilizing medications with lithium and Lamictal. Pt is on her own antidepressant medications with Cymbalta, trazodone and Klonopin. Pt is awaiting placement. (6) Hypothyroidism: Code(s): E03.9 - Hypothyroidism, unspecified Status: Acute Assessment and Plan: Continue patients own levothyroxine. Subjective Date/time seen: 06/18/21 10:01 Interval history: 76yo female with bipolar disorder here for altered mental status early dementia or psychosis. Pt here for UTI. Awaiting placement. Today pt is quite delusional talking about the mulligan family and the taliban. POA talking to placement facility today and dealing with payment. Hopeful placement by tomorrow. Otherwise pt is pleasant and well appearing. Review of Systems Review of Systems: All systems reviewed & are unremarkable except as noted in HPI and below Exam Const: General: cooperative, healthy appearing and no acute distress; No in distress Nutritional Appearance: overweight Orientation/consciousness: oriented to person HENMT: Head: normal to inspection Resp: Effort & Inspection: no respiratory distress Auscultation: clear to auscultation bilaterally, no rhonchi and no wheezes Cardio: Rate: regular rate Rhythm: regular rhythm GI: Inspection: normal to inspection Auscultation: normal bowel sounds Neuro: General: oriented to person Psych: Mental Status: other (Delusional about Kylie lópez she is going home with Mulligan family ) Objective Data Vital Signs Vital Signs: Vital Signs - 24 hr 06/17/21 14:15 06/17/21 21:32 06/18/21 06:00 Temperature 36.1 C L 36.6 C 36.4 C Pulse Rate 81 84 80 Respiratory Rate 16 16 18 Blood Pressure 110/75 121/51 L 112/52 L Pulse Oximetry 100 96 93 Intake/Output Intake/Output: Intake & Output 06/15/21 06/16/21 06/17/21 06/18/21 23:59 23:59 23:59 23:59 Intake Total 8697 680 2083 420 Output Total 1850 1800 1650 700 Balance -820 -910 -30 -280 Meds/Results Medications: Active Medications Generic Name Dose Route Start Last Admin Trade Name Freq PRN Reason Stop Dose Admin Clonazepam 2 mg 06/13/21 21:00 06/18/21 08:50 Clonazepam (*Crx) 0.5 Mg Tablet PO 2 mg Q12HR QUITA Administration Duloxetine HCl 60 mg 06/13/21 21:00 06/18/21 08:49 Duloxetine Hcl 60 Mg Capsule.Dr PO 60 mg Q12HR QUITA Administration Enoxaparin Sodium 40 mg 06/13/21 09:00 06/18/21 08:49 Enoxaparin 40 Mg/0.4 Ml Syringe SUB-Q 40 mg DAILY QUITA Administration Lamotrigine 50 mg 06/13/21 17:00 06/18/21 08:49 Lamotrigine 25 Mg Tablet PO 07/13/21 16:59 50 mg BID QUITA Administration Lamotrigine 100 mg 06/13/21 17:00
[2021-06-18 14:00] VITALS: BP 121/50; PULSE 96; RESP 21; TEMP 35.7; O2SAT 100
[2021-06-18] MEDS: traZODone HCL 50 MG TABLET 150 MG PO (21:25)
[2021-06-18 21:29] VITALS: BP 120/51; PULSE 80; RESP 18; TEMP 36.8; O2SAT 99
[2021-06-19 06:00] VITALS: BP 131/52; PULSE 88; RESP 16; TEMP 36.1; O2SAT 94
[2021-06-19] MEDS: LEVOTHYROXINE SODIUM 50 MCG TABLET PO (06:29)
[2021-06-19] MEDS: LITHIUM CARBONATE 300 MG CAPSULE PO (09:42)
[2021-06-19] MEDS: DULoxetine HCL 60 MG CAPSULE.DR PO (09:42)
[2021-06-19] MEDS: lamoTRIgine 25 MG TABLET 50 MG PO (09:42)
[2021-06-19] MEDS: clonazePAM (*CRX) 0.5 MG TABLET 2 MG PO (09:42)
[2021-06-19] MEDS: ENOXAPARIN 40 MG/0.4 ML SYRINGE SUB-Q (09:43)
[2021-06-19] MEDS: lamoTRIgine 100 MG TABLET PO (09:43)
--- NOTE | 2021-06-19 11:05 | PM.IMPN ---
Progress Note: A&P Assessment and Plan (1) Acute UTI: Code(s): N39.0 - Urinary tract infection, site not specified Status: Acute Assessment and Plan: Pt was admitted for acute UTI infection. UCx growing Enterobacter cloacae. Pttreated with Rocephin and then transitioned to levaquin. BCx NGTD. Completed abx course (2) Depression with anxiety: Code(s): F41.8 - Other specified anxiety disorders Status: Chronic Assessment and Plan: Pt is on the own mood stabilizing medications with lithium and Lamictal. Pt is on her own antidepressant medications with Cymbalta, trazodone and Klonopin (3) Dementia: Code(s): F03.90 - Unspecified dementia without behavioral disturbance Status: Acute Assessment and Plan: Patient with altered mental status on admission related to UTI and her underlying dementia. Stable. Mental status much improved. B12/folate/TSH were normal. (4) Urinary retention: Code(s): R33.9 - Retention of urine, unspecified Status: Resolved Assessment and Plan: Resolved. Patient voiding better now that she is more ambulatory. Keeping motivating her to be out of bed. (5) Bipolar disorder with psychotic features: Code(s): F31.9 - Bipolar disorder, unspecified Status: Acute Assessment and Plan: Pt is on the own mood stabilizing medications with lithium and Lamictal. Pt is on her own antidepressant medications with Cymbalta, trazodone and Klonopin. Mood stable. Follow (6) Hypothyroidism: Code(s): E03.9 - Hypothyroidism, unspecified Status: Acute Assessment and Plan: Continue patients own levothyroxine. Check TSH (7) DVT prophylaxis: Code(s): Z29.9 - Encounter for prophylactic measures, unspecified Status: Acute Assessment and Plan: Lovenox Subjective Date/time seen: 06/19/21 11:05 Interval history: 76yo female with bipolar disorder here for altered mental status. Resuming care. Chart reviewed. She feels well. No complains. Slept well last night. Eating well. No CP or SOB. Exam Narrative: AF 96.9 131/52 88 16 94% ra Gen - NARD Chest - CTA bilaterally, nml RR CV - RRR S1/S2 Abd - Soft, NT/ND, Positive BS Ext - No pedal edema Psych - Nml mood and affect Skin - Warm and dry Objective Data Vital Signs Vital Signs: Vital Signs - 24 hr 06/18/21 14:00 06/18/21 21:29 06/19/21 06:00 Temperature 96.3 F L 98.2 F 96.9 F L Pulse Rate 96 80 88 Respiratory Rate 21 H 18 16 Blood Pressure 121/50 L 120/51 L 131/52 L Pulse Oximetry 100 99 94 Intake/Output Intake/Output: Intake & Output 06/16/21 06/17/21 06/18/21 06/19/21 23:59 23:59 23:59 23:59 Intake Total 890 1620 1100 440 Output Total 1800 1491 374 8802 Balance -910 -30 400 -1360 Meds/Results Medications: Active Medications Generic Name Dose Route Start Last Admin Trade Name Freq PRN Reason Stop Dose Admin Clonazepam 2 mg 06/13/21 21:00 06/19/21 09:42 Clonazepam (*Crx) 0.5 Mg Tablet PO 2 mg Q12HR QUITA Administration Duloxetine HCl 60 mg 06/13/21 21:00 06/19/21 09:42 Duloxetine Hcl 60 Mg Capsule.Dr PO 60 mg Q12HR QUITA Administration Enoxaparin Sodium 40 mg 06/13/21 09:00 06/19/21 09:43 Enoxaparin 40 Mg/0.4 Ml Syringe SUB-Q 40 mg DAILY QUITA Administration Lamotrigine 50 mg 06/13/21 17:00 06/19/21 09:42 Lamotrigine 25 Mg Tablet PO 07/13/21 16:59 50 mg BID QUITA Administration Lamotrigine 100 mg 06/13/21 17:00 06/19/21 09:43 Lamotrigine 100 Mg Tablet PO 07/13/21 16:59 100 mg BID QUITA Administration Levothyroxine Sodium 50 mcg 06/14/21 06:30 06/19/21 06:29 Levothyroxine Sodium 50 Mcg Tablet PO 50 mcg DAILY@0630 QUITA Administration [place] Carbonate 300 mg 06/13/21 17:00 06/19/21 09:42 [place] Carbonate 300 Mg Capsule PO 300 mg BIDWM QUITA Administration Trazodone HCl 150 mg 06/13/21 21:00 06/18/21 21:25 Trazodone Hc
--- NOTE | 2021-06-19 12:14 | PM.DS ---
DS: Admitting Diagnosis Discharge Date 06/19/21 Admitting Diagnosis Agitation, polyuria DS: Discharge Diagnosis Discharge Diagnosis (1) Acute UTI: Code(s): N39.0 - Urinary tract infection, site not specified Status: Acute Assessment and Plan: Pt was admitted for acute UTI infection. UCx growing Enterobacter cloacae. Pt was treated with Rocephin and then transitioned to Levaquin. BCx NGTD. She completed abx course (2) Depression with anxiety: Code(s): F41.8 - Other specified anxiety disorders Status: Chronic Assessment and Plan: Pt is on mood stabilizing medications with lithium and Lamictal. Pt was continued on her antidepressant medications with Cymbalta, trazodone and Klonopin. (3) Dementia: Code(s): F03.90 - Unspecified dementia without behavioral disturbance Status: Acute Assessment and Plan: Patient with altered mental status on admission related to UTI and her underlying dementia. Mental status much improved. (4) Urinary retention: Code(s): R33.9 - Retention of urine, unspecified Status: Resolved Assessment and Plan: Resolved. Patient voiding better now that she is more ambulatory. Keeping motivating her to be out of bed. (5) Bipolar disorder with psychotic features: Code(s): F31.9 - Bipolar disorder, unspecified Status: Acute Assessment and Plan: As above (6) Hypothyroidism: Code(s): E03.9 - Hypothyroidism, unspecified Status: Acute Assessment and Plan: We continued patients own levothyroxine. DS: Summary Hospital Course Reason for hospitalization: 76yo female with bipolar disorder here for altered mental status. Please see H&P for details Hospital Course: Please see above for details of hospital course Status at Discharge Cognitive/behavioral status at discharge: stable Time Spent with Patient Time attestation: Total time spent providing and/or coordinating discharge services: 32 minutes Time spent: Greater than 30 minutes Exam Narrative: AF 96.9 131/52 88 16 94% ra Gen - NARD Chest - CTA bilaterally, nml RR CV - RRR S1/S2 Abd - Soft, NT/ND, Positive BS Ext - No pedal edema Psych - Nml mood and affect Skin - Warm and dry DS: Data Data Completed and Pending Labs on day of discharge: Labs from last 24 hours 06/19/21 06/19/21 11:46 11:46 Vitamin B12 Pending Folate Pending TSH (Reflex) Pending Discharge Plan Discharge Attending physician on discharge: Yanna Robert Discharging Clinician: Adan Sampson Anticipated Discharge Date/Time: 06/19/21 12:23 Patient Disposition: NH Skilled Nursing/Asst Living Activity: as tolerated Diet: regular Discharge Instructions: Encourage patient to be out of bed to the chair and walking in halls Monitor for evidence of urine retention with daily exams and bladder scans as needed. Follow up with the facility doctor Patient Instructions: Antibiotic Form, Levofloxacin (By mouth), Urinary Tract Infection in Women (GEN) Stand Alone Forms: General Discharge Information Follow-up/Referrals: Rigo Severino MD [Primary Care Provider] - Call for Appointment Discharge Medications: Continued duloxetine 60 mg capsule,delayed release(DR/EC) 60 mg PO BID RF: 0 levothyroxine 50 mcg tablet 50 mcg PO DAILY RF: 0 trazodone 150 mg tablet 150 mg PO HS RF: 0 Hold Instructions: Resume on 06/22/21. may have adverse reaction with antibiotic valacyclovir 1 gram tablet 1,000 mg PO DAILY RF: 0 omeprazole 40 mg capsule,delayed release(DR/EC) 40 mg PO DAILY Qty: 90 RF: 3 lithium carbonate 300 mg capsule 300 mg PO BID Qty: 180 RF: 3 clonazepam 2 mg tablet 2 mg PO Q12H Qty: 180 RF: 3 lamotrigine [Lamictal] 150 mg tablet 150 mg PO BID Qty: 180 RF: 0 Date of admission: 06/13/21 11:11 Primary Care Provider: Rigo Severino
[2021-06-19 13:25] LABS: Folic Acid 7.6 ng/mL (2.76->20)
[2021-06-19] MEDS: LORazepam (*CRX) 1 MG TABLET PO (13:31)
== END 2021-06-19 13:41 | DRG 690 ==
LOC: ANHED 04:38 → ANH3MEDSUR 04:42 → ANH2MED 05:22
PROVIDERS: Family Medicine; Internal Medicine; Admitting Provider Internal Medicine; Emergency Provider Emergency Medicine; PCP Family Medicine; Visit Provider Internal Medicine
DX: N39.0 Urinary tract infection, site not specified (principal); R33.9 Retention of urine, unspecified; B96.89 Other specified bacterial agents as the cause of diseases classified elsewhere; F03.90 Unspecified dementia, unspecified severity, without behavioral disturbance, psychotic disturbance, mood disturbance, and anxiety; F31.9 Bipolar disorder, unspecified; F41.8 Other specified anxiety disorders; F60.5 Obsessive-compulsive personality disorder; E03.9 Hypothyroidism, unspecified; K21.9 Gastro-esophageal reflux disease without esophagitis; I10 Essential (primary) hypertension; Z79.899 Other long term (current) drug therapy
CPT/HCPCS: 36415; 51701; 70450; 71045; 80053; 80178; 81001; 81003; 82607; 82746; 83605; 83735; 84100; 84443; 85025; 85055; 85610; 85730; 87040; 87077; 87086; 87088; 87186; 93005; 96365; 96372; 99285; A9270; G0378; J0696; J1650; J1956

== ENCOUNTER 2022-04-01 21:55 | Emergency (ER) | payer MEDICARE, SELFPAY ==
[2022-04-01] VITALS (16 sets, daily range): BP systolic 113–129; BP diastolic 68–103; PULSE 91–103; RESP 15–24; TEMP 36.9; O2SAT 91–96
--- NOTE | ~2022-04-01 | CT_ITS ---
EXAMINATION: CT cervical spine wo con DATE: 04/01/2022 22:47 INDICATION: Trauma TECHNIQUE: Computed tomography (CT) of the cervical spine was performed without intravenous contrast. Automated exposure control and iterative reconstruction technique were employed. Exam dose: 218.06 mGy-cm total exam DLP. COMPARISON: 05/03/2021 CT cervical spine FINDINGS: There is normal alignment at C1 and C2 and the odontoid process is intact. There is degener ative change at the apophyseal joints, particularly severe on the right. Prominent degenerative changes apophyseal joints at C3-4. Approximately 2.4 mm anterolisthesis and severe degenerative disc disease at C4-5. Moderate degenerat kim changes of the uncovertebral joints at C4-5, greater on the right. Severe degenerative disc disease and minimal retrolisthesis at C5-6. Prominent uncovertebral joint sp urring, especially on the right. No fracture or dislocation, locked facet or prevertebral soft tissue swelling. Since 05/03/2021 there is little interval change.. IMPRESSION: Extensive degenerative changes, relatively stable since 05/03/2021 No fracture, dislocation or locked facet Reviewed, dictated and finalized at [facility]. Reviewed, dictated and finalized at location [facility].
--- NOTE | ~2022-04-01 | XR_ITS ---
EXAMINATION: XR chest 1V portable DATE: 04/01/2022 22:21 INDICATION: COVID positive and hypertension presenting with and dizziness post fall TECHNIQUE: frontal view of the chest was obtained. COMPARISON: Chest radiograph dated 06/23/2021 FINDINGS: Streaky opacities at the bilateral lower lung zones and favor atelectasis over pneumonia. No pleural effusion or pneumothorax. The cardiomediastinal silhouette is normal. Callus formation about a healin g posterolateral right seventh rib fracture. IMPRESSION: 1. Streaky opacities at the bilateral lower lung zones which could represent atelectasis or less like ly pneumonia. Reviewed, dictated and finalized at location [facility]. IMPRESSION: 1. Streaky opacities at the bilateral lower lung zones which could represent at electasis or less likely pneumonia.
--- NOTE | ~2022-04-01 | CT_ITS ---
EXAMINATION: CT brain wo con DATE: 04/01/2022 22:47 INDICATION: Head injury TECHNIQUE: Computed tomography (CT) of the head was performed without intravenous contrast. The mA wa s adjusted according to patient size. Iterative reconstruction technique was employed. Exam dose: 60 5.33 mGy-cm total exam DLP. COMPARISON: 06/13/2021 CT brain FINDINGS: There is very prominent posterior right parietal cephalohematoma and some subcutaneous emph ysema consistent with laceration No coup or contra intracranial injury is identified. No intracranial mass lesion or hemorrhage or cerebrovascular accident. No midline shift or mass effec t. Normal ventricular size. No subdural or epidural hematoma. There are bilateral carotid siphon internal carotid arteries. There is nonspecific diminished attenua tion cerebral white matter, likely due to chronic small vessel ischemic changes. The mastoid air cells are normally developed and aerated on the left. There is effusion and a small n umber of lower right mastoid air cells; mastoid air cells and the right otherwise are normally develo ped and aerated. Included paranasal sinuses are clear. Bilateral hyperostosis frontalis interna, not likely of any clinical significance. No skull fracture or bone destruction is detected. IMPRESSION: Prominent right posterior parietal cephalohematoma and some subcutaneous emphysema; no s kull fracture or coup or contrecoup intracranial injury Cerebral atherosclerosis and chronic small vessel ischemic changes of the cerebral white matter Reviewed, dictated and finalized at [facility]. Reviewed, dictated and finalized at location [facility]. IMPRESSION: Prominent right posterior parietal cephalohematoma and some subcut aneous emphysema; no skull fracture or coup or contrecoup intracranial injury Cerebral atherosclerosis and chronic small vessel ischemic changes of the cereb ral white matter
--- NOTE | 2022-04-01 22:13 | ECG_ITS ---
Measurements Intervals [place] Rate: 95 P: 29 WY: 161 QRS: -15 QRSD: 92 T: 35 QT: 273 QTc: 345 Interpretive Statements SINUS RHYTHM EARLY PRECORDIAL R-WAVE TRANSITION COMPARED TO ECG 06/13/2021 00:27:27 NO SIGNIFICANT DIFFERENCE Electronically Signed On 04-02-2022 7:18:34 CDT by Rigo Lange M.D.
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
[2022-04-01 22:30] LABS: Basophils Absolute Auto 0.1 K/mm3 (0.0-0.1); Basophils Percent Auto 0.6 % (0.2-1.2); Eosinophils Absolute Auto 0.2 K/mm3 (0-0.3); Hematocrit 41.8 % (37.0-47.0); Hemoglobin 13.7 g/dL (12.0-15.0); Immature Granulocyte Absolute 0.05 K/mm3 (0.00-0.031); Immature Granulocyte Percent A 0.4 % (0-0.5); Lymphocytes Absolute Auto 2.39 K/mm3 (0.9-3.2); Lymphocytes Percent Auto 21.5 % (18.3-44.2); Mean Corpuscular HGB Conc 32.8 g/dl (32-36); Mean Corpuscular Hemoglobin 29.6 pg (26-34); Mean Corpuscular Volume 90.3 fl (80-100); Mean Platelet Volume 8.8 fl (7.4-10.4); Monocytes Percent Auto 8.7 % (2.6-8.5); Neutrophils Absolute Auto 7.4 K/mm3 (1.3-6.7); Neutrophils Percent Auto 66.8 % (45.5-73.1); Platelet Count Result 312 k/mm3 (150-375); Red Blood Count 4.63 M/mm3 (4.2-5.4); Red Cell Distribution Width 16.1 % (11.5-14.5); White Blood Count 11.1 K/mm3 (4.5-10.0)
[2022-04-01 22:44] LABS: Alanine Aminotransferase 14 U/L (6-35); Albumin Level 4.4 g/dL (3.5-5.1); Alkaline Phosphatase 84 U/L (38-126); Anion Gap 5 mmol/L (8-16); Aspartate Amino Transferase 26 U/L (14-36); Bilirubin,Total 0.4 mg/dL (0.2-1.3); Blood Urea Nitrogen 32 mg/dL (7-17); Calcium 9.7 mg/dL (8.4-10.2); Carbon Dioxide 23 mmol/L (22-30); Chloride 108 mmol/L (98-107); Estimated Glomerular Filt Rate > 60; Glucose 115 mg/dL (65-110); Magnesium 2.1 mg/dL (1.6-2.3); Potassium 3.4 mmol/L (3.4-5.0); Sodium 136 mmol/L (137-145)
[2022-04-01 22:52] LABS: NT Pro B Type Natriuretic Pept 70 pg/mL (5-100)
[2022-04-01 22:55] LABS: Troponin I < 0.012 ng/mL (0.000-0.034)
[2022-04-01 23:03] LABS: INR 1.1; Prothrombin Time 13.5 Seconds (11.1-14.7)
[2022-04-01 23:04] LABS: Partial Thromboplastin Time 26.3 SECONDS (22.3-36.8)
[2022-04-01] MEDS: TETANUS,DIPHTHERIA,AC PERTUSSIS ADULT (0.5 ML) BOOSTRIX IM (23:43)
[2022-04-02] VITALS (9 sets, daily range): BP systolic 116–125; BP diastolic 65–67; PULSE 90–92; RESP 14–22; O2SAT 92–95
--- NOTE | 2022-04-02 05:21 | PC.NURSE ---
[facility] here @ 4430 to transport pt.
== END 2022-04-02 01:40 ==
PROVIDERS: Emergency Provider Emergency Medicine; PCP Family Medicine
DX: S00.03XA Contusion of scalp, initial encounter (principal); Z23 Encounter for immunization; D64.9 Anemia, unspecified; K21.9 Gastro-esophageal reflux disease without esophagitis; I10 Essential (primary) hypertension; E03.9 Hypothyroidism, unspecified; F42.9 Obsessive-compulsive disorder, unspecified; N39.3 Stress incontinence (female) (male); F31.9 Bipolar disorder, unspecified; F41.8 Other specified anxiety disorders; Z86.16 Personal history of COVID-19; Z98.49 Cataract extraction status, unspecified eye; Z87.891 Personal history of nicotine dependence; W18.39XA Other fall on same level, initial encounter
CPT/HCPCS: 36415; 70450; 71045; 72125; 80053; 83735; 83880; 84484; 85025; 85610; 85730; 90471; 90715; 93005; 99284

== ENCOUNTER 2022-06-27 19:56 | Emergency (ER) | payer MEDICARE, SELFPAY ==
--- NOTE | ~2022-06-27 | XR_ITS ---
EXAMINATION: XR chest 1V portable Exam Date/Time: 06/27/2022 22:30 CDT HISTORY: TRANSIENT ALT OF AWARENESS Comparison: 04/01/2022. RESULT: Lines, tubes, and devices: None. Lungs and pleura: Senescent changes. Cardiomediastinal silhouette: Stable. Aortic ectasia. Other: No acute osseous or upper abdominal finding. Old right lateral rib fractures. IMPRESSION: No acute cardiopulmonary process. Reviewed, dictated and finalized at location [facility].
[2022-06-27 20:00] VITALS: BP 138/65; PULSE 90; RESP 16; TEMP 36.1; O2SAT 99
--- NOTE | 2022-06-27 20:18 | ED.PSYCH ---
HPI - Psych General Chief Complaint: Psychiatric Symptoms <Shashank Paul Barbara III, DO - Last Filed: 07/02/22 15:38> Stated Complaint: PSYCH/COMBATIVE <Shashank Paul Barbara III, DO - Last Filed: 07/02/22 15:38> Time Seen by Provider: 06/27/22 20:01 <Shashank Jimenez III, DO - Last Filed: 07/02/22 15:38> History of Present Illness HPI Narrative: Pt sent here from local [place] for psychotic and aggressive behavior. Pt is refusing meds and being aggressive toward staff. Pt is refusing to be evaluated or treated. <Shashank Jimenez III, DO - Last Filed: 07/02/22 15:38> Related Data Home Medications: Home Medications Medication Instructions Recorded Confirmed duloxetine 60 mg capsule,delayed 60 mg PO BID 03/19/21 06/13/21 release levothyroxine 50 mcg tablet 50 mcg PO DAILY 03/19/21 06/13/21 trazodone 150 mg tablet 150 mg PO HS 03/19/21 06/13/21 valacyclovir 1 gram tablet 1,000 mg PO DAILY 03/19/21 06/13/21 <Shashank Paul Jimenez III, DO - Last Filed: 07/02/22 15:38> Allergies/Adverse Reactions: Allergies Allergy/AdvReac Type Severity Reaction Status Date / Time codeine Allergy Unknown sensitive Verified 06/28/22 01:39 lovastatin Allergy Unknown Joint Pain Verified 06/28/22 01:39 morphine Allergy Unknown Itching Verified 06/28/22 01:39 risperidone Allergy Unknown NOt right Verified 06/28/22 01:39 rosuvastatin Allergy Unknown Joint Pain Verified 06/28/22 01:39 Sulfa (Sulfonamide Allergy Unknown ITCHING Verified 06/28/22 01:39 Antibiotics) carbamazepine AdvReac Unknown Nausea Verified 06/28/22 01:39 divalproex sodium [Depakote] AdvReac Unknown manic Verified 06/28/22 01:39 gemfibrozil AdvReac Unknown Nausea Verified 06/28/22 01:39 oxycodone AdvReac Unknown Dizziness Verified 06/28/22 01:39 phenazopyridine AdvReac Unknown Nausea Verified 06/28/22 01:39 prednisone AdvReac Unknown manic Verified 06/28/22 01:39 topiramate AdvReac Unknown Nausea Verified 06/28/22 01:39 <Shashank Jimenez III, DO - Last Filed: 07/02/22 15:38> Review of Systems Review of Systems: ROS unobtainable: Yes unobtainable due to mental status <Shashank Jimenez III, DO - Last Filed: 07/02/22 15:38> [facility] Past Medical History Medical History: Medical History Bipolar disorder with psychotic features Chronic anemia Depression with anxiety Gastroesophageal reflux disease Hypertension Hypothyroidism Obsessive compulsive personality disorder Single seizure Stress incontinence in female <Shashank Jimenez III, DO - Last Filed: 07/02/22 15:38> Surgical History Surgical History: Surgical History History of back surgery History of bunionectomy History of cataract extraction History of hysterectomy History of suburethral sling procedure History of tonsillectomy <Shashank Jimenez III, DO - Last Filed: 07/02/22 15:38> Family History Family History: Family History Mother Family history of Alzheimer's disease Patient's mother is Father Patient's father is Other Depression Family history of cardiovascular disease Family history of malignant neoplasm of breast in first degree relative <Shashank Jimenez III, DO - Last Filed: 07/02/22 15:38> Social History Social History: Social History Social History: Surrogate decision maker: ?[employer]? or friend Kelly Reich (a fellow [employer] member). Code status: Full code. Smoking packs per day: 1 Smoking cigarettes per day: 20.0 Years smoked: 5 Smoking pack-years: 5.00 Smoking status: Never smoker Tobacco type: cigarettes Smoking end date: 10/07/75 Alcohol intake: never Substance use: never Substance use type: does not use Additional livin
--- NOTE | 2022-06-27 20:25 | PC.NURSE ---
Asked pt. if I could draw blood on her. Patient stated, I have no blood my blood is mine, not yours, I have them sewed up to protect me. I am the Lord Savior and you are Satan . I asked the patient if she knew where she was at and the patient stated, we are at the end of times and you are going to hell to be with Satan . Left patient's room and notified the nurse.
[2022-06-27] MEDS: LORazepam INJ (*CRX) 2 MG/ML VIAL IM (20:31)
[2022-06-27] MEDS: HALOPERIDOL LACTATE 5 MG/ML VIAL IM (20:31)
[2022-06-27 20:43] LABS: Basophils Absolute Auto 0.1 K/mm3 (0.0-0.1); Basophils Percent Auto 0.9 % (0.2-1.2); Eosinophils Absolute Auto 0.2 K/mm3 (0-0.3); Eosinophils Percent Auto 2.7 % (0-4.4); Hematocrit 43.7 % (37.0-47.0); Hemoglobin 14.3 g/dL (12.0-15.0); Immature Granulocyte Absolute 0.02 K/mm3 (0.00-0.031); Immature Granulocyte Percent A 0.3 % (0-0.5); Lymphocytes Absolute Auto 2.38 K/mm3 (0.9-3.2); Lymphocytes Percent Auto 31.8 % (18.3-44.2); Mean Corpuscular HGB Conc 32.7 g/dl (32-36); Mean Corpuscular Hemoglobin 30.7 pg (26-34); Mean Corpuscular Volume 93.8 fl (80-100); Mean Platelet Volume 9.9 fl (7.4-10.4); Monocytes Absolute Auto 0.7 K/mm3 (0.1-0.6); Monocytes Percent Auto 8.8 % (2.6-8.5); Neutrophils Absolute Auto 4.2 K/mm3 (1.3-6.7); Neutrophils Percent Auto 55.5 % (45.5-73.1); Platelet Count Result 201 k/mm3 (150-375); Red Blood Count 4.66 M/mm3 (4.2-5.4); Red Cell Distribution Width 12.7 % (11.5-14.5); White Blood Count 7.5 K/mm3 (4.5-10.0)
[2022-06-27 22:12] LABS: SARS-CoV-2 RNA PCR Negative
[2022-06-27 23:22] LABS: Appearance Urine Clear (Clear); Bilirubin Urine Negative (Negative); Blood Urine Negative (Negative); Color Urine Yellow (Yellow); Glucose Urine UA Negative (Negative); Ketones Urine Negative (Negative); Leukocyte Esterase Ur Negative LEU/UL (Negative); Nitrate Urine Negative (Negative); Protein Urine Negative (Negative); Urobilinogen Urine 0.2 mg/dL (<2.0); pH Urine 6.5 (5.0-9.0)
[2022-06-27 23:25] LABS: Bacteria Urine Trace /hpf; Mucus Urine Rare /lpf; Squamous Epithelial Cell Urine Rare /hpf (Few)
[2022-06-27 23:30] LABS: Add Urine Microscopic? NO
[2022-06-27 23:38] LABS: Amphetamine Screen Urine Negative (Negative); Barbiturate Screen Urine Negative (Negative); Benzodiazepines Screen Urine Negative (Negative); Cannabinoid Screen Urine Negative (Negative); Cocaine Screen Urine Negative (Negative); Methadone Screen Urine Negative (Negative); Opiate Screen Urine Negative (Negative); Phencyclidine Screen Urine Negative (Negative)
--- NOTE | 2022-06-28 01:38 | PC.NURSE ---
Pt has been cooperative and calm and resting in bed at this time.
[2022-06-28 01:39] LABS: Alanine Aminotransferase 22 U/L (6-35); Albumin Level 3.7 g/dL (3.5-5.1); Alkaline Phosphatase 67 U/L (38-126); Anion Gap 12 mmol/L (8-16); Aspartate Amino Transferase 39 U/L (14-36); Bilirubin,Total 0.1 mg/dL (0.2-1.3); Blood Urea Nitrogen 18 mg/dL (7-17); Calcium 9.2 mg/dL (8.4-10.2); Carbon Dioxide 24 mmol/L (22-30); Chloride 107 mmol/L (98-107); Estimated CRCL calculation 66 ml/min; Estimated Glomerular Filt Rate > 60; Glucose 100 mg/dL (65-110); Potassium 3.2 mmol/L (3.4-5.0); Sodium 143 mmol/L (137-145)
== END 2022-06-28 04:10 ==
PROVIDERS: Emergency Medicine; Emergency Provider General Practice; PCP Family Medicine
DX: F91.8 Other conduct disorders (principal); I10 Essential (primary) hypertension; E03.9 Hypothyroidism, unspecified; F42.8 Other obsessive-compulsive disorder; F41.8 Other specified anxiety disorders; F31.9 Bipolar disorder, unspecified; K21.9 Gastro-esophageal reflux disease without esophagitis; N39.3 Stress incontinence (female) (male); Z87.891 Personal history of nicotine dependence; Z20.822 Contact with and (suspected) exposure to COVID-19; Z79.899 Other long term (current) drug therapy
CPT/HCPCS: 36415; 71045; 80053; 80307; 81003; 84443; 85025; 96372; 99284; C9803; J1630; J2060; U0003; U0005

== ENCOUNTER 2023-03-19 13:42 | Outpatient (NON) | payer MEDICARE, SELFPAY | END 2023-03-19 13:43 | disposition home or self-care (01) | LOC: ANHGOSHLAB 13:43 | PROVIDERS: PCP Family Medicine; Visit Provider Nurse Practitioner Family | DX: N39.3 Stress incontinence (female) (male) (principal); R33.9 Retention of urine, unspecified; N39.0 Urinary tract infection, site not specified | CPT/HCPCS: 87086; 87088 ==

== ENCOUNTER 2023-05-02 08:49 | Outpatient (CLI) | payer MEDICARE, SELFPAY ==
[2023-05-02 13:05] LABS: Basophils Absolute Auto 0.1 K/mm3 (0.0-0.1); Eosinophils Absolute Auto 0.2 K/mm3 (0-0.3); Eosinophils Percent Auto 2.8 % (0-4.4); Hematocrit 43.7 % (37.0-47.0); Immature Granulocyte Absolute 0.01 K/mm3 (0.00-0.031); Immature Granulocyte Percent A 0.2 % (0-0.5); Lymphocytes Absolute Auto 2.02 K/mm3 (0.9-3.2); Lymphocytes Percent Auto 33.1 % (18.3-44.2); Mean Corpuscular Hemoglobin 29.4 pg (26-34); Mean Corpuscular Volume 91.6 fl (80-100); Mean Platelet Volume 9.5 fl (7.4-10.4); Monocytes Absolute Auto 0.6 K/mm3 (0.1-0.6); Neutrophils Absolute Auto 3.2 K/mm3 (1.3-6.7); Neutrophils Percent Auto 52.9 % (45.5-73.1); Platelet Count Result 263 k/mm3 (150-375); Red Blood Count 4.77 M/mm3 (4.2-5.4); Red Cell Distribution Width 13.1 % (11.5-14.5); White Blood Count 6.1 K/mm3 (4.5-10.0)
[2023-05-02 13:13] LABS: Alanine Aminotransferase 23 U/L (6-35); Albumin Level 4.4 g/dL (3.5-5.1); Alkaline Phosphatase 79 U/L (38-126); Anion Gap 10 mmol/L (8-16); Aspartate Amino Transferase 32 U/L (14-36); Bilirubin,Total 0.5 mg/dL (0.2-1.3); Blood Urea Nitrogen 19 mg/dL (7-17); Calcium 9.8 mg/dL (8.4-10.2); Carbon Dioxide 27 mmol/L (22-30); Chloride 104 mmol/L (98-107); Cholesterol 237 mg/dL (0-200); Estimated Glomerular Filt Rate > 60; Glucose 97 mg/dL (65-110); HDL Direct 42 mg/dL; Potassium 4.5 mmol/L (3.4-5.0); Sodium 141 mmol/L (137-145); Triglycerides 281 mg/dL (<150)
[2023-05-02 13:24] LABS: LDL Cholesterol Direct 126 mg/dL
[2023-05-02 13:41] LABS: Free T4 Free Thyroxine 0.92 ng/mL (0.78-2.19)
== END 2023-05-02 08:50 | disposition home or self-care (01) ==
LOC: ANHGOSHLAB 08:51
PROVIDERS: PCP Family Medicine; Visit Provider Physician Assistant
DX: E03.9 Hypothyroidism, unspecified (principal); E66.9 Obesity, unspecified; F41.9 Anxiety disorder, unspecified; L65.9 Nonscarring hair loss, unspecified
CPT/HCPCS: 36415; 80053; 80061; 84439; 84443; 85025

== ENCOUNTER 2023-12-26 12:29 | Outpatient (CLI) | payer MEDICARE, SELFPAY ==
--- NOTE | ~2023-12-26 | CT_ITS ---
EXAMINATION: CT sinus wo con DATE: 12/26/2023 12:48 INDICATION: Chronic sinusitis TECHNIQUE: Computed tomography (CT) of the paranasal sinuses was performed without contrast. Iterativ e reconstruction technique was employed. Exam dose: 312.04 mGy-cm total exam DLP. COMPARISON: 04/01/2022 CT brain FINDINGS: There is rightward bowing of nasal septum. Intralamellar cell of left middle nasal turbinate. Moderate soft tissue swelling of the nasal turbina chinyere. The ostiomeatal units are patent. The paranasal sinuses and mastoid air cells are normally developed and aerated. IMPRESSION: Rightward bowing of nasal septum Intralamellar cell of left middle nasal turbinate Patent ostiomeatal units, paranasal sinuses and mastoid air cells Reviewed, dictated and finalized at [facility]. Reviewed, dictated and finalized at [facility].
== END 2023-12-26 12:30 | disposition home or self-care (01) ==
LOC: ANHIMG 12:33
PROVIDERS: PCP Family Medicine; Visit Provider Family Medicine
DX: J32.9 Chronic sinusitis, unspecified (principal); J34.2 Deviated nasal septum; J34.3 Hypertrophy of nasal turbinates
CPT/HCPCS: 70486